=== PATIENT | female | born 1990 | race Caucasian/White ===

== ENCOUNTER 2021-02-15 09:59 | Emergency (ER) | payer OTHER, SELFPAY ==
--- NOTE | ~2021-02-15 | XR_ITS ---
EXAMINATION: XR CHEST CLINICAL INFORMATION: Shortness of breath COMPARISON: None TECHNIQUE: Frontal view of the chest was obtained. FINDINGS: No significant abnormality is noted involving the heart, lungs, mediastinum, bony thorax or soft tissues. XR/XR chest 1V IMPRESSION: Unremarkable examination.
[2021-02-15 10:47] LABS: Basophils Percent Auto 0.6 % (0-2); Lymphocytes Absolute Auto 2.2 X10*3/uL (1.2-4.9); MANUAL DIFF FLAG SCAN; SCAN SMEAR FLAG 1
[2021-02-15 10:49] LABS: Eosinophils Absolute Auto 0.1 X10*3/uL (0.0-0.4); Hematocrit 35.6 % (37-47); Hemoglobin 10.2 g/dl (12.0-16.0); Imm Gran Abs Auto 0.01 X10*3/uL (0.00-0.03); Imm Gran Pct Auto 0.2 % (0.0-0.4); Lymphocytes Percent Auto 46.3 % (20-40); Mean Corpuscular HGB Conc 28.7 g/dl (31.0-35.0); Mean Corpuscular Hemoglobin 19.4 pg (27.0-33.0); Mean Corpuscular Volume 67.8 fL (80-98); Monocytes Absolute Auto 0.4 X10*3/uL (0.1-1.2); Monocytes Percent Auto 7.6 % (2-11); Neutrophils Absolute Auto 2.1 X10*3/uL (2.0-8.3); Neutrophils Percent Auto 44.3 % (45-73); Platelet Count 192 X10*3/uL (160-400); Red Blood Count 5.25 X10*6/uL (4.20-5.50); Red Cell Distribution Width 17.8 % (11.0-16.0); White Blood Count 4.8 X10*3/uL (4.8-10.8)
[2021-02-15 10:52] LABS: PLT ABN DIST 1
--- NOTE | 2021-02-15 10:59 | ECG_ITS ---
Test Reason : CP Blood Pressure : / mmHG Vent. Rate : 072 BPM Atrial Rate : 072 BPM P-R Int : 110 ms QRS Dur : 076 ms QT Int : 368 ms P-R-T Axes : 042 060 024 degrees QTc Int : 402 ms Sinus rhythm with short NM Otherwise normal ECG No previous ECGs available Referred By: Generic ED Physician Electronically Signed By:NI ALLAN
[2021-02-15 11:18] LABS: Anion Gap 9 (12-20); Blood Urea Nitrogen 12 mg/dL (9-16); Calcium 8.7 mg/dL (8.4-10.2); Carbon Dioxide 26 mmol/L (22-29); Chloride 109 mmol/L (96-108); Estimated Glomerular Filt Rate > 60; Glucose Random 73 mg/dL (60-115); Potassium 4.3 mmol/L (3.3-5.1); Sodium 140 mmol/L (135-145)
[2021-02-15 12:34] VITALS: BP 116/72; PULSE 76; RESP 18; TEMP 36.8; O2SAT 100; BMI 20.8
[2021-02-15 13:26] LABS: Troponin-I High Sensitivity < 3.5 ng/L (<3.5-17.0)
--- NOTE | 2021-02-15 14:15 | ED.CHESTPAIN ---
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 States no previous EKG. States the pain in her chest is more with certain movements and palpation of the left-sided chest like she ?pulled a muscle? she otherwise denies any recent illness no cough no fever. Additionally she does report history of anemia 4+ months ago and is supposed to be on iron pill which she complies with intermittently. MD complaint: chest discomfort Prior episodes: No Pain location: left chest Severity: mild Quality: aching Relieving factors: rest Exacerbating factors: palpation and movement Treatment prior to arrival: none Related Data Allergies Allergy/AdvReac Type Severity Reaction Status Date / Time No Known Allergies Allergy Mild UNKNOWN Unverified 07/26/20 15:53 Review of Systems Review of Systems: Constitutional: No Weight loss, No Fever, No Chills, No Night Sweats, No Fatigue, No Malaise ENT/Mouth: No Hearing loss, No Ear Pain, No Nasal Congestion, No Sinus Pain, No Hoarseness, No sore throat, No Rhinorrhea, No Swallowing Difficulty Eyes: No Eye Pain, No Swelling, No Redness, No Foreign Body, No Discharge, No Vision Changes Cardiovascular: + Chest Pain, No SOB, No Dyspnea on Exertion, No Orthopnea, No Edema, No Palpitations Respiratory: No Cough, No Sputum, No Wheezing, No Smoke Exposure, No Dyspnea Gastrointestinal: No Nausea, No Vomiting, No Diarrhea, No Constipation, No abdominal Pain, No Hematochezia, No Melena Genitourinary: no irregular bleeding, No Dysuria, No Urinary Frequency, No Hematuria, No Urinary Incontinence, No Urgency, No Flank Pain, No Urinary Flow Changes, No Hesitancy Musculoskeletal: No joint pain, No Myalgias, No Joint Swelling Skin: No Skin Lesions, No rash Neuro: No Weakness, No Numbness, No Paresthesias, No Loss of Consciousness, No Dizziness, No Headache Psych: No Social Issues Heme/Lymph: No Bruising, No Bleeding,No Lymphadenopathy Endocrine: No Polyuria, No Polydipsia, No Temperature Intolerance Yes all other systems are reviewed and are negative [facility] Social History Social History Alcohol intake: never Smoking Status: Never smoker Use of substances other than those prescribed or required for medical reasons: No Advance Directives: Yes Advance Directives Information Provided: No Advance Directives on File: No Physical Exam Vital Signs: Vital Signs: Last Vital Signs Temp 98.6 F 02/15/21 14:57 Pulse 87 02/15/21 16:24 Resp 20 02/15/21 16:24 BP 123/72 02/15/21 16:24 Pulse Ox 98 02/15/21 16:24 Body Mass Index 20.8 Reviewed Const: General: cooperative and healthy appearing; No acute distress or intoxicated appearing Nutritional Appearance: average body habitus Orientation/consciousness: patient oriented x3 HENMT: Head: Yes normal to inspection Ears: hearing grossly normal bilaterally Eyes: General: appearance normal, both eyes and all related structures Visual Garcia: normal visual garcia by confrontation Neck: Neck: Yes normal visual inspection, No positive Brudzinski's sign, No positive Kernig's sign and No tender Thyroid: Thyroid normal Chest: Chest palpation & inspection: normal inspection of the chest and tenderness pectoral muscle on the left Resp: Effort & Inspection: normal respiratory effort Cardio: Jugular venous distension: no JVD Rhythm: regular rhythm Heart sounds: S1 normal heart sound present and S2 normal heart sound present GI: Inspection: Yes normal to inspection Percussion: Yes normal to percussion Auscultation: normal bowel sounds : General: Yes no CVA tenderness Back/Spine/Pelvis: Back: no CVA tenderness Skin: General skin exam: no rashes or lesions noted Neuro: General: patient oriented x3 Extrem: General: Yes normal to inspection Course Course Course Narrative: Anemia consistent with chronic states this is much better for her she was down to 5 she is taking her iron supplement. Atypical chest pain more consistent with musculoskeletal in etiology involving the pectoral muscle region. T-wave inversion in lead V1 and V2 consistent with persistent juvenile T-wave pattern. Does have some family history of heart disease at this time otherwise no acute findings. D-dimer/troponin negative. Will have her follow up with outpatient Cardiology for further evaluation and treatment. MDM - Chest Pain Lab Data Result diagrams: 02/15/21 10:30 02/15/21 10:30 Labs: Lab Results 02/15/21 02/15/21 02/15/21 Range/Units 10:30 10:30 10:30 WBC 4.8 (4.8-10.8) X10*3/uL RBC 5.25 (4.20-5.50) X10*6/uL Hgb 10.2 L (12.0-16.0) g/dl Hct 35.6 L (37-47) % MCV 67.8 L (80-98) fL MCH 19.4 L (27.0-33.0) pg MCHC 28.7 L (31.0-35.0) g/dl RDW 17.8 H (11.0-16.0) % Plt Count 192 (160-400) X10*3/uL MPV 10.0 (9.4-12.3) fL Immature Gran % (Auto) 0.2 (0.0-0.4) % Neut % (Auto) 44.3 L (45-73) % Lymph % (Auto) 46.3 H (20-40) % [place] % (Auto) 7.6 (2-11) % Eos % (Auto) 1.0 (0-4) % Baso % (Auto) 0.6 (0-2) % Lymph # (Auto) 2.2 (1.2-4.9) X10*3/uL [place] # (Auto) 0.4 (0.1-1.2) X10*3/uL Eos # (Auto) 0.1 (0.0-0.4) X10*3/uL Baso # (Auto) 0.0 (0.0-0.2) X10*3/uL Abs Immat Gran (auto) 0.01 (0.00-0.03) X10*3/uL Absolute Neuts (auto) 2.1 (2.0-8.3) X10*3/uL Absolute Nucleated RBC 0.000 (0.0-0.012) X10*3/uL Nucleated RBC % (auto) 0.0 (0.0-0.2) /100WBC Smear Tech's Comments Not Reportable PT (10.8-13.0) SEC INR (0.9-1.1) APTT (24.1-38.0) SEC D-Dimer NG/ML Sodium 140 (135-145) mmol/L Potassium 4.3 (3.3-5.1) mmol/L Chloride 109 H (96-108) mmol/L Carbon Dioxide 26 (22-29) mmol/L Anion Gap 9 L (12-20) BUN 12 (9-16) mg/dL Creatinine 0.82 (0.5-1.4) mg/dL Estim Creat Clear Calc TNP Estimated GFR > 60 Random Glucose 73 (60-115) mg/dL Calcium 8.7 (8.4-10.2) mg/dL Magnesium 2.0 (1.6-2.6) mg/dL Total Bilirubin 0.2 (0.0-1.0) mg/dL Direct Bilirubin < 0.2 (0.0-0.5) mg/dL AST 23 (5-31) U/L ALT 26 (0-31) U/L Alkaline Phosphatase 92 (39-117) U/L Troponin I High Sens < 3.5 (<3.5-17.0) ng/L Total Protein 6.9 (6.5-8.0) g/dL Albumin 4.2 (3.5-5.0) g/dL TSH 0.99 (0.32-4.0) uIU/mL Urine Color Urine Appearance Urine pH (5.0-8.0) Ur Specific Somis (1.005-1.025) Urine Protein (NEG-TRACE) MG/DL Urine Glucose (UA) (NEG) MG/DL Urine Ketones (NEG) MG/DL Urine Blood (NEG) Urine Nitrite (NEG) Ur Leukocyte Esterase (NEG) Urine RBC (0) /HPF Urine WBC (0-4) /HPF Ur Squamous Epith Cells /LPF Urine Bacteria /LPF Urine Test (NEGATIVE) 02/15/21 02/15/21 02/15/21 Range/Units 15:12 15:22 15:22 WBC (4.8-10.8) X10*3/uL RBC (4.20-5.50) X10*6/uL Hgb (12.0-16.0) g/dl Hct (37-47) % MCV (80-98) fL MCH (27.0-33.0) pg MCHC (31.0-35.0) g/dl RDW (11.0-16.0) % Plt Count (160-400) X10*3/uL MPV (9.4-12.3) fL Immature Gran % (Auto) (0.0-0.4) % Neut % (Auto) (45-73) % Lymph % (Auto) (20-40) % [place] % (Auto) (2-11) % Eos % (Auto) (0-4) % Baso % (Auto) (0-2) % Lymph # (Auto) (1.2-4.9) X10*3/uL [place] # (Auto) (0.1-1.2) X10*3/uL Eos # (Auto) (0.0-0.4) X10*3/uL Baso # (Auto) (0.0-0.2) X10*3/uL Abs Immat Gran (auto) (0.00-0.03) X10*3/uL Absolute Neuts (auto) (2.0-8.3) X10*3/uL Absolute Nucleated RBC (0.0-0.012) X10*3/uL Nucleated RBC % (auto) (0.0-0.2) /100WBC Smear Tech's Comments PT 13.8 H (10.8-13.0) SEC INR 1.2 H (0.9-1.1) APTT 30.7 (24.1-38.0) SEC D-Dimer < 200 NG/ML Sodium (135-145) mmol/L Potassium (3.3-5.1) mmol/L Chloride (96-108) mmol/L Carbon Dioxide (22-29) mmol/L Anion Gap (12-20) BUN (9-16) mg/dL Creatinine (0.5-1.4) mg/dL Estim Creat Clear Calc Estimated GFR Random Glucose (60-115) mg/dL Calcium (8.4-10.2) mg/dL Magnesium (1.6-2.6) mg/dL Total Bilirubin (0.0-1.0) mg/dL Direct Bilirubin (0.0-0.5) mg/dL AST (5-31) U/L ALT (0-31) U/L Alkaline Phosphatase (39-117) U/L Troponin I High Sens (<3.5-17.0) ng/L Total Protein (6.5-8.0) g/dL Albumin (3.5-5.0) g/dL TSH (0.32-4.0) uIU/mL Urine Color YELLOW Urine Appearance CLEAR Urine pH 7.5 (5.0-8.0) Ur Specific [place] 1.015 (1.005-1.025) Urine Protein NEG (NEG-TRACE) MG/DL Urine Glucose (UA) NEG (NEG) MG/DL Urine Ketones NEG (NEG) MG/DL Urine Blood NEG (NEG) Urine Nitrite NEG (NEG) Ur Leukocyte Esterase NEG (NEG) Urine RBC 0-2 (0) /HPF Urine WBC 0-2 (0-4) /HPF Ur Squamous Epith Cells TRACE /LPF Urine Bacteria 1+ /LPF Urine Test NEGATIVE (NEGATIVE) Discharge Plan Discharge Clinical Impression: Atypical chest pain, Electrocardiogram showing T wave abnormalities Iron deficiency anemia Qualifiers: Iron deficiency anemia type: unspecified iron deficiency Qualified Code(s): D50.9 - Iron deficiency anemia, unspecified Patient Disposition: Home, Self-Care Instructions: Chest Pain (ED), Iron Rich Diet (ED) Additional Instructions: Iron rich diet 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
[2021-02-15 14:46] LABS: Alanine Aminotransferase 26 U/L (0-31); Albumin Level 4.2 g/dL (3.5-5.0); Alkaline Phosphatase 92 U/L (39-117); Aspartate Amino Transferase 23 U/L (5-31); Bilirubin Direct < 0.2 mg/dL (0.0-0.5); Bilirubin Total 0.2 mg/dL (0.0-1.0); Total Protein 6.9 g/dL (6.5-8.0)
[2021-02-15 14:57] VITALS: BP 123/72; PULSE 80; RESP 17; TEMP 37; O2SAT 97
[2021-02-15 15:04] LABS: Thyroid Stimulating Hormone 0.99 uIU/mL (0.32-4.0)
[2021-02-15 15:23] LABS: INTERNATIONAL NORM RATIO 1.2 (0.9-1.1); Prothrombin Time 13.8 SEC (10.8-13.0)
[2021-02-15 15:26] LABS: Partial Thromboplastin Time 30.7 SEC (24.1-38.0)
[2021-02-15 15:34] LABS: D Dimer < 200 NG/ML
[2021-02-15 15:44] LABS: Glucose Urine UA NEG (NEG); Leukocyte Esterase Urine NEG (NEG); Nitrite Urine NEG (NEG); PH 7.5 (5.0-8.0); Specific Gravity - Urine 1.015 (1.005-1.025); Urine Blood NEG (NEG); Urine Ketones NEG (NEG); Urine Protein NEG (NEG-TRACE)
[2021-02-15 15:51] LABS: Appearance Urine CLEAR; Color Urine YELLOW
[2021-02-15 15:58] LABS: Bacteria Urine 1+ /LPF; RBC Urine 0-2 /HPF (0); Squamous Epithelial Cell Urine TRACE /LPF; WBC Urine 0-2 /HPF (0-4)
[2021-02-15 15:59] LABS: UPreg QC Valid YES; Urine Pregnancy NEGATIVE (NEGATIVE)
[2021-02-15 16:24] VITALS: BP 123/72; PULSE 87; RESP 20; O2SAT 98
== END 2021-02-15 16:52 | disposition home or self-care (01) ==
PROVIDERS: Nurse Practitioner Primary Care; Emergency Provider Internal Medicine; PCP Internal Medicine
DX: R07.89 Other chest pain (principal); D50.9 Iron deficiency anemia, unspecified; R94.31 Abnormal electrocardiogram [ECG] [EKG]
CPT/HCPCS: 36415; 71045; 80048; 80076; 81001; 81025; 83735; 84443; 84484; 85025; 85379; 85610; 85730; 93005; 99283; 99285

== ENCOUNTER 2021-09-17 15:46 | Outpatient (REF) | payer OTHER, SELFPAY ==
[2021-09-17 16:02] LABS: IDNOW Serial# 08D9AD1C; Strep A Nucleic Acid Negative (Negative)
[2021-09-17 16:43] LABS: Influenza A PCR NEGATIVE (Negative); Influenza B PCR NEGATIVE (Negative); Resp Syncy Virus RNA Qual PCR NEGATIVE (Negative); SARS COV2 PCR INHOUSE NEGATIVE (Negative)
== END 2021-09-17 15:47 | disposition home or self-care (01) ==
LOC: HO.LNP 15:46
PROVIDERS: Visit Provider Internal Medicine
DX: Z20.822 Contact with and (suspected) exposure to COVID-19 (principal); J02.9 Acute pharyngitis, unspecified; R53.83 Other fatigue
CPT/HCPCS: 0241U; 87651

== ENCOUNTER 2021-11-04 14:35 | Outpatient (REF) | payer OTHER, SELFPAY ==
[2021-11-04 16:08] LABS: Influenza A PCR NEGATIVE (Negative); Influenza B PCR NEGATIVE (Negative); Resp Syncy Virus RNA Qual PCR NEGATIVE (Negative); SARS COV2 PCR INHOUSE POSITIVE (Negative)
== END 2021-11-04 14:36 | disposition home or self-care (01) ==
LOC: HO.LNP 14:35
PROVIDERS: Visit Provider Internal Medicine
DX: Z20.822 Contact with and (suspected) exposure to COVID-19 (principal)
CPT/HCPCS: 0241U

== ENCOUNTER 2024-10-21 17:14 | Inpatient (IN) | payer OTHER, SELFPAY ==
[2024-10-21] VITALS (9 sets, daily range): BP systolic 121–151; BP diastolic 67–97; PULSE 90–119; RESP 18–24; TEMP 36.6–37.3; O2SAT 89–98; BMI 18.9
--- NOTE | ~2024-10-21 | US_ITS ---
EXAMINATION: US ABDOMEN LIMITED CLINICAL INFORMATION: Large mass on CT angiogram chest. COMPARISON: None available. TECHNIQUE: Real-time imaging of the right upper quadrant abdominal viscera. FINDINGS: PANCREAS: Visualized portions are unremarkable. LIVER: Focal area of increased echogenicity corresponding to focal fatty infiltration, corresponding to the area of decreased attenuation on CT. The liver contour is normal. Parenchymal generalized echogenicity is normal. There is no intrahepatic biliary duct dilatation seen. GALLBLADDER: Gallbladder wall measures 0.3 cm. Partially contracted. Question subtle fluid within gallbladder wall, but no definite gallbladder wall thickening COMMON BILE DUCT: Normal in caliber measuring 0.1 cm in diameter. RIGHT KIDNEY: The kidney measures 8.7 cm in length. Stone in the midpole measuring 0.2 cm. No hydronephrosis.. FREE FLUID: None. US/US abdomen limited IMPRESSION: 1. Focal fatty infiltration of liver corresponding to the area of decreased attenuation on CT. 2. Question subtle fluid within the gallbladder wall, but no definite gallbladder wall thickening. No gallstones. Suspect normal variation. 3. Nonobstructing right renal stone. Electronically signed by: Baron Martinez MD 10/21/2024 11:03 PM [facility]
--- NOTE | ~2024-10-21 | CT_ITS ---
EXAMINATION: CT ANGIOGRAM OF THE CHEST WITH AND WITHOUT CONTRAST (CT PULMONARY ANGIOGRAM FOR PE) CLINICAL INFORMATION: Shortness of breath, tachycardia, ?PE COMPARISON: No pertinent prior studies are available for comparison. TECHNIQUE: Prior to contrast administration, noncontrast localization images were obtained. Subsequently, multidetector volumetric imaging was performed from the thoracic inlet to the pubic symphysis through the chest, abdomen, and pelvis following the administration of 65 mL Omnipaque 350 intravenous contrast. No contrast reaction reported Sagittal, coronal, and MIP oblique sagittal (through the chest only) reformatted images were obtained on the CT workstation, uploaded to PACS, and reviewed. This CT examination was performed using dose optimization techniques as appropriate, variously including the following: *Automated exposure control *Adjustment of mA and/or kV according to patient size (this includes techniques or standardized protocols for targeted exams where dose is matched to indication/reason for exam; i.e. extremities or head) *Use of iterative reconstruction technique Total exam dose-length product: 148 mGy-cm FINDINGS: QUALITY OF STUDY/CONTRAST BOLUS: Satisfactory. PULMONARY ARTERIES: No central or segmental pulmonary emboli. CORONARY ARTERY CALCIUM: None seen THORACIC AORTA: No aneurysm or dissection. LUNG: There is moderate emphysema with hyperinflated lungs. Biapical pleural-parenchymal scarring is present. There is bronchial thickening without bronchiectasis. No focal consolidations. PLEURA: No pleural effusion or pneumothorax. MEDIASTINUM: There is an aberrant right subclavian artery. Normal heart size. No pericardial effusion. No hilar or mediastinal lymphadenopathy. No evidence of septal bowing or right heart strain. CHEST WALL/AXILLA: No axillary or internal mammary lymphadenopathy. OSSEOUS STRUCTURES: No acute or suspicious osseous abnormality. VISUALIZED ABDOMEN: No significant findings in the upper abdomen. Geographic area of hypoattenuation adjacent to the falciform ligament in the right lobe of the liver probably representing focal fat. Ultrasound is recommended to exclude a mass. CT/CT angio chest PE protocol IMPRESSION: 1. No evidence of pulmonary emboli. 2. Moderate emphysema. 3. Geographic area of hypoattenuation adjacent to the falciform ligament in the right lobe of the liver probably representing focal fat. Ultrasound is recommended to exclude a mass. VTE: negative. Fleischner guidelines were followed. Electronically signed by: Justin Stone MD 10/21/2024 09:30 PM EST
--- NOTE | ~2024-10-21 | XR_ITS ---
EXAMINATION: XR CHEST CLINICAL INFORMATION: shortness of breath COMPARISON: None available. TECHNIQUE: 2 views of the chest were obtained. FINDINGS: No significant abnormality is noted involving the heart, lungs, mediastinum, bony thorax or soft tissues. XR/XR chest 2V IMPRESSION: Unremarkable examination. Electronically signed by: Homero Trinidad MD 10/21/2024 06:30 PM [facility] [place]
--- NOTE | 2024-10-21 17:28 | ED.ASTHMA ---
HPI - Asthma General Chief Complaint: Asthma Stated Complaint: diff breathing, asthma. o2 98% on duo neb Time Seen by Provider: 10/21/24 17:20 Source: patient and EMS Mode of arrival: EMS Limitations: no limitations History of Present Illness ED Provider: Dilia Chavez NP HPI Narrative: Patient is a 34-year-old female who presents to the emergency department for evaluation. She reports that she began experiencing shortness of breath last night that she feels is consistent with an asthma attack. She has been experiencing a recently intermittent productive cough. She states that she was sitting in a local [employer] all day today because she could not tolerate being outside. Ultimately EMS was called. Prior to arrival to the hospital she was given a DuoNeb updraft, magnesium 2 g IV and Solu-Medrol IV. She reports some improvement in her symptoms after receiving this. On arrival O2 saturation was 89% on room air, placed back on 2 L via nasal cannula and O2 saturation increased to 95%, she is tachycardic and tachypneic. She denies known fever, chills, sick contacts, neck pain, palpitations, chest pain, nausea, vomiting, abdominal pain, numbness or tingling of the extremities, recent lower extremity pain or swelling. She is very tearful at the time of my initial evaluation. She admits that she is currently homeless. She was recently at [facility], and sent to [facility] from which she left about 3 weeks ago, her plan was to, home with her parents but she states ?that plan fell through?. She does admit that she has been smoking crack cocaine but states she has not used since yesterday. Admits to a history of IV heroin usage but reports that she has not used in 5 months. States that she was taking Suboxone, but recently her tent group home was removed by personnel including her prescription for Suboxone. She states that she has been trying to bite off the street but it has proven to expensive for her to do so. Uncertain when she last took her Suboxone. Related Data Allergies Allergy/AdvReac Type Severity Reaction Status Date / Time No Known Allergies Allergy Mild UNKNOWN Unverified 10/21/24 17:25 Review of Systems Review of Systems: Yes all other systems are reviewed and are negative PMFSH Past Medical History Attestation statement: The following information was validated with the patient. Source: old records reviewed Social History Social History (System 09/08/23 @ 13:36 by Teresa Klein) Alcohol intake: never Smoked in Last 30 Days: No Use of substances other than those prescribed or required for medical reasons: Yes Substance Use Type: Crack/Cocaine Advance Directives: No Advance Directives Information Provided: No Physical Exam Vital Signs: Vital Signs: Last Vital Signs Temp 97.8 F 10/21/24 23:23 Pulse 95 10/21/24 23:23 Resp 20 10/21/24 23:23 BP 121/72 10/21/24 23:23 Pulse Ox 93 10/21/24 23:23 O2 Del Method Room Air 10/21/24 23:23 O2 Flow Rate 3 10/21/24 20:43 BMI result Body Mass Index 18.9 Appearance: Alert.?Oriented to person, place and time. Tearful. Anxious. Eyes: Pupils equal, round and reactive to light.? ENT: Pharynx normal.?? Neck: Normal inspection.? Neck supple.?? CVS: Heart sounds normal. Tachycardic.? Pulses normal.?? Respiratory: Tachypneic, no tripoding. Room-air hypoxia. Lung sounds rhonchi bilaterally Abdomen: Soft and non-tender. Normoactive bowel sounds. Skin: Skin warm and dry.? Normal skin color.? Extremities: No lower extremity edema.? No calf ttp? Neuro: Moves all extremities spontaneously. Sensation intact bilaterally. No focal neuro deficits. Ambulates with normal steady gait. Course Reevaluation(s) Reevaluation #1: Patient signed out to Abdon AMARO pending CT angio of the chest re-evaluation. Time: 21:04 Reevaluation #2: Christine Quiroz PA-C have accepted care of the patient and signed out pending imaging and final disposition I have independently reviewed the following tests: CT angio chest: CT/CT angio chest PE protocol IMPRESSION: 1. No evidence of pulmonary emboli. 2. Moderate emphysema. 3. Geographic area of hypoattenuation adjacent to the falciform ligament in the right lobe of the liver probably representing focal fat. Ultrasound is recommended to exclude a mass. VTE: negative. Fleischner guidelines were followed. We will add on LFTs and obtain a liver ultrasound given the finding on the CT angiogram Ultrasound of the liver: US/US abdomen limited IMPRESSION: 1. Focal fatty infiltration of liver corresponding to the area of decreased attenuation on CT. 2. Question subtle fluid within the gallbladder wall, but no definite gallbladder wall thickening. No gallstones. Suspect normal variation. 3. Nonobstructing right renal stone. Electronically signed by: Baron Martinez MD 10/21/2024 11:03 [place] [facility] [place] normal Patient received ceftriaxone already, we will add doxy, she can not have azithromycin or fluoroquinolone given she has a QT prolongation on her EKG Medications Administered Discontinued Medications Generic Name Dose Route Start Last Admin Trade Name Freq PRN Reason Stop Dose Admin Ceftriaxone Sodium 1 gm 10/21/24 17:39 10/21/24 18:19 Ceftriaxone Sodium 1 Gm Vial IVPUSH 10/21/24 17:40 1 gm ONCE ONE Administration Albuterol Sulfate 7.5 mg/ 0 mg 10/21/24 20:47 10/21/24 20:50 Albuterol/Ipratropium 3 ml INHALE 10/21/24 20:48 1 each ONCE ONE Administration Sodium Chloride 1,000 mls @ 999 mls/hr 10/21/24 20:45 10/21/24 22:11 Ns IV 10/21/24 21:45 Infused .Q1H1M PUMA Infusion Iohexol 65 ml 10/21/24 20:13 10/21/24 20:13 Iohexol 350 Mg/Ml 100 Ml Infus..Btl IV 10/21/24 20:14 65 ml ONCE ONE Administration Medical Decision Making Medical Decision Making MDM Narrative: Patient is a 34-year-old female with reported past medical history of asthma, polysubstance use disorder presenting to emergency department for evaluation of shortness of breath since yesterday as per HPI. Arrives tearful, anxious, tachypneic and tachycardic with room air hypoxia. Pre-hospital she received DuoNeb updraft, Solu-Medrol IV and magnesium IV. Concern for asthma exacerbation versus possible pneumonia., Will obtain CBC to evaluate for leukocytosis/ anemia, CMP and lipase to evaluate for abnormal electrolytes /abnormal renal function/ abnormal hepatic/biliary function, EKG and troponin to evaluate for ischemia/ACS. Chest x-ray to evaluate for consolidation/ infiltrate/ mass/ pulmonary congestion and Urinalysis. Remains on 2 L via nasal cannula due to hypoxic respiratory failure on room air Differential Diagnosis Differential Diagnoses: The differential diagnosis associated with the presentation includes Overall well-appearing, nontoxic, afebrile, no respiratory distress. No rash or lesions, urticaria, or evidence of angioedema to suggest allergic reaction/anaphylaxis. No swallowing difficulties to suggest aspiration. No associated chest pain, lower extremity redness pain or swelling, history of VTE/malignancy to suggest ACS. CHF, pericardial effusion, or pulmonary embolism. No palpitations or history of known arrhythmias. No recent trauma or injury, no tracheal deviation, unlikely tension pneumothorax. No history of diabetes, unlikely DKA. No acute bleeding or known anemia, no associated dizziness fatigue or chest pain to suggest acute anemia. Admission/Observation Consideration of admission/observation: Escalation of care including admission/observation considered (See narrative above in course narrative for further detail) Lab Data MDM Lab Attestation statement: I reviewed the patient's lab results. 10/21/24 18:18 10/21/24 18:17 Labs: Lab Results 10/21/24 10/21/24 10/21/24 Range/Units 18:17 18:18 19:32 WBC 15.9 H (4.8-10.8) X10*3/uL RBC 5.44 (4.20-5.50) X10*6/uL Hgb 13.6 (12.0-16.0) g/dl Hct 42.2 (37.0-47.0) % MCV 77.6 L (80.0-98.0) fL MCH 25.0 L (27.0-33.0) pg MCHC 32.2 (31.0-35.0) g/dl RDW 13.1 (11.0-16.0) % Plt Count TNP MPV TNP Immature Gran % (Auto) 0.3 (0.0-0.4) % Neut % (Auto) 86.9 H (45-73) % Lymph % (Auto) 6.5 L (20-40) % [place] % (Auto) 4.1 (2-11) % Eos % (Auto) 1.9 (0-4) % Baso % (Auto) 0.3 (0-2) % Lymph # (Auto) 1.0 L (1.2-4.9) X10*3/uL [place] # (Auto) 0.7 (0.1-1.2) X10*3/uL Eos # (Auto) 0.3 (0.0-0.4) X10*3/uL Baso # (Auto) 0.1 (0.0-0.2) X10*3/uL Abs Immat Gran (auto) 0.05 H (0.00-0.03) X10*3/uL Absolute Neuts (auto) 13.8 H (2.0-8.3) x10*3/uL Absolute Nucleated RBC 0.000 (0.0-0.012) X10*3/uL Nucleated RBC % (auto) 0.0 (0.0-0.2) /100WBC Smear Tech's Comments VERIFIED ESR 3 (0-20) MM/HR PT 12.7 H (10.9-12.4) SEC INR 1.1 (0.9-1.1) Sodium 142 (135-145) mmol/L Potassium 3.5 (3.3-5.1) mmol/L Chloride 103 (96-108) mmol/L Carbon Dioxide 26 (22-29) mmol/L Anion Gap 17 (12-20) BUN 6 L (9-16) mg/dL Creatinine 0.66 (0.5-1.4) mg/dL Estim Creat Clear Calc 85.2 Estimated GFR > 60 Random Glucose 125 H (60-115) mg/dL Lactic Acid 1.8 (0.5-2.0) mmol/L Calcium 9.0 (8.4-10.2) mg/dL Magnesium 3.0 H (1.6-2.6) mg/dL Total Bilirubin 0.3 (0.0-1.0) mg/dL Direct Bilirubin (0.0-0.5) mg/dL AST 29 (5-31) U/L ALT 24 (0-31) U/L Alkaline Phosphatase 89 (39-117) U/L Troponin I High Sens < 2.7 (<3.5-17.0) ng/L C-Reactive Protein 0.58 H (< or = 0.50) mg/dL B-Natriuretic Peptide 113 H (<100) pg/mL Total Protein 7.4 (6.5-8.0) g/dL Albumin 4.4 (3.5-5.0) g/dL Lipase 10 (8-78) U/L Beta HCG, Quant < 2 mIU/mL Urine Color Yellow Urine Appearance Clear Urine pH 7.0 (5.0-9.0) Ur Specific [place] <= 1.005 (1.005-1.025) Urine Protein Negative (Neg-Trace) mg/dL Urine Glucose (UA) 500 H (Negative) mg/dL Urine Ketones Negative (Negative) mg/dL Urine Blood Trace H (Negative) Urine Nitrite Negative (Negative) Ur Leukocyte Esterase Trace H (Negative) Urine RBC 0-2 (0-2) /HPF Urine WBC 0-5 (0-5) /HPF Ur Squamous Epith Cells 0-2 (0-2) /HPF Urine Bacteria None Seen (None Seen) Hyaline Casts 0-2 (0-2) /LPF Urine Opiates Screen Not Detected (Not Detect) Ur Buprenorphine Scrn Positive H (Not Detect) ng/mL Ur Oxycodone Screen Not Detected (Not Detect) ng/mL Urine Methadone Screen Not Detected (Not Detect) ng/mL Urine Fentanyl Screen Not Detected (Not Detect) Ur Barbiturates Screen Not Detected (Not Detect) Ur Phencyclidine Scrn Not Detected (Not Detect) Ur Amphetamines Screen Not Detected (Not Detect) U Benzodiazepines Scrn Not Detected (Not Detect) Urine Cocaine Screen POSITIVE H (Not Detect) U Marijuana (THC) Screen Not Detected (Not Detect) Influenza Type A (PCR) NEGATIVE (Negative) Influenza Type B (PCR) NEGATIVE (Negative) RSV RNA Qual (PCR) NEGATIVE (Negative) SARS-CoV-2 RNA (RT-PCR) NEGATIVE (Negative) 10/21/24 Range/Units 20:55 WBC (4.8-10.8) X10*3/uL RBC (4.20-5.50) X10*6/uL Hgb (12.0-16.0) g/dl Hct (37.0-47.0) % MCV (80.0-98.0) fL MCH (27.0-33.0) pg MCHC (31.0-35.0) g/dl RDW (11.0-16.0) % Plt Count MPV Immature Gran % (Auto) (0.0-0.4) % Neut % (Auto) (45-73) % Lymph % (Auto) (20-40) % [place] % (Auto) (2-11) % Eos % (Auto) (0-4) % Baso % (Auto) (0-2) % Lymph # (Auto) (1.2-4.9) X10*3/uL [place] # (Auto) (0.1-1.2) X10*3/uL Eos # (Auto) (0.0-0.4) X10*3/uL Baso # (Auto) (0.0-0.2) X10*3/uL Abs Immat Gran (auto) (0.00-0.03) X10*3/uL Absolute Neuts (auto) (2.0-8.3) x10*3/uL Absolute Nucleated RBC (0.0-0.012) X10*3/uL Nucleated RBC % (auto) (0.0-0.2) /100WBC Smear Tech's Comments ESR (0-20) MM/HR PT (10.9-12.4) SEC INR (0.9-1.1) Sodium (135-145) mmol/L Potassium (3.3-5.1) mmol/L Chloride (96-108) mmol/L Carbon Dioxide (22-29) mmol/L Anion Gap (12-20) BUN (9-16) mg/dL Creatinine (0.5-1.4) mg/dL Estim Creat Clear Calc Estimated GFR Random Glucose (60-115) mg/dL Lactic Acid (0.5-2.0) mmol/L Calcium (8.4-10.2) mg/dL Magnesium (1.6-2.6) mg/dL Total Bilirubin 0.2 (0.0-1.0) mg/dL Direct Bilirubin < 0.2 (0.0-0.5) mg/dL AST 26 (5-31) U/L ALT 24 (0-31) U/L Alkaline Phosphatase 84 (39-117) U/L Troponin I High Sens < 2.7 (<3.5-17.0) ng/L C-Reactive Protein (< or = 0.50) mg/dL B-Natriuretic Peptide (<100) pg/mL Total Protein 6.8 (6.5-8.0) g/dL Albumin 4.1 (3.5-5.0) g/dL Lipase (8-78) U/L Beta HCG, Quant mIU/mL Urine Color Urine Appearance Urine pH (5.0-9.0) Ur Specific [place] (1.005-1.025) Urine Protein (Neg-Trace) mg/dL Urine Glucose (UA) (Negative) mg/dL Urine Ketones (Negative) mg/dL Urine Blood (Negative) Urine Nitrite (Negative) Ur Leukocyte Esterase (Negative) Urine RBC (0-2) /HPF Urine WBC (0-5) /HPF Ur Squamous Epith Cells (0-2) /HPF Urine Bacteria (None Seen) Hyaline Casts (0-2) /LPF Urine Opiates Screen (Not Detect) Ur Buprenorphine Scrn (Not Detect) ng/mL Ur Oxycodone Screen (Not Detect) ng/mL Urine Methadone Screen (Not Detect) ng/mL Urine Fentanyl Screen (Not Detect) Ur Barbiturates Screen (Not Detect) Ur Phencyclidine Scrn (Not Detect) Ur Amphetamines Screen (Not Detect) U Benzodiazepines Scrn (Not Detect) Urine Cocaine Screen (Not Detect) U Marijuana (THC) Screen (Not Detect) Influenza Type A (PCR) (Negative) Influenza Type B (PCR) (Negative) RSV RNA Qual (PCR) (Negative) SARS-CoV-2 RNA (RT-PCR) (Negative) Independent Interpretation I performed an independent interpretation of an: EKG and Plain X-Ray (No Consolidation or infiltrate) Interpretation: EKG revealing a sinus tachycardia with a ventricular rate of 104, QTC 494, there is some artifact in the tracing however there is profound T-wave inversion in V1-V3 concern for ST depression. I reviewed prior EKG from 2020 and these are new changes. Reviewed with my attending Dr. Pearson. At this time will plan for delta troponin in 2 hours as well as repeat EKG, CT angio of the chest to evaluate for pulmonary embolism. Radiology Impression Discussion of test interpretation with radiology: I have reviewed the radiologist's reading. Radiologist Impression: XR/XR chest 2V IMPRESSION: Unremarkable examination. Independent Historian Clinical information obtained from an independent historian. History obtained from or confirmed by: EMS Prescription Management I considered prescription management with: Antibiotic Discharge Plan Discharge Clinical Impression: Acute hypoxemic respiratory failure Patient Disposition: Admitted As Inpatient Print Language: [place]
--- NOTE | 2024-10-21 17:39 | ECG_ITS ---
Test Reason : athsma Blood Pressure : / mmHG Vent. Rate : 104 BPM Atrial Rate : 104 BPM P-R Int : 118 ms QRS Dur : 082 ms QT Int : 376 ms P-R-T Axes : -29 -11 -08 degrees QTc Int : [address] & T wave abnormality, consider anterior ischemia Abnormal ECG When compared with ECG of 15-FEB-2021 10:28, Questionable change in QRS axis Inverted T waves have replaced nonspecific T wave abnormality in Inferior leads T wave inversion more evident in Anterior leads QT has lengthened Referred By: Dilia Chavez Electronically Signed By:DAY MARLEY MD
[2024-10-21] MEDS: cefTRIAXone sodium 1 GM VIAL IVPUSH (18:19)
[2024-10-21 18:47] LABS: Lactic Acid 1.8 mmol/L (0.5-2.0)
[2024-10-21 18:48] LABS: Alanine Aminotransferase 24 U/L (0-31); Albumin Level 4.4 g/dL (3.5-5.0); Alkaline Phosphatase 89 U/L (39-117); Anion Gap 17 (12-20); Aspartate Amino Transferase 29 U/L (5-31); Bilirubin Total 0.3 mg/dL (0.0-1.0); Blood Urea Nitrogen 6 mg/dL (9-16); C Reactive Protein 0.58 mg/dL (< or = 0.50); Carbon Dioxide 26 mmol/L (22-29); Chloride 103 mmol/L (96-108); Creatinine Clr Calc Pharmacy 85.2; Estimated Glomerular Filt Rate > 60; Glucose Random 125 mg/dL (60-115); Lipase 10 U/L (8-78); Potassium 3.5 mmol/L (3.3-5.1); Sodium 142 mmol/L (135-145); Total Protein 7.4 g/dL (6.5-8.0)
[2024-10-21 18:54] LABS: B Type Natriuretic Peptide 113 pg/mL (<100)
[2024-10-21 18:59] LABS: Troponin-I High Sensitivity < 2.7 ng/L (<3.5-17.0)
[2024-10-21 19:00] LABS: Mean Corpuscular Volume 77.6 fL (80.0-98.0); PLT CLUMP 1; SCAN SMEAR FLAG 1
[2024-10-21 19:02] LABS: Basophils Absolute Auto 0.1 X10*3/uL (0.0-0.2); Basophils Percent Auto 0.3 % (0-2); Eosinophils Absolute Auto 0.3 X10*3/uL (0.0-0.4); Eosinophils Percent Auto 1.9 % (0-4); Hematocrit 42.2 % (37.0-47.0); Hemoglobin 13.6 g/dl (12.0-16.0); Imm Gran Abs Auto 0.05 X10*3/uL (0.00-0.03); Imm Gran Pct Auto 0.3 % (0.0-0.4); Lymphocytes Percent Auto 6.5 % (20-40); MANUAL DIFF FLAG SCAN; Mean Corpuscular HGB Conc 32.2 g/dl (31.0-35.0); Monocytes Absolute Auto 0.7 X10*3/uL (0.1-1.2); Monocytes Percent Auto 4.1 % (2-11); Neutrophils Absolute Auto 13.8 x10*3/uL (2.0-8.3); Neutrophils Percent Auto 86.9 % (45-73); Red Blood Count 5.44 X10*6/uL (4.20-5.50); Red Cell Distribution Width 13.1 % (11.0-16.0)
[2024-10-21 19:08] LABS: INTERNATIONAL NORM RATIO 1.1 (0.9-1.1); Prothrombin Time 12.7 SEC (10.9-12.4)
[2024-10-21 19:12] LABS: Influenza A PCR NEGATIVE (Negative); Influenza B PCR NEGATIVE (Negative); Resp Syncy Virus RNA Qual PCR NEGATIVE (Negative); SARS COV2 PCR INHOUSE NEGATIVE (Negative)
[2024-10-21 19:26] LABS: Erythrocyte Sedimentation Rate 3 MM/HR (0-20)
[2024-10-21 19:30] LABS: White Blood Count 15.9 X10*3/uL (4.8-10.8)
[2024-10-21 19:35] LABS: SLIDE REVIEW VERIFIED
[2024-10-21 19:42] LABS: Appearance Urine Clear; Color Urine Yellow; Glucose Urine UA 500 mg/dL (Negative); Leukocyte Esterase Urine Trace (Negative); Nitrite Urine Negative (Negative); Specific Gravity - Urine <= 1.005 (1.005-1.025); UMIC TRIGGER UACC YES; Urine Blood Trace (Negative); Urine Ketones Negative (Negative); Urine Protein Negative (Neg-Trace)
[2024-10-21 19:46] LABS: HCG Quantitative < 2 mIU/mL
[2024-10-21 19:46] LABS: Bacteria Urine None Seen (None Seen); Hyaline Casts Urine 0-2 /LPF (0-2); RBC Urine 0-2 /HPF (0-2); Squamous Epithelial Cell Urine 0-2 /HPF (0-2); WBC Urine 0-5 /HPF (0-5)
[2024-10-21 19:51] LABS: Amphetamine Screen Urine Not Detected (Not Detect); Barbiturates, Urine Not Detected (Not Detect); Benzodiazepines Screen Urine Not Detected (Not Detect); Buprenorphine Scr Positive (Not Detect); Cannabinoid Screen Urine Not Detected (Not Detect); Cocaine Screen Urine POSITIVE (Not Detect); Fentanyl, urine Not Detected (Not Detect); Methadone Screen, Urine Not Detected (Not Detect); Opiate Screen Urine Not Detected (Not Detect); Oxycodone Screen Urine Not Detected (Not Detect); Phencyclidine Screen Urine Not Detected (Not Detect)
[2024-10-21] MEDS: iohexoL 350 MG/ML 100 ML INFUS..BTL 65 ML IV (20:13)
--- NOTE | 2024-10-21 20:20 | ECG_ITS ---
Test Reason : REPEAT EKG Blood Pressure : / mmHG Vent. Rate : 088 BPM Atrial Rate : 088 BPM P-R Int : 110 ms QRS Dur : 082 ms QT Int : 400 ms P-R-T Axes : 051 059 042 degrees QTc Int : 484 ms Sinus rhythm with short OK T wave abnormality, consider anterior ischemia Prolonged QT Abnormal ECG When compared with ECG of 21-OCT-2024 18:59, Questionable change in QRS axis Referred By: Dilia Chavez Electronically Signed By:DAY MARLEY MD
[2024-10-21] MEDS: 0.9 % Sodium Chloride 1,000 ML 999 ML IV (20:47)
[2024-10-21] MEDS: Albuterol Sulfate 7.5 MG, Albuterol/Iprat 2.5/0.5MG 3 ML 3 ML INHALE (20:50)
[2024-10-21 21:33] LABS: Troponin-I High Sensitivity < 2.7 ng/L (<3.5-17.0)
[2024-10-21 22:15] LABS: Alanine Aminotransferase 24 U/L (0-31); Albumin Level 4.1 g/dL (3.5-5.0); Alkaline Phosphatase 84 U/L (39-117); Aspartate Amino Transferase 26 U/L (5-31); Bilirubin Direct < 0.2 mg/dL (0.0-0.5); Bilirubin Total 0.2 mg/dL (0.0-1.0); Total Protein 6.8 g/dL (6.5-8.0)
[2024-10-22] VITALS (12 sets, daily range): BP systolic 104–124; BP diastolic 56–79; PULSE 82–106; RESP 14–20; TEMP 36.3–37.2; O2SAT 94–997
[2024-10-22] MEDS: Albuterol/Iprat 2.5/0.5MG 3 ML AMPUL.NEB INHALE ×5 (00:43→20:47)
[2024-10-22] MEDS: LORazepam 2 MG/ML VIAL 1 MG IVPUSH ×2 (00:47→10:45)
[2024-10-22] MEDS: Doxycycline Hyclate 100 MG in 0.9 % Sodium Chloride 250 ML 166.67 MG IV (00:47)
[2024-10-22 01:07] LABS: Venous Blood Gas Refer to POC result
--- NOTE | 2024-10-22 01:10 | P.HPHOSP_ITS ---
History of Present Illness Date of Service: 10/22/24 Attending physician on admission: Pablito Montelongo Chief Complaint: Shortness of breaths Jagruti Alexis is a 34 years old woman with past medical history significant for asthma and polysubstance abuse was brought to the emergency department via EMS due to worsening shortness on breath over the last 2 days associated with wheezing and productive cough. Did not report fever or chills. Did not report any headache, palpitations or weakness. Patient did not report any acute gastrointestinal genitourinaror y symptoms. She snorts cocaine and uses Suboxone. Denied tobacco smoking. She stated that she does not use rescue inhalers and mentioned that she ran out of her home medications including Klonopin, hydroxyzine and trazodone. In the ED, she was initially found to have tachypnea. Her oxygen saturation only dropped to 89% on room air. On my evaluation nasal cannula was removed and the patient kept adequate O2 sats. Blood workup showed leukocytosis of 15.9 (EMS gave her solumedrol IV). Hemoglobin is normal. There are no electrolyte imbalances. Renal function and LFTs are normal. Troponin is negative x2. BNP is 113. Venous blood gas showed no respiratory acidosis. test is negative. Toxicology is positive for buprenorphine and cocaine. COVID-19, influenza and RSV is negative. CXR is negative. Chest CTA showed no PE, however showed moderate emphysema and right lobe of the liver abnormality. Abdominal ultrasound showed focal fatty infiltration of the liver. ECG showed asymmetrical T-wave inversions in the anterior leads, QTC is 484 ms. ED tx: Ceftriaxone 1 g IV, doxycycline 100 mg IV, albuterol nebs, NS 1 L bolus, Ativan 1 g IV. Review of Systems 2 Review of Systems: All 12 systems were reviewed and normal except as noted in HPI. [facility] Social History (System 09/08/23 @ 13:36 by Teresa Klein) Alcohol intake: never Smoked in Last 30 Days: No Use of substances other than those prescribed or required for medical reasons: Yes Substance Use Type: Crack/Cocaine Advance Directives: No Advance Directives Information Provided: No Meds Allergies Allergy/AdvReac Type Severity Reaction Status Date / Time No Known Allergies Allergy Mild UNKNOWN Unverified 10/21/24 17:25 Active Medications: Current Medications Acetaminophen (Acetaminophen 325 Mg Tablet) 975 mg PO Q6H PRN PRN Reason: Pain, Mild (Pain Scale 1-3), fever or headache Albuterol Sulfate (Albuterol Sulfate (0.083%) 2.5 Mg/3 Ml Vial.Neb) 2.5 mg INHALE Q2H PRN PRN Reason: Shortness of Breath/Wheezing Albuterol/Ipratropium (Albuterol/Iprat 2.5/0.5mg 3 Ml Ampul.Neb) 3 ml INHALE RQ4H WHILE AWAKE [facility] Buprenorphine/Naloxone (Buprenorphine/Naloxone 8/2 Mg Film) 1 film SUBLINGUAL ONCE STA Stop: 10/22/24 01:05 Hydroxyzine HCl (Hydroxyzine Hcl 25 Mg Tablet) 25 mg PO ONCE STA Stop: 10/22/24 01:05 Doxycycline Hyclate 100 mg/ (Sodium Chloride) 250 mls @ 166.67 mls/hr IV ONCE ONE Stop: 10/22/24 02:04 Last Admin: 10/22/24 00:47 Dose: 166.67 mls/hr Prednisone (Prednisone 20 Mg Tablet) 40 mg PO DAILY [facility] Stop: 10/26/24 09:01 Sodium Chloride (0.9 % Sodium Chloride Flush 3 Ml Syringe) 3 ml IVFLUSH QSHIFT [facility] Trazodone HCl (Trazodone Hcl 50 Mg Tablet) 50 mg PO ONCE STA Stop: 10/22/24 01:05 Physical Exam 2 Vital Signs and Narrative: Vital Signs: Last Vital Signs Temp 97.8 F 10/21/24 23:23 Pulse 96 10/22/24 00:38 Resp 20 10/22/24 00:38 BP 121/72 10/21/24 23:23 Pulse Ox 93 10/21/24 23:23 O2 Del Method Room Air 10/21/24 23:23 O2 Flow Rate 3 10/21/24 20:43 BMI result Body Mass Index 18.9 Constitutional - Awake and Alert. Restlessness HEENT - PER, EOMI Heart - S1S2, RRR, No murmus. Lungs - Normal lung expansion, Normal respiratory effort, No respiratory distress. No tachypnea. Very minimal end expiratory wheezes. Abdomen - NT / ND; +BS; No rebound or guarding Extremities - no calf tenderness bilaterally, no swelling Musculoskeletal - Normal inspection, normal ROM Skin - Warm/Dry Neurological - Alert & oriented x3. No focal weakness grossly noted. Psychological - Appropriate affect Results Labs 10/21/24 18:18 10/21/24 18:17 Labs: Laboratory Results - last 24 hr 10/21/24 10/21/24 10/21/24 18:17 18:18 19:32 MCV 77.6 L MCH 25.0 L MCHC 32.2 RDW 13.1 Plt Count TNP MPV TNP Immature Gran % (Auto) 0.3 Neut % (Auto) 86.9 H Lymph % (Auto) 6.5 L [place] % (Auto) 4.1 Eos % (Auto) 1.9 Baso % (Auto) 0.3 Lymph # (Auto) 1.0 L [place] # (Auto) 0.7 Eos # (Auto) 0.3 Baso # (Auto) 0.1 Abs Immat Gran (auto) 0.05 H Absolute Neuts (auto) 13.8 H Absolute Nucleated RBC 0.000 Nucleated RBC % (auto) 0.0 Smear Tech's Comments VERIFIED ESR 3 PT 12.7 H INR 1.1 Anion Gap 17 Estim Creat Clear Calc 85.2 Estimated GFR > 60 Random Glucose 125 H Lactic Acid 1.8 Calcium 9.0 Magnesium 3.0 H Total Bilirubin 0.3 Direct Bilirubin AST 29 ALT 24 Alkaline Phosphatase 89 Troponin I High Sens < 2.7 C-Reactive Protein 0.58 H B-Natriuretic Peptide 113 H Total Protein 7.4 Albumin 4.4 Lipase 10 Beta HCG, Quant < 2 Urine Color Yellow Urine Appearance Clear Urine pH 7.0 Ur Specific [place] <= 1.005 Urine Protein Negative Urine Glucose (UA) 500 H Urine Ketones Negative Urine Blood Trace H Urine Nitrite Negative Ur Leukocyte Esterase Trace H Urine RBC 0-2 Urine WBC 0-5 Ur Squamous Epith Cells 0-2 Urine Bacteria None Seen Hyaline Casts 0-2 Urine Opiates Screen Not Detected Ur Buprenorphine Scrn Positive H Ur Oxycodone Screen Not Detected Urine Methadone Screen Not Detected Urine Fentanyl Screen Not Detected Ur Barbiturates Screen Not Detected Ur Phencyclidine Scrn Not Detected Ur Amphetamines Screen Not Detected U Benzodiazepines Scrn Not Detected Urine Cocaine Screen POSITIVE H U Marijuana (THC) Screen Not Detected Influenza Type A (PCR) NEGATIVE Influenza Type B (PCR) NEGATIVE RSV RNA Qual (PCR) NEGATIVE SARS-CoV-2 RNA (RT-PCR) NEGATIVE 10/21/24 20:55 MCV MCH MCHC RDW Plt Count MPV Immature Gran % (Auto) Neut % (Auto) Lymph % (Auto) [place] % (Auto) Eos % (Auto) Baso % (Auto) Lymph # (Auto) [place] # (Auto) Eos # (Auto) Baso # (Auto) Abs Immat Gran (auto) Absolute Neuts (auto) Absolute Nucleated RBC Nucleated RBC % (auto) Smear Tech's Comments ESR PT INR Anion Gap Estim Creat Clear Calc Estimated GFR Random Glucose Lactic Acid Calcium Magnesium Total Bilirubin 0.2 Direct Bilirubin < 0.2 AST 26 ALT 24 Alkaline Phosphatase 84 Troponin I High Sens < 2.7 C-Reactive Protein B-Natriuretic Peptide Total Protein 6.8 Albumin 4.1 Lipase Beta HCG, Quant Urine Color Urine Appearance Urine pH Ur Specific [place] Urine Protein Urine Glucose (UA) Urine Ketones Urine Blood Urine Nitrite Ur Leukocyte Esterase Urine RBC Urine WBC Ur Squamous Epith Cells Urine Bacteria Hyaline Casts Urine Opiates Screen Ur Buprenorphine Scrn Ur Oxycodone Screen Urine Methadone Screen Urine Fentanyl Screen Ur Barbiturates Screen Ur Phencyclidine Scrn Ur Amphetamines Screen U Benzodiazepines Scrn Urine Cocaine Screen U Marijuana (THC) Screen Influenza Type A (PCR) Influenza Type B (PCR) RSV RNA Qual (PCR) SARS-CoV-2 RNA (RT-PCR) Imaging Radiologist's Impressions: Impressions Chest X-Ray 10/21/24 17:39 IMPRESSION: Unremarkable examination. Electronically signed by: Homero Trinidad MD 10/21/2024 06:30 PM EST RP Chest CTA 10/21/24 19:13 IMPRESSION: 1. No evidence of pulmonary emboli. 2. Moderate emphysema. 3. Geographic area of hypoattenuation adjacent to the falciform ligament in the right lobe of the liver probably representing focal fat. Ultrasound is recommended to exclude a mass. VTE: negative. Fleischner guidelines were followed. Electronically signed by: Justin Stone MD 10/21/2024 09:30 PM EST RP Abdomen Ultrasound 10/21/24 21:59 IMPRESSION: 1. Focal fatty infiltration of liver corresponding to the area of decreased attenuation on CT. 2. Question subtle fluid within the gallbladder wall, but no definite gallbladder wall thickening. No gallstones. Suspect normal variation. 3. Nonobstructing right renal stone. Electronically signed by: Baron Martinez MD 10/21/2024 11:03 PM [facility] Assessment and Plan (1) Acute asthma exacerbation: Qualifiers: Asthma severity: unspecified severity Asthma persistence: unspecified Qualified Code(s): J45.901 - Unspecified asthma with (acute) exacerbation Status: Acute (2) Polysubstance abuse: Status: Acute Plan Jagruti Alexis is a 34 y/o woman admitted with: * Acute asthma exacerbation, no hypoxia. Persists with symptoms despite therapy. Admit to hospitalist service. Pulse oximetry. Supplemental O2 as needed to keep O2 sats > 90%. Continue bronchodilator therapy and IV steroids. * Leukocytosis, likely secondary to Solu-Medrol. Doubt active infection. Continue to monitor. Blood cultures obtained -will follow results. * Polysubstance abuse. Continue Suboxone. Additional medicine consult. * Anxiety. Continue trazodone and hydroxyzine. Patient will need hospitalization for at least 2 midnights for acute asthma exacerbation treatment with bronchodilator therapy and IV steroids. Quality Stroke Does the patient have a stroke diagnosis?: No VTE Prior VTE?: No VTE Risk Level:: Medical - moderate - high VTE Device Contraindication: Treatment Not Indicated VTE Drug Contraindication: Treatment Not Indicated
[2024-10-22 01:12] LABS: VBG Base Excess -0.5 mmol/L; VBG HCO3 23 mmol/L (22-26); VBG pCO2 38 mmHg; VBG pO2 188 mmHg
[2024-10-22] MEDS: Buprenorphine/Naloxone 8/2 mg FILM 1 FILM SUBLINGUAL ×2 (01:48→13:03)
--- NOTE | 2024-10-22 01:52 | PC.NURSE ---
PT difficult to arouse. Fall asleeing quickly dropping meds. Held trazdone and hydroxyzine
[2024-10-22 05:43] LABS: Basophils Percent Auto 0.2 % (0-2); Hematocrit 41.8 % (37.0-47.0); Hemoglobin 13.3 g/dl (12.0-16.0); Imm Gran Abs Auto 0.03 X10*3/uL (0.00-0.03); Imm Gran Pct Auto 0.3 % (0.0-0.4); Lymphocytes Percent Auto 10.8 % (20-40); MANUAL DIFF FLAG NO; Mean Corpuscular HGB Conc 31.8 g/dl (31.0-35.0); Mean Corpuscular Volume 78.7 fL (80.0-98.0); Mean Platelet Volume 10.8 fL (9.4-12.3); Monocytes Absolute Auto 0.7 X10*3/uL (0.1-1.2); Monocytes Percent Auto 7.2 % (2-11); Neutrophils Absolute Auto 7.4 x10*3/uL (2.0-8.3); Neutrophils Percent Auto 81.5 % (45-73); Platelet Count 264 X10*3/uL (160-400); Red Blood Count 5.31 X10*6/uL (4.20-5.50); Red Cell Distribution Width 13.1 % (11.0-16.0); White Blood Count 9.1 X10*3/uL (4.8-10.8)
[2024-10-22 06:05] LABS: Anion Gap 13 (12-20); Blood Urea Nitrogen 6 mg/dL (9-16); Calcium 9.2 mg/dL (8.4-10.2); Carbon Dioxide 24 mmol/L (22-29); Chloride 108 mmol/L (96-108); Creatinine Clr Calc Pharmacy 80.2; Estimated Glomerular Filt Rate > 60; Glucose Random 108 mg/dL (60-115); Magnesium 2.5 mg/dL (1.6-2.6); Potassium 4.3 mmol/L (3.3-5.1); Sodium 141 mmol/L (135-145)
[2024-10-22] MEDS: 0.9 % Sodium Chloride Flush 3 ML SYRINGE IVFLUSH ×3 (08:13→20:24)
[2024-10-22] MEDS: predniSONE 20 MG TABLET 40 MG PO (08:42)
--- NOTE | 2024-10-22 08:55 | PHA.MEDREC ---
Addendum entered by Marleen Cintron [facility] 10/22/24 10:46: reviewed Original Note: Pharmacy Consult ? Medication Reconciliation Pharmacy has completed the medication reconciliation. Spoke to pt to confirm meds.
[2024-10-22] MEDS: hydrOXYzine HCL 25 MG TABLET PO ×2 (10:45→20:23)
[2024-10-22] MEDS: Omeprazole 20 MG CAPSULE.DR PO ×2 (10:45→16:34)
[2024-10-22] MEDS: Aspirin Enteric Coated 81 MG TABLET.DR PO (10:45)
[2024-10-22] MEDS: cloNIDine HCL 0.1 MG TABLET PO ×2 (10:46→20:23)
--- NOTE | 2024-10-22 11:57 | MHC.RECOVRN ---
Addendum entered by Yue Sepulveda RN 10/22/24 12:09: T/W provided pt with harm reduction tools and education. Addendum entered by Yue Sepulveda RN 10/22/24 12:02: Pt's hope is to return to inpt treatment for [facility] once D/C from hospital and work towards getting to be with her children again. Original Note: T/W met with pt. as requested for h/o polysubstance use and on suboxone. [employer] accessed and suboxone dosing obtained. Pt is having periods of increased sedation t/o day per staff and also slightly manic at times. She openly admits that she is detoxing from crack cocaine which could explain these sx. T/W spoke with pt. and she reports that she feels adequately managed re: OUD, at this time, on 8-2mg QD of suboxone (previous script was for 16mg BID). Discussion with provider and the plan is to continue 8mg QD effective now and to re assess tomorrow for W/D and need to titrate up to 16mg as tolerated. Report was given to floor nurse along with ACS team including Cici Bergeron NP. T/W will F/U tomorrow if pt. still admitted and available PRN.
--- NOTE | 2024-10-22 12:30 | HO.PM.IMPN ---
Subjective Subjective Date of Service: 10/22/24 Interval History: asthma execerebation Review of Systems sob seems similar -sob with minimum excersion no fever has cough anxious Review of Systems: Yes unobtainable due to endotracheal tube Physical Exam Vital Signs: Vital Signs: Last Vital Signs Temp 99.0 F 10/22/24 08:00 Pulse 86 10/22/24 11:07 Resp 18 10/22/24 11:07 BP 124/68 10/22/24 10:46 Pulse Ox 97 10/22/24 08:00 O2 Del Method Nasal Cannula 10/22/24 08:00 O2 Flow Rate 2 10/22/24 08:00 BMI result Body Mass Index 18.9 Objective Data Active Medications Acetaminophen (Acetaminophen 325 Mg Tablet) 975 mg PO Q6H PRN PRN Reason: Pain, Mild (Pain Scale 1-3), fever or headache Albuterol Sulfate (Albuterol Sulfate (0.083%) 2.5 Mg/3 Ml Vial.Neb) 2.5 mg INHALE Q2H PRN PRN Reason: Shortness of Breath/Wheezing Albuterol/Ipratropium (Albuterol/Iprat 2.5/0.5mg 3 Ml Ampul.Neb) 3 ml INHALE RQ4H WHILE AWAKE [facility] Last Admin: 10/22/24 11:07 Dose: 3 ml Documented By: MAR Aspirin (Aspirin Enteric Coated 81 Mg Tablet.) 81 mg PO DAILY [facility] Last Admin: 10/22/24 10:45 Dose: 81 mg Documented By: KEVIN Buprenorphine/Naloxone (Buprenorphine/Naloxone 8/2 Mg Film) 1 film SUBLINGUAL DAILY [facility] Clonidine HCl (Clonidine Hcl 0.1 Mg Tablet) 0.1 mg PO TID [facility]; Protocol Last Admin: 10/22/24 10:46 Dose: 0.1 mg Documented By: KEVIN Hydroxyzine HCl (Hydroxyzine Hcl 25 Mg Tablet) 25 mg PO TID [facility] Last Admin: 10/22/24 10:45 Dose: 25 mg Documented By: KEVIN Lorazepam (Lorazepam 2 Mg/Ml Vial) 0.5 mg IVPUSH BID PRN PRN Reason: anxiety Melatonin (Melatonin 3 Mg Tablet) 3 mg PO BEDTIME [facility] Omeprazole (Omeprazole 20 Mg Capsule.) 20 mg PO BID@0630,1630 [facility] Last Admin: 10/22/24 10:45 Dose: 20 mg Documented By: KEVIN Prednisone (Prednisone 20 Mg Tablet) 40 mg PO DAILY [facility] Stop: 10/26/24 09:01 Last Admin: 10/22/24 08:42 Dose: 40 mg Documented By: KEVIN Quetiapine Fumarate (Quetiapine Fumarate 25 Mg Tablet) 25 mg PO BEDTIME [facility] Ropinirole HCl (Ropinirole Hcl 0.25 Mg Tablet) 0.25 mg PO BEDTIME [facility] Sodium Chloride (0.9 % Sodium Chloride Flush 3 Ml Syringe) 3 ml IVFLUSH QSHIFT [facility] Last Admin: 10/22/24 08:13 Dose: 3 ml Documented By: ANNE MARIE Trazodone HCl (Trazodone Hcl 50 Mg Tablet) 50 mg PO BEDTIME [facility] Labs 10/22/24 05:31 10/22/24 05:31 Labs: Laboratory Results - last 24 hr 10/21/24 10/21/24 10/21/24 18:17 18:18 19:32 MCV 77.6 L MCH 25.0 L MCHC 32.2 RDW 13.1 Plt Count TNP MPV TNP Immature Gran % (Auto) 0.3 Neut % (Auto) 86.9 H Lymph % (Auto) 6.5 L [place] % (Auto) 4.1 Eos % (Auto) 1.9 Baso % (Auto) 0.3 Lymph # (Auto) 1.0 L [place] # (Auto) 0.7 Eos # (Auto) 0.3 Baso # (Auto) 0.1 Abs Immat Gran (auto) 0.05 H Absolute Neuts (auto) 13.8 H Absolute Nucleated RBC 0.000 Nucleated RBC % (auto) 0.0 Smear Tech's Comments VERIFIED ESR 3 PT 12.7 H INR 1.1 VBG pH VBG pCO2 VBG pO2 VBG HCO3 VBG O2 Saturation VBG Base Excess Anion Gap 17 Estim Creat Clear Calc 85.2 Estimated GFR > 60 Random Glucose 125 H Lactic Acid 1.8 Calcium 9.0 Magnesium 3.0 H Total Bilirubin 0.3 Direct Bilirubin AST 29 ALT 24 Alkaline Phosphatase 89 Troponin I High Sens < 2.7 C-Reactive Protein 0.58 H B-Natriuretic Peptide 113 H Total Protein 7.4 Albumin 4.4 Lipase 10 Beta HCG, Quant < 2 Urine Color Yellow Urine Appearance Clear Urine pH 7.0 Ur Specific [place] <= 1.005 Urine Protein Negative Urine Glucose (UA) 500 H Urine Ketones Negative Urine Blood Trace H Urine Nitrite Negative Ur Leukocyte Esterase Trace H Urine RBC 0-2 Urine WBC 0-5 Ur Squamous Epith Cells 0-2 Urine Bacteria None Seen Hyaline Casts 0-2 Urine Opiates Screen Not Detected Ur Buprenorphine Scrn Positive H Ur Oxycodone Screen Not Detected Urine Methadone Screen Not Detected Urine Fentanyl Screen Not Detected Ur Barbiturates Screen Not Detected Ur Phencyclidine Scrn Not Detected Ur Amphetamines Screen Not Detected U Benzodiazepines Scrn Not Detected Urine Cocaine Screen POSITIVE H U Marijuana (THC) Screen Not Detected Influenza Type A (PCR) NEGATIVE Influenza Type B (PCR) NEGATIVE RSV RNA Qual (PCR) NEGATIVE SARS-CoV-2 RNA (RT-PCR) NEGATIVE 10/21/24 10/22/24 10/22/24 20:55 01:08 05:31 MCV 78.7 L MCH 25.0 L MCHC 31.8 RDW 13.1 Plt Count 264 MPV 10.8 Immature Gran % (Auto) 0.3 Neut % (Auto) 81.5 H Lymph % (Auto) 10.8 L [place] % (Auto) 7.2 Eos % (Auto) 0.0 Baso % (Auto) 0.2 Lymph # (Auto) 1.0 L [place] # (Auto) 0.7 Eos # (Auto) 0.0 Baso # (Auto) 0.0 Abs Immat Gran (auto) 0.03 Absolute Neuts (auto) 7.4 Absolute Nucleated RBC 0.000 Nucleated RBC % (auto) 0.0 Smear Tech's Comments ESR PT INR VBG pH 7.40 VBG pCO2 38 VBG pO2 188 VBG HCO3 23 VBG O2 Saturation 99.0 VBG Base Excess -0.5 Anion Gap 13 Estim Creat Clear Calc 80.2 Estimated GFR > 60 Random Glucose 108 Lactic Acid Calcium 9.2 Magnesium 2.5 Total Bilirubin 0.2 Direct Bilirubin < 0.2 AST 26 ALT 24 Alkaline Phosphatase 84 Troponin I High Sens < 2.7 C-Reactive Protein B-Natriuretic Peptide Total Protein 6.8 Albumin 4.1 Lipase Beta HCG, Quant Urine Color Urine Appearance Urine pH Ur Specific [place] Urine Protein Urine Glucose (UA) Urine Ketones Urine Blood Urine Nitrite Ur Leukocyte Esterase Urine RBC Urine WBC Ur Squamous Epith Cells Urine Bacteria Hyaline Casts Urine Opiates Screen Ur Buprenorphine Scrn Ur Oxycodone Screen Urine Methadone Screen Urine Fentanyl Screen Ur Barbiturates Screen Ur Phencyclidine Scrn Ur Amphetamines Screen U Benzodiazepines Scrn Urine Cocaine Screen U Marijuana (THC) Screen Influenza Type A (PCR) Influenza Type B (PCR) RSV RNA Qual (PCR) SARS-CoV-2 RNA (RT-PCR) Quality Stroke Does the patient have a stroke diagnosis?: No VTE Prior VTE?: No VTE Risk Level:: Medical - moderate - high VTE Device Contraindication: Treatment Not Indicated VTE Drug Contraindication: Treatment Not Indicated
--- NOTE | 2024-10-22 12:43 | PM.EVENT ---
Event Note Date of Service: 10/22/24 Event Note: patient has asthma execerebation sob seems similar with minimal excersion physical exam and assessment and plan coodianted in h&P note. continue asthma management. drug use : started subaxone addiction consult. Time Spent With Patient Time: Total time managing care of this patient today ____ minutes.
--- NOTE | 2024-10-22 14:03 | MHC.CM.PN ---
PT REPORTS SHE [place]AYING [place] [facility] [facility] SHE SAYS SHE WAS RECENTLY AT [facility] AND WOULD LIKE TO RETURN SHE HAS NO PCP AND NO HCP, SHE DECLINES ASSISTANCE WITH EITHER SHE SAYS SHE IS SUPPOSED TO HAVE A PROAIR INHALER BUT HAS NOT BEEN ABLE TO GET IT DCP TBD PENDING RECOVERY TEAM CONSULT
[2024-10-22] MEDS: traZODone HCL 50 MG TABLET PO (20:23)
[2024-10-22] MEDS: Melatonin 3 MG TABLET PO (20:23)
[2024-10-22] MEDS: QUEtiapine Fumarate 25 MG TABLET PO (20:23)
[2024-10-23] VITALS (10 sets, daily range): BP systolic 96–127; BP diastolic 50–74; PULSE 56–94; RESP 15–18; TEMP 36.1–37; O2SAT 94–99
[2024-10-23] MEDS: Omeprazole 20 MG CAPSULE.DR PO ×2 (05:51→17:41)
[2024-10-23] MEDS: Aspirin Enteric Coated 81 MG TABLET.DR PO (07:54)
[2024-10-23] MEDS: cloNIDine HCL 0.1 MG TABLET PO ×3 (07:54→21:09)
[2024-10-23] MEDS: predniSONE 20 MG TABLET 40 MG PO (07:54)
[2024-10-23] MEDS: hydrOXYzine HCL 25 MG TABLET PO ×3 (07:54→21:05)
[2024-10-23] MEDS: Buprenorphine/Naloxone 8/2 mg FILM 1 FILM SUBLINGUAL (07:55)
[2024-10-23] MEDS: 0.9 % Sodium Chloride Flush 3 ML SYRINGE IVFLUSH ×3 (07:57→21:10)
[2024-10-23] MEDS: Albuterol/Iprat 2.5/0.5MG 3 ML AMPUL.NEB INHALE ×4 (08:14→19:47)
--- NOTE | 2024-10-23 10:07 | MHC.RECOVRN ---
Met with pt in 344 to follow up and provide support.? Pt resting but easily awokn, alert, easily engages in conversation. Pt appears well managed re OUD on current 8-2 mg of suboxone. COWS this AM was a 4 and no W/D reported or observed during visit. Pt would like to go to [facility] for inpt. treatment following D/C from [place] T/W called and spoke with Esther at [facility]. Referral packet sent and receipt confirmed at 10:00AM. Report given to floor nurse Sylvia along with IGOR Garcia. ? Pt denies other concerns at this time.? T/w available as needed.
[2024-10-23 12:18] LABS: D Dimer High Sensitivity < 150 NG/ML
--- NOTE | 2024-10-23 12:36 | HO.PM.IMPN ---
Subjective Subjective Date of Service: 10/23/24 Interval History: asthma excerebation Review of Systems sob seems improved. no chest pain Physical Exam Vital Signs: Vital Signs: Last Vital Signs Temp 98.6 F 10/23/24 07:37 Pulse 78 10/23/24 12:28 Resp 17 10/23/24 12:28 BP 96/50 L 10/23/24 07:37 Pulse Ox 94 10/23/24 07:37 O2 Del Method Room Air 10/23/24 07:37 O2 Flow Rate 2 10/22/24 20:00 BMI result Body Mass Index 18.9 Appearance: Alert.? Oriented X3. cvs: rrr, [id number] , no murmur res: air entry improving , few scattered rhonchii abd: no rebound or guarding ,nt, bs present. ext pulses present , no cyanosis . neuro: axo3 , nonfocal. Objective Data Active Medications Acetaminophen (Acetaminophen 325 Mg Tablet) 975 mg PO Q6H PRN PRN Reason: Pain, Mild (Pain Scale 1-3), fever or headache Albuterol Sulfate (Albuterol Sulfate (0.083%) 2.5 Mg/3 Ml Vial.Neb) 2.5 mg INHALE Q2H PRN PRN Reason: Shortness of Breath/Wheezing Albuterol/Ipratropium (Albuterol/Iprat 2.5/0.5mg 3 Ml Ampul.Neb) 3 ml INHALE RQ4H WHILE AWAKE [facility] Last Admin: 10/23/24 12:28 Dose: 3 ml Documented By: AMARILIS Aspirin (Aspirin Enteric Coated 81 Mg Tablet.) 81 mg PO DAILY [facility] Last Admin: 10/23/24 07:54 Dose: 81 mg Documented By: CARRIE Buprenorphine/Naloxone (Buprenorphine/Naloxone 8/2 Mg Film) 1 film SUBLINGUAL DAILY [facility] Last Admin: 10/23/24 07:55 Dose: 1 film Documented By: CARRIE Clonidine HCl (Clonidine Hcl 0.1 Mg Tablet) 0.1 mg PO TID [facility]; Protocol Last Admin: 10/23/24 07:54 Dose: 0.1 mg Documented By: CARRIE Hydroxyzine HCl (Hydroxyzine Hcl 25 Mg Tablet) 25 mg PO TID [facility] Last Admin: 10/23/24 07:54 Dose: 25 mg Documented By: CARRIE Lorazepam (Lorazepam 2 Mg/Ml Vial) 0.5 mg IVPUSH BID PRN PRN Reason: anxiety Melatonin (Melatonin 3 Mg Tablet) 3 mg PO BEDTIME [facility] Last Admin: 10/22/24 20:23 Dose: 3 mg Documented By: VERA Naloxone HCl (Naloxone Hcl 0.4 Mg/Ml Vial) 0.04 mg IVPUSH Q5M PRN PRN Reason: Respiratory Rate < 10 Omeprazole (Omeprazole 20 Mg Capsule.Dr) 20 mg PO BID@0630,1630 [facility] Last Admin: 10/23/24 05:51 Dose: 20 mg Documented By: VERA Prednisone (Prednisone 20 Mg Tablet) 40 mg PO DAILY [facility] Stop: 10/26/24 09:01 Last Admin: 10/23/24 07:54 Dose: 40 mg Documented By: CARRIE Quetiapine Fumarate (Quetiapine Fumarate 25 Mg Tablet) 25 mg PO BEDTIME [facility] Last Admin: 10/22/24 20:23 Dose: 25 mg Documented By: VERA Ropinirole HCl (Ropinirole Hcl 0.25 Mg Tablet) 0.25 mg PO BEDTIME [facility] Last Admin: 10/22/24 21:30 Dose: Not Given Documented By: VERA Non-Admin Reason: Patient Refused Sodium Chloride (0.9 % Sodium Chloride Flush 3 Ml Syringe) 3 ml IVFLUSH QSHIFT [facility] Last Admin: 10/23/24 07:57 Dose: 3 ml Documented By: CARRIE Trazodone HCl (Trazodone Hcl 50 Mg Tablet) 50 mg PO BEDTIME [facility] Last Admin: 10/22/24 20:23 Dose: 50 mg Documented By: VERA Labs 10/22/24 05:31 10/22/24 05:31 Labs: Laboratory Results - last 24 hr 10/23/24 12:00 D-Dimer High Sensitivty < 150 Microbiology Microbiology Results: Microbiology 10/21/24 18:17 Blood Culture - Preliminary Blood - Venous No growth after 24 hours. 10/21/24 18:05 Blood Culture - Preliminary Blood - Venous No growth after 24 hours. Assessment and Plan (1) Polysubstance abuse: Status: Acute (2) Acute asthma exacerbation: Status: Acute Assessment and Plan: 34 y/o woman admitted with: Acute asthma exacerbation(mild intermitent asthma ), no hypoxia. seem improving Pulse oximetry. Supplemental O2 as needed to keep O2 sats > 90%. Continue bronchodilator therapy and IV steroids. Leukocytosis, likely reactive to steriods ,Doubt active infection. leucocytosis resolved. Continue to monitor. Blood cultures negative @24hrs. Abnormal ekg: has t wave invesion in anterior leads tropsx2 negative no chest pain added ddimer and echo. Polysubstance abuse. Continue Suboxone. Additional medicine consult noted. Anxiety. Continue trazodone and hydroxyzine. ongoing need for hospitlisation- acute asthma exacerbation treatment and abnormal ekg -need further cardiac workup. Quality Stroke Does the patient have a stroke diagnosis?: No VTE Prior VTE?: No VTE Risk Level:: Medical - moderate - high VTE Device Contraindication: Treatment Not Indicated VTE Drug Contraindication: Treatment Not Indicated
--- NOTE | 2024-10-23 12:49 | MHC.RECOVRN ---
Received call back from [facility] for pt intake. Pt was on phone with intake when we were informed she is not D/C from hospital today. Will need to call [facility] in AM for intake. CM and ACS team updated.
[2024-10-23] MEDS: LORazepam 2 MG/ML VIAL 0.5 MG IVPUSH (17:37)
[2024-10-23] MEDS: Acetaminophen 325 MG TABLET 975 MG PO (20:02)
[2024-10-23] MEDS: Melatonin 3 MG TABLET PO (21:06)
[2024-10-23] MEDS: traZODone HCL 50 MG TABLET PO (21:06)
[2024-10-23] MEDS: QUEtiapine Fumarate 25 MG TABLET PO (21:06)
[2024-10-23] MEDS: rOPINIRole HCL 0.25 MG TABLET PO (21:06)
[2024-10-24 04:00] VITALS: BP 92/43; PULSE 73; RESP 15; TEMP 36.2; O2SAT 96
[2024-10-24] MEDS: Omeprazole 20 MG CAPSULE.DR PO ×2 (05:45→16:28)
[2024-10-24 05:48] VITALS: BP 92/51
--- NOTE | 2024-10-24 07:00 | CA_ITS ---
Transthoracic Echocardiogram Patient (Last, First, Middle): Jagruti Alexis, Gender: Female Date of : 1990 Age: 34 Procedure Date: 10/24/2024 Procedure Type: Transthoracic Echocardiogram Location: S3E Height: 154.94 cm Weight: 45.36 kg BSA: 1.41 m2 Heart Rate: 72 bpm BP: 92 / 51 mmHg Stamp Collector: SB Referring MD: Pablito Montelongo MD Symptoms: Asymmetrical T-wave inversion in the anterior lead Study Quality: Adequate ECG Rhythm: Sinus Conclusions: - The left ventricular systolic function is normal. The calculated ejection fraction is 55% by biplane method. - No obvious valvular pathology seen on this study. Findings Left Ventricle Normal left ventricular cavity size. There is normal left ventricular wall thickness. The left ventricular systolic function is normal. The calculated ejection fraction is 55% by biplane method. There is no evidence of regional wall motion abnormalities. Diastolic function is normal for age. Right Ventricle Normal right ventricular cavity size and systolic function. Atria Both atria are normal in size. Aortic Valve There is a normal trileaflet aortic valve. There is no aortic valve stenosis. There is no aortic valve regurgitation. Mitral Valve The mitral valve appears normal. There is trace mitral valve regurgitation. There is no mitral valve stenosis. Pulmonic Valve The pulmonic valve is likely normal. Tricuspid Valve Normal tricuspid valve structure. There is trace tricuspid valve regurgitation. There is no evidence of pulmonary hypertension. Great Vessels The asc aorta is normal in size. Venous The inferior vena cava is normal in size and collapses greater than 50% with inspiration. Pericardium/Pleural There is no evidence of pericardial effusion. Prior Study Comparison No prior study available for comparison. Recommendations, Care & Conclusions No obvious valvular pathology seen on this study. Measurements 2D Linear Measurements IVSd: 0.64 0.6-0.9/0.6-1.0 cm LVIDd: 4.51 3.9-5.3/4.2-5.9 cm LVIDd Index: 3.20 2.4-3.2/2.2-3.1 cm/m2 LVIDs: 3.35 2.0-3.6 cm LVPWd: 0.47 0.7-1.1 cm LA Diam: 3.40 2.7-3.8/3.0-4.0 cm LAIDs Index: 2.41 1.5-2.3 cm/m2 LV Mass: 89.30 67-162/88-224 g LV Mass Index: 63.33 43-95/49-115 g/m2 LVOT Diam: 1.90 3.0+(-)1.3 cm 2D Systolic Function EF 4C: 52.70 >55% EF 2C: 60.10 >55% EF BiP: 55.40 >55% Mitral Valve MV Pk E: 1.05 MV PK A: 0.29 MV Decel Time: 226.00 E/A: 3.70 E'Lateral: 16.00 E'Medial: 11.00 E/E' Med: 9.50 E/E' Lat: 6.60 PHT: 66.00 MVA PHT: 3.33 Decel [place]: 4.65 Aortic Valve AoV Pk Leroy: 1.32 AoV Pk Grad: 7.00 LISA: 2.57 LVOT LVOT Pk Leroy: 1.10 LVOT Mn Leroy: 0.72 LVOT VTI: 0.21 LVOT Pk Grad: 5.00 LVOT Mn Grad: 3.00 LVOT Diam: 1.90 LVOT Area: 2.84 Diastolic Function MV Pk E: 1.05 MV Pk A: 0.29 E/A: 3.70 E'Medial: 11.00 E/E' Med: 9.50 E' Laterial: 16.00 E/E' Lat: 6.60 Right Ventricle TAPSE (mm): 24.60 TVS' Leroy: 12.80 Tricuspid Valve RA Press: 3.00 Great Vessels Aorta Sinus of Valsalva: 2.50 2.0-3.5 cm Ao Asc: 2.40 2.1-3.4 cm Pulmonary Veins Pulm Vein S/D 0.70 Pulmonary Valve PV Pk Leroy: 0.87 Peak PV Grad: 3.00 Updated in Other Vendor System with Status of Final Wade Peters MD electronically signed on 10/24/2024 9:57:57 AM with status of Final
[2024-10-24 07:39] VITALS: BP 102/51; PULSE 73; RESP 18; TEMP 36.8; O2SAT 98
[2024-10-24] MEDS: 0.9 % Sodium Chloride Flush 3 ML SYRINGE IVFLUSH (08:55)
[2024-10-24] MEDS: Aspirin Enteric Coated 81 MG TABLET.DR PO (08:55)
[2024-10-24] MEDS: Buprenorphine/Naloxone 8/2 mg FILM 1 FILM SUBLINGUAL (08:55)
[2024-10-24] MEDS: cloNIDine HCL 0.1 MG TABLET PO ×2 (08:55→13:54)
[2024-10-24] MEDS: hydrOXYzine HCL 25 MG TABLET PO ×2 (08:55→13:55)
[2024-10-24] MEDS: predniSONE 20 MG TABLET 40 MG PO (08:55)
--- NOTE | 2024-10-24 10:42 | P.DS_ITS ---
DS: Providers Provider Date of Service: 10/24/24 Date of admission: 10/22/24 01:06 Date of discharge: 10/24/24 Primary care physician: None Physician Consults: 10/22/24 01:33 Addiction Medicine Routine Consulting Provider: Addiction Covering Reason for consultation: Polysubstance abuse Has provider been notified: No Attending physician on discharge: Dorie Goode Discharging clinician: Dorie Goode DS: Diagnosis Discharge Diagnosis (1) Polysubstance abuse: Status: Acute (2) Acute asthma exacerbation: Status: Acute DS: Summary Hospital Course Hospital Course: HPI:34 years old woman with past medical history significant for asthma and polysubstance abuse was brought to the emergency department via EMS due to worsening shortness on breath over the last 2 days associated with wheezing and productive cough. Did not report fever or chills. Did not report any headache, palpitations or weakness. Patient did not report any acute gastrointestinal genitourinaror y symptoms. She snorts cocaine and uses Suboxone. Denied tobacco smoking. She stated that she does not use rescue inhalers and mentioned that she ran out of her home medications including Klonopin, hydroxyzine and trazodone. In the ED, she was initially found to have tachypnea. Her oxygen saturation o nly dropped to 89% on room air. On my evaluation nasal cannula was removed and the patient kept adequate O2 sats. Blood workup showed leukocytosis of 15.9 (EMS gave her solumedrol IV). Hemoglobin is normal. There are no electrolyte imbalances. Renal function and LFTs are normal. Troponin is negative x2. BNP is 113. Venous blood gas showed no respiratory acidosis. test is negative. Toxicology is positive for buprenorphine and cocaine. COVID-19, influenza and RSV is negative. CXR is negative. Chest CTA showed no PE, however showed moderate emphysema and right lobe of the liver abnormality. Abdominal ultrasound showed focal fatty infiltration of the liver. ECG showed asymmetrical T-wave inversions in the anterior leads, QTC is 484 ms. ED tx: Ceftriaxone 1 g IV, doxycycline 100 mg IV, albuterol nebs, NS 1 L bolus, Ativan 1 g IV. Hospital course: Acute asthma exacerbation(mild intermitent asthma ), no hypoxia: Started on nebs, steroids, has leukocytosis ,cta negative for pulm embolism , patient started on nebs ,steriods -sobseems improved signifcantly , blood cultures neg@48hrs . patient will be going with prednisone 40 mg dailyx1 days. incidental finding-hypoattenuation adjacent to the falciform ligament in the right lobe of the liver probably representing focal fat. abd us :Focal fatty infiltration of liver corresponding to the area of decreased attenuation on CT.Lft's normal. further management outpatient. ekg abnormal-patient asymptomatic , ekg changes seems similar to her 2020 ekg, but slightly more prominent. echo seems fine . follow up outpatient and seen by cardiology recomended outpatient coronary Cta .consider outpatient cardiology eval. patient was strongly advised to abtain from drug use. plan: continue prednisone 40 mg dailyx1 days. incidental finding-hypoattenuation adjacent to the falciform ligament in the right lobe of the liver probably representing focal fat. abd us :Focal fatty infiltration of liver corresponding to the area of decreased attenuation on CT.Lft's normal. further management outpatient. ekg abnormal-patient asymptomatic , ekg changes seems similar to her 2020 ekg, but slightly more prominent. echo seems fine . follow up outpatient and seen by cardiology recomended outpatient coronary Cta .consider outpatient cardiology eval. Above management discussed with the patient detail length she understand in agreement, time spent 40 minute. Time Attestation Total time managing care of this patient today: 40 mintues. Discharge Coordination Time (in mins): 40 min Quality: Safe Use of Opioids Does Pt have an Active Cancer Diagnosis on the Problem List?: No Quality: Stroke Does the patient have a stroke diagnosis?: No Physical Exam Vital Signs: Vital Signs: Last Vital Signs Temp 98.2 F 10/24/24 07:39 Pulse 73 10/24/24 07:39 Resp 18 10/24/24 07:39 BP 102/51 L 10/24/24 07:39 Pulse Ox 98 10/24/24 07:39 O2 Del Method Room Air 10/24/24 07:39 O2 Flow Rate 2 10/22/24 20:00 BMI result Body Mass Index 18.9 Appearance: Alert.? Oriented X3. cvs: rrr, [id number] , no murmur res: air entry fair , no rales or wheezing abd: no rebound or guarding ,nt, bs present. ext pulses present , no cyanosis . neuro: axo3 , nonfocal. DS: Data Data Completed and Pending Labs on day of discharge: Laboratory Results - last 24 hr 10/23/24 12:00 D-Dimer High Sensitivty < 150 Preliminary micro results at discharge 10/21/24 18:17 Blood Culture - Preliminary Blood - Venous No growth after 48 hours. 10/21/24 18:05 Blood Culture - Preliminary Blood - Venous No growth after 48 hours. Imaging Chest x-ray: Radiologist's impression: ITS Impressions Chest X-Ray 10/21/24 17:39 IMPRESSION: Unremarkable examination. Electronically signed by: Homero Trinidad MD 10/21/2024 06:30 PM EST RP Chest CTA 10/21/24 19:13 IMPRESSION: 1. No evidence of pulmonary emboli. 2. Moderate emphysema. 3. Geographic area of hypoattenuation adjacent to the falciform ligament in the right lobe of the liver probably representing focal fat. Ultrasound is recommended to exclude a mass. VTE: negative. Fleischner guidelines were followed. Electronically signed by: Justin Stone MD 10/21/2024 09:30 PM EST RP Abdomen Ultrasound 10/21/24 21:59 IMPRESSION: 1. Focal fatty infiltration of liver corresponding to the area of decreased attenuation on CT. 2. Question subtle fluid within the gallbladder wall, but no definite gallbladder wall thickening. No gallstones. Suspect normal variation. 3. Nonobstructing right renal stone. Electronically signed by: Baron Martinez MD 10/21/2024 11:03 PM EST RP Discharge Plan Discharge Anticipated Discharge Date/Time: 10/23/24 11:34 Patient Disposition: Home, Self-Care Discharge Diagnosis: acute asthma excerebation (mild intermittent) Referrals: [facility] [Other] - 1 Week Physician,None [Primary Care Provider] - 1 Week Discharge Medications: New prednisone 20 mg Tablet 40 mg PO DAILY Qty: 2 0RF omeprazole 20 mg Capsule,Delayed Release(Dr/Ec) 20 mg PO DAILY Qty: 30 0RF Continued quetiapine 25 mg tablet 25 mg PO BEDTIME clonidine HCl 0.1 mg tablet 0.1 mg PO TID trazodone 50 mg tablet 50 mg PO BEDTIME melatonin 3 mg tablet 3 mg PO BEDTIME ropinirole 0.25 mg tablet 0.25 mg PO BEDTIME hydroxyzine pamoate 25 mg capsule 25 mg PO TID buprenorphine-naloxone [Suboxone] 8-2 mg film 1 film sublingual BID Discharge Orders: Discharge Order (Routine); Ordered 10/24/24 Ordered By: Dorie Goode Diet: Advance to usual diet Activity on Discharge: As tolerated Stand Alone Forms: Patient Portal Discharge page Print Language: Portuguese Care Plan Goals: Acute asthma exacerbation(mild intermitent asthma ), no hypoxia: Started on nebs, steroids, has leukocytosis ,cta negative for pulm embolism , patient started on nebs ,steriods -sobseems improved signifcantly , blood c ultures neg@48hrs . patient will be going with prednisone 40 mg dailyx1 days. incidental finding-hypoattenuation adjacent to the falciform ligament in the right lobe of the liver probably representing focal fat. abd us :Focal fatty infiltration of liver corresponding to the area of decreased attenuation on CT.Lft's normal. further management outpatient. ekg abnormal-patient asymptomatic , ekg changes seems similar to her 2020 ekg, but slightly more prominent. echo seems fine . follow up outpatient and seen by cardiology recomended outpatient coronary Cta . patient was strongly advised to abtain from drug use. Health Concerns: as above. Plan of Treatment: as above. Assessment: as above. Patient Instructions: Asthma (DC), Cocaine Abuse (DC)
--- NOTE | 2024-10-24 10:50 | MHC.RECOVSUP ---
Cigar Wrapper Tender Automatic Note Patient seen in [id number] Consult requested for?ATS referral? Current substance use reported by patient: Crack Cocaine & Opiates Currently on IRAIS or MOUD Yes: Suboxone Plan:? Patient referred to [facility] through Cory Jarvis. Sent via email and fax at 10:45 They will be calling Bethanie for a nurse to nurse at [phone]
--- NOTE | 2024-10-24 10:56 | MHC.CM.PN ---
pt [facility] making arrangments
[2024-10-24 11:26] VITALS: PULSE 73; RESP 18; O2SAT 98
[2024-10-24] MEDS: Albuterol/Iprat 2.5/0.5MG 3 ML AMPUL.NEB INHALE ×2 (11:26→15:14)
--- NOTE | 2024-10-24 11:28 | MHC.RECOVSUP ---
Waiter/Waitress Informal Note Draft of clearance ppwk I received from Cici Bergeron faxed to at [facility].
--- NOTE | 2024-10-24 11:50 | PM.CNCAR ---
History of Present Illness History of Present Illness Date of Service: 10/24/24 Chief complaint: Acute Asthma Exacerbation Narrative: This is a cardiology consultation regarding an abnormal EKG. Patient is admitted for asthma exacerbation. In this context, she had an EKG that showed anterior T inversions and hence we are consulted. Patient denies any prior cardiac history. She unfortunately smokes crack cocaine. Symptoms are cough and shortness of breath with wheezing. No anginal-type symptoms. Patient herself has no cardiac history but she states that there is a family history of cardiomyopathy. Apparently maternal uncles had heart transplant and there is cardiomyopathy history in that side of family. Currently, apart from some wheezing type symptoms, she states she feels fine. Review of Systems Review of Systems: Yes all other systems are reviewed and are negative Constitutional: Constitutional: Reports as per HPI and Reports no additional constitutional complaints Eyes: Eyes: Reports as per HPI and Denies no additional eye complaints ENT: Denies system reviewed and no additional complaints, except as documented and Reports as per HPI Cardiovascular: Cardiovascular: Reports as per HPI, Reports no additional cardiovascular complaints, Denies acrocyanosis, Denies cool extremities, Denies chest pain, Denies leg edema, Denies lightheadedness, Denies palpitations and Reports dyspnea Respiratory: Respiratory: Reports as per HPI, Denies no additional respiratory complaints, Reports cough, Reports dyspnea and Reports wheezing Gastrointestinal: Gastrointestinal: Reports as per HPI and Denies no additional gastrointestinal complaints Genitourinary: Genitourinary: Reports as per HPI Musculoskeletal: Musculoskeletal: Reports no additional musculoskeletal complaints and Reports as per HPI Integumentary/Breasts: Skin/Breast: Reports system reviewed and no additional complaints, except as docu Neurologic: Reports system reviewed and no additional complaints, except as documented and Reports as per HPI Psychiatric: Psychiatric: Reports no additional psychiatric complaints and Reports as per HPI Endocrine: Endocrine: Reports no additional endocrine complaints, Reports as per HPI and Denies palpitations Hematologic/Lymphatic: Hematologic/Lymphatic: Reports no additional hematologic/lymphatic complaints and Reports as per HPI Allergic/Immunologic: Allergic/Immunologic: Reports no additional allergic/immunologic complaints, Reports as per HPI and Reports wheezing PMFSH Family History Family History Maternal Uncle Cardiomyopathy Heart transplant recipient Social History Social History Household Members: None Housing: Homeless Do you presently have visiting nurse or other home services: No Alcohol intake: never Patient Tobacco Use Status: Never used Tobacco Substance Use Type: Crack/Cocaine and Heroin service: No Meds Allergies Allergy/AdvReac Type Severity Reaction Status Date / Time No Known Allergies Allergy Mild UNKNOWN Unverified 10/21/24 17:25 Active Medications: Current Medications Acetaminophen (Acetaminophen 325 Mg Tablet) 975 mg PO Q6H PRN PRN Reason: Pain, Mild (Pain Scale 1-3), fever or headache Last Admin: 10/23/24 20:02 Dose: 975 mg Albuterol Sulfate (Albuterol Sulfate (0.083%) 2.5 Mg/3 Ml Vial.Neb) 2.5 mg INHALE Q2H PRN PRN Reason: Shortness of Breath/Wheezing Albuterol/Ipratropium (Albuterol/Iprat 2.5/0.5mg 3 Ml Ampul.Neb) 3 ml INHALE RQ4H WHILE AWAKE [facility] Last Admin: 10/24/24 11:26 Dose: 3 ml Aspirin (Aspirin Enteric Coated 81 Mg Tablet.) 81 mg PO DAILY [facility] Last Admin: 10/24/24 08:55 Dose: 81 mg Buprenorphine/Naloxone (Buprenorphine/Naloxone 8/2 Mg Film) 1 film SUBLINGUAL DAILY [facility] Last Admin: 10/24/24 08:55 Dose: 1 film Clonidine HCl (Clonidine Hcl 0.1 Mg Tablet) 0.1 mg PO TID [facility]; Protocol Last Admin: 10/24/24 08:55 Dose: 0.1 mg Hydroxyzine HCl (Hydroxyzine Hcl 25 Mg Tablet) 25 mg PO TID [facility] Last Admin: 10/24/24 08:55 Dose: 25 mg Lorazepam (Lorazepam 2 Mg/Ml Vial) 0.5 mg IVPUSH BID PRN PRN Reason: anxiety Last Admin: 10/23/24 17:37 Dose: 0.5 mg Melatonin (Melatonin 3 Mg Tablet) 3 mg PO BEDTIME [facility] Last Admin: 10/23/24 21:06 Dose: 3 mg Naloxone HCl (Naloxone Hcl 0.4 Mg/Ml Vial) 0.04 mg IVPUSH Q5M PRN PRN Reason: Respiratory Rate < 10 Omeprazole (Omeprazole 20 Mg Capsule.) 20 mg PO BID@0630,1630 [facility] Last Admin: 10/24/24 05:45 Dose: 20 mg Prednisone (Prednisone 20 Mg Tablet) 40 mg PO DAILY [facility] Stop: 10/26/24 09:01 Last Admin: 10/24/24 08:55 Dose: 40 mg Quetiapine Fumarate (Quetiapine Fumarate 25 Mg Tablet) 25 mg PO BEDTIME [facility] Last Admin: 10/23/24 21:06 Dose: 25 mg Ropinirole HCl (Ropinirole Hcl 0.25 Mg Tablet) 0.25 mg PO BEDTIME [facility] Last Admin: 10/23/24 21:06 Dose: 0.25 mg Sodium Chloride (0.9 % Sodium Chloride Flush 3 Ml Syringe) 3 ml IVFLUSH QSHIFT [facility] Last Admin: 10/24/24 08:55 Dose: 3 ml Trazodone HCl (Trazodone Hcl 50 Mg Tablet) 50 mg PO BEDTIME [facility] Last Admin: 10/23/24 21:06 Dose: 50 mg Home Medications ?Medication ?Instructions ?Recorded ?Confirmed ?Last Taken ?Type buprenorphine 8 mg-naloxone 2 mg 1 film sublingual BID 10/22/24 10/22/24 10/21/24 History sublingual film (Suboxone) clonidine HCl 0.1 mg tablet 0.1 mg PO TID 10/22/24 10/22/24 2 Weeks Ago History ~10/08/24 hydroxyzine pamoate 25 mg capsule 25 mg PO TID 10/22/24 10/22/24 2 Weeks Ago History ~10/08/24 melatonin 3 mg tablet 3 mg PO BEDTIME 10/22/24 10/22/24 2 Weeks Ago History ~10/08/24 quetiapine 25 mg tablet 25 mg PO BEDTIME 10/22/24 10/22/24 2 Weeks Ago History ~10/08/24 ropinirole 0.25 mg tablet 0.25 mg PO BEDTIME 10/22/24 10/22/24 2 Weeks Ago History ~10/08/24 trazodone 50 mg tablet 50 mg PO BEDTIME 10/22/24 10/22/24 2 Weeks Ago History ~10/08/24 Physical Exam Vital Signs: Vital Signs: Last Vital Signs Temp 98.2 F 10/24/24 07:39 Pulse 73 10/24/24 11:26 Resp 18 10/24/24 11:26 BP 102/51 L 10/24/24 07:39 Pulse Ox 98 10/24/24 07:39 O2 Del Method Room Air 10/24/24 07:39 O2 Flow Rate 2 10/22/24 20:00 BMI result Body Mass Index 18.9 Const: General: comfortable and no acute distress Orientation/consciousness: patient oriented x3 HEENT: Other: Unremarkable Head: Yes normal to inspection Neck: Neck: Yes normal visual inspection Chest: Chest palpation & inspection: normal inspection of the chest Resp: Auscultation: wheezes and diminished lung sounds Cardio: Palpation: normal PMI Heart sounds: S1 normal heart sound present, S2 normal heart sound present, no gallops, no murmurs and no rubs GI: Palpation (GI): Soft to palpation Back/Spine/Pelvis: Other: unremarkable Skin: General skin exam: no rashes or lesions noted Neuro: General: patient oriented x3 Extrem: General: Yes normal to inspection Psych: Mental Status: mental status grossly normal Objective Labs and Meds 10/22/24 05:31 10/22/24 05:31 Lab results: Laboratory Results - last 24 hr 10/23/24 12:00 D-Dimer High Sensitivty < 150 ECG Interpretation: EKG reveals underlying sinus rhythm; 88/Min; anterior T inversions. Appears different compared to the last EKG from 2020. Assessment and Plan (1) Abnormal EKG: Status: Acute (2) Acute asthma exacerbation: Qualifiers: Asthma severity: unspecified severity Asthma persistence: unspecified Qualified Code(s): J45.901 - Unspecified asthma with (acute) exacerbation Status: Acute (3) Polysubstance abuse: Status: Acute (4) Cocaine abuse: Status: Acute Plan Anterior T inversions on the EKG but no cardiac symptoms and negative high sensitivity troponin. Cardiac BNP is slightly abnormal at 113. Not clear if this represents right ventricular strain pattern related to pulmonary issues from smoking cocaine. Less likely LAD territory ischemia. In the echocardiogram, LVEF is 55%. In some views, low normal. Otherwise no significant findings. With regard to further workup, recommend a coronary CTA as an outpatient. As it seems that she is going to inpatient rehabilitation somewhere near [place], we will need to see how it can be accomplished. If able, to be ordered through rehabilitation physician. Otherwise, must refrain from cocaine and we discussed about that. Discussed with Dr. Goode about plan. Procedures Date of Service Date of Service: 10/24/24
--- NOTE | 2024-10-24 14:09 | PC.NURSE ---
Discharge Assessment complete and reviewed with patient by SARAI Hernandez. Plan to D/C To Drug Rehab tomorrow if bed avialble.
--- NOTE | 2024-10-24 14:59 | MHC.RECOVSUP ---
Project/Production Manager Imaging Note Patient referred to [facility] via email and 2 fax #s. Had to request to talk to cell feed department supervisor to finish intake call, but did my best to advocate for pt. Patient referred to [facility] via 5 email addresses, 1 which was central intake whom received it while I was on the phone with them. Still waiting to hear back from Cory at [facility], he has fast track to beds- will let me know if any become available from 3pm discharge schedule.
[2024-10-24 15:15] VITALS: PULSE 77; RESP 16; O2SAT 98
--- NOTE | 2024-10-24 15:17 | MHC.CM.PN ---
pt dc cancelled to [facility] pt needs a cardiac cat scan
[2024-10-24 15:20] VITALS: BP 115/59; PULSE 94; RESP 18; TEMP 36.6; O2SAT 96
== END 2024-10-24 16:50 | disposition home or self-care (01) | DRG 141 ==
LOC: HO.ED 10-22 00:29 → HO.EDOVER 10-22 01:15 → HO.S3 10-22 07:29
PROVIDERS: Nurse Practitioner Family; Physician Assistant Medical; Admitting Provider Internal Medicine; Emergency Provider Emergency Medicine; Visit Provider Internal Medicine
DX: J45.21 Mild intermittent asthma with (acute) exacerbation (principal); F11.20 Opioid dependence, uncomplicated; F14.10 Cocaine abuse, uncomplicated; R94.31 Abnormal electrocardiogram [ECG] [EKG]; F41.9 Anxiety disorder, unspecified; F19.10 Other psychoactive substance abuse, uncomplicated; Z59.02 Unsheltered homelessness; Z20.822 Contact with and (suspected) exposure to COVID-19; Z79.899 Other long term (current) drug therapy
CPT/HCPCS: 0241U; 36415; 71046; 71275; 76705; 80048; 80053; 80076; 80307; 81001; 82803; 83605; 83690; 83735; 83880; 84484; 84702; 85025; 85379; 85610; 85652; 86140; 87040; 93005; 93306; 94640; 99285; J0696; J2060; Q9967; S9485

== ENCOUNTER → 2024-10-21 17:39 | Outpatient (BNV) | payer OTHER, SELFPAY | PROVIDERS: Admitting Provider Internal Medicine; Emergency Provider Emergency Medicine; Visit Provider Internal Medicine Cardiovascular Disease | DX: R94.31 Abnormal electrocardiogram [ECG] [EKG] (principal) | CPT/HCPCS: 93010 ==

== ENCOUNTER 2024-10-22 01:06 | Outpatient (BNV) | payer OTHER, SELFPAY | END 2024-10-24 07:00 | PROVIDERS: Admitting Provider Internal Medicine; Emergency Provider Emergency Medicine; Visit Provider Internal Medicine | DX: R94.31 Abnormal electrocardiogram [ECG] [EKG] (principal) | CPT/HCPCS: 93306 ==

== ENCOUNTER → 2024-10-22 01:06 | Outpatient (BNV) | payer OTHER, SELFPAY | PROVIDERS: Admitting Provider Internal Medicine; Emergency Provider Emergency Medicine; Visit Provider Internal Medicine | DX: J45.21 Mild intermittent asthma with (acute) exacerbation (principal); F19.10 Other psychoactive substance abuse, uncomplicated | CPT/HCPCS: 99222; 99231; 99239; 99499 ==

== ENCOUNTER → 2024-10-22 01:06 | Outpatient (BNV) | payer OTHER, SELFPAY | PROVIDERS: Admitting Provider Internal Medicine; Emergency Provider Emergency Medicine; Visit Provider Internal Medicine | DX: R94.31 Abnormal electrocardiogram [ECG] [EKG] (principal); J45.901 Unspecified asthma with (acute) exacerbation; F19.10 Other psychoactive substance abuse, uncomplicated; F14.10 Cocaine abuse, uncomplicated | CPT/HCPCS: 99223 ==

== ENCOUNTER 2024-12-03 10:37 | Emergency (ER) | payer OTHER, SELFPAY ==
[2024-12-03 11:39] VITALS: BP 115/73; PULSE 82; RESP 18; TEMP 37.1; O2SAT 100; BMI 20.1
--- NOTE | 2024-12-03 13:45 | ED.GENADULT ---
HPI - General Adult General Chief complaint: General Medical Stated complaint: needs suboxone Time Seen by Provider: 12/03/24 13:06 Source: patient Mode of arrival: ambulatory Limitations: no limitations History of Present Illness ED Provider: Dilia Chavez NP HPI narrative: Patient is a 34-year-old female who presents emergency department for assistance with Suboxone dosing. She is reports that she has been residing at [facility] for approximately 14 days. She takes Suboxone 8 mg films 3 times daily for a total of 24 mg in a day. She receives her prescription from [employer] [employer] which is sent to [facility] and subsequently delivered to [facility] where she takes it under staff observation. And speaking with staff at the facility as well as the patient herself, there seems to have been an issue with the most recent prescription from [employer] to the pharmacy. She was last dose yesterday evening. On med reconciliation profile it appears to be filled at [facility], but not delivered in the pharmacy is closed on the weekend. Therefore she has missed a dose this morning and is feeling quite anxious stating that she feels as though she will leave and use recreational opiates if she can not get her Suboxone. She contact the [employer] they tried to alternatively send the prescription to [facility] pharmacy but evidently they would not fill it due to the prescription already being filled at [facility]. Per her [facility] record, there is not been a most recent fill reflecting today's date or even yesterday's date. Related Data Home Medications ?Medication ?Instructions ?Recorded ?Confirmed buprenorphine 8 mg-naloxone 2 mg 1 film sublingual BID 10/22/24 10/22/24 sublingual film (Suboxone) clonidine HCl 0.1 mg tablet 0.1 mg PO TID 10/22/24 10/22/24 hydroxyzine pamoate 25 mg capsule 25 mg PO TID 10/22/24 10/22/24 melatonin 3 mg tablet 3 mg PO BEDTIME 10/22/24 10/22/24 quetiapine 25 mg tablet 25 mg PO BEDTIME 10/22/24 10/22/24 ropinirole 0.25 mg tablet 0.25 mg PO BEDTIME 10/22/24 10/22/24 trazodone 50 mg tablet 50 mg PO BEDTIME 10/22/24 10/22/24 Previous Rx's ?Medication ?Instructions ?Recorded omeprazole 20 mg capsule,delayed 20 mg PO DAILY #30 caps 10/23/24 release prednisone 20 mg tablet 40 mg (2 x 20 mg) PO DAILY #2 tabs 10/23/24 buprenorphine 8 mg-naloxone 2 mg 1 film buccal TID #5 ea 12/03/24 sublingual film (Suboxone) Allergies Allergy/AdvReac Type Severity Reaction Status Date / Time No Known Allergies Allergy Mild UNKNOWN Verified 12/03/24 11:41 Review of Systems Review of Systems: Yes all other systems are reviewed and are negative [facility] Past Medical History Attestation statement: The following information was validated with the patient. Source: old records reviewed Family History Family History Maternal Uncle Cardiomyopathy Heart transplant recipient Social History Social History Household Members: None Housing: Homeless Do you presently have visiting nurse or other home services: No Alcohol intake: never Patient Tobacco Use Status: Never used Tobacco Substance Use Type: Crack/Cocaine and Heroin Advance Directives: No Advance Directives Information Provided: No Do you have a plan to hurt others: No Plan service: No Physical Exam ED Vital Signs: Vital Signs - 24 hr 12/03/24 11:39 Temperature 98.7 F Pulse Rate 82 Respiratory Rate 18 Blood Pressure 115/73 Pulse Oximetry 100 Oxygen Delivery Method Room Air BMI result Body Mass Index 20.1 Appearance: Alert.?Oriented to person, place and time. No acute distress.?Normal affect. Eyes: Pupils equal, round and reactive to light.? CVS: Heart sounds normal. Normal heart rate and rhythm.? Pulses normal.?? Respiratory: No respiratory distress.? Lung sounds clear to auscultation bilaterally?? Skin: Skin warm and dry.? Normal skin color.? Extremities: No lower extremity edema.? Neuro: Moves all extremities spontaneously. Ambulates with normal steady gait. Medical Decision Making Medical Decision Making MDM Narrative: Patient is a 34-year-old female with past medical history of opioid use disorder presenting to emergency department with concern for withdrawal, in the setting of not having received her Suboxone as per HPI. See HPI regarding [facility] review. I have given her a dose of Suboxone here in the emergency department. I contacted [facility] pharmacy directly, they have made me aware that the issue at hand is an insurance coverage issue because it has already been filled they can not feel an additional prescription to have the insurance cover it. I did send over a prescription to the pharmacy to cover a total of 5 films to get her through till Thursday when it should be delivered from [facility]. I spoke with the pharmacist Franci at [facility] on [facility], this would be an [id number] cost of the patient of 22 dollars. Patient was made aware of this and she states that she will contact her mother to receive the money for her prescription. She will be provided with a last dose letter and discharged back to her sober living facility Differential Diagnosis Differential Diagnoses: The differential diagnosis associated with the presentation includes (See narrative above) External Record Review External record reviewed: Outpatient record and Other (See HPI regarding [facility]) Prescription Management I considered prescription management with: Other (See narrative above) Discharge Plan Discharge Clinical Impression: Opioid use disorder Patient Disposition: Home, Self-Care Instructions: Opioid Withdrawal (ED) Additional Instructions: I have spoken with [facility] on [facility] directly. I spoke with the pharmacist. I have sent a prescription for a total of 5 films to cover 2 additional films today, 3 tomorrow. This will be an [id number] cost you of 22 dollars due to the insurance not covering the script at this time as it has already been ?filled? at [facility] pharmacy unfortunately just has not yet been delivered. Prescriptions: New buprenorphine-naloxone [Suboxone] 8-2 mg film 1 film buccal TID Qty: 5 0RF No Action quetiapine 25 mg tablet 25 mg PO BEDTIME clonidine HCl 0.1 mg tablet 0.1 mg PO TID trazodone 50 mg tablet 50 mg PO BEDTIME melatonin 3 mg tablet 3 mg PO BEDTIME ropinirole 0.25 mg tablet 0.25 mg PO BEDTIME hydroxyzine pamoate 25 mg capsule 25 mg PO TID buprenorphine-naloxone [Suboxone] 8-2 mg film 1 film sublingual BID prednisone 20 mg Tablet 40 mg PO DAILY Qty: 2 0RF omeprazole 20 mg Capsule,Delayed Release(Dr/Ec) 20 mg PO DAILY Qty: 30 0RF Referrals: Physician,Unknown J [Primary Care Provider] - Print Language: Chinese
--- NOTE | 2024-12-03 14:32 | PC.NURSE ---
Spoke to the canvas goods supervisor Sanjana Grady at [facility] confirmed suboxone dose of 8mg 3x daily from [facility]. [facility] called spoke to Suzi awaiting call.
[2024-12-03] MEDS: Buprenorphine/Naloxone 8/2 mg FILM 1 FILM SUBLINGUAL (14:36)
[2024-12-03 14:40] VITALS: BP 115/73; PULSE 82; RESP 18; TEMP 37.1; O2SAT 100
== END 2024-12-03 14:41 | disposition home or self-care (01) ==
PROVIDERS: Emergency Provider Emergency Medicine
DX: F11.20 Opioid dependence, uncomplicated (principal)
CPT/HCPCS: 99282; 99283

== ENCOUNTER 2025-06-03 01:56 | Emergency (ER) | payer OTHER, SELFPAY ==
[2025-06-03] VITALS (7 sets, daily range): BP systolic 100–164; BP diastolic 58–98; PULSE 83–127; RESP 16–20; TEMP 36.7–37.2; O2SAT 93–98; BMI 18.5
--- NOTE | ~2025-06-03 | XR_ITS ---
CLINICAL HISTORY: pain in r wrist s p fall Right wrist, 4 views COMPARISON: None provided FINDINGS: No acute fracture. No dislocation. Unremarkable soft tissues. IMPRESSION: No acute findings. This document has been electronically signed by: Onofre Viera MD on 06/03/2025 04:17:36
--- NOTE | 2025-06-03 02:12 | ED.PSYCH ---
HPI - Psych General Chief Complaint: ETOH/Substance Use Stated Complaint: Substatance Abuse Time Seen by Provider: 06/03/25 02:04 History of Present Illness ED Provider: James Velasquez MD HPI Narrative: Patient was found in public intoxicated she admits to using cocaine fentanyl and has writhing and erratic behavior she is attributing to using crack cocaine prior to arrival. She says to me that a few days ago she struck her head she has not had any headache she has a small bruise near the corner of the right eye but has no visual symptoms laceration has begun to heal. No neck pain. Denies any focal deficits. Denies SI and HI. Reports that she has been unable to sleep she is desperate to sleep and thirsty. Related Data Home Medications ?Medication ?Instructions ?Recorded ?Confirmed buprenorphine 8 mg-naloxone 2 mg 1 film sublingual BID 10/22/24 10/22/24 sublingual film (Suboxone) clonidine HCl 0.1 mg tablet 0.1 mg PO TID 10/22/24 10/22/24 hydroxyzine pamoate 25 mg capsule 25 mg PO TID 10/22/24 10/22/24 melatonin 3 mg tablet 3 mg PO BEDTIME 10/22/24 10/22/24 quetiapine 25 mg tablet 25 mg PO BEDTIME 10/22/24 10/22/24 ropinirole 0.25 mg tablet 0.25 mg PO BEDTIME 10/22/24 10/22/24 trazodone 50 mg tablet 50 mg PO BEDTIME 10/22/24 10/22/24 Previous Rx's ?Medication ?Instructions ?Recorded omeprazole 20 mg capsule,delayed 20 mg PO DAILY #30 caps 10/23/24 release prednisone 20 mg tablet 40 mg (2 x 20 mg) PO DAILY #2 tabs 10/23/24 buprenorphine 8 mg-naloxone 2 mg 1 film buccal TID #5 ea 12/03/24 sublingual film (Suboxone) Allergies Allergy/AdvReac Type Severity Reaction Status Date / Time No Known Allergies Allergy Mild UNKNOWN Verified 06/03/25 02:02 [facility] Family History Family History Maternal Uncle Cardiomyopathy Heart transplant recipient Social History Social History Household Members: None Housing: Homeless Do you presently have visiting nurse or other home services: No Alcohol intake: former Patient Tobacco Use Status: Never used Tobacco Smoked in Last 30 Days: No Use of substances other than those prescribed or required for medical reasons: Yes Substance Use Type: Crack/Cocaine and Heroin Last Used Substance: Hours (ago) Advance Directives: No Advance Directives Information Provided: Yes service: No Physical Exam Exam: Exam: EXAM: Gen: Hyperactive, erratic behavior and movements, bruxism. Pressured speech appears unkempt with poor hygiene Head: Small bruise near the corner of the right eye no other cranial trauma. Overlying this there is a about a half a cm laceration that appears well healing. Eyes: Anicteric, Normal conjunctiva. 6 mm symmetric and reactive pupils no conjunctival injection ENT: Dry oral mucosa, no pallor. ? Neck: Supple. Skin: ?No observable rash or bruising on exposed or examined skin Respiratory: Breathing comfortably, No distress.Clear to auscultation bilaterally, symmetric chest expansion, No wheeze, rales, ronchi. Cardiovascular: Regular rate and rhythm. No murmurs or rub. Well perfused periphery, warm extremities. No edema. ? Abdominal: No focal tenderness. Soft, no objective distension. No palpable masses or obvious organomegaly. ?No guarding, no rebound tenderness or other peritoneal findings. : No flank tenderness. Neuro: Alert. Gross movement of all extremities intact. ?Cranial nerves 2-12 grossly intact. No ataxia nystagmus or gross motor or sensory deficits Psych: Anxious, pressured speech, sympathomimetic no SI or HI MSK: No grossly visible deformity. Reporting right wrist pain but there was no deformity or focal bony tenderness of the wrist joint. Vital signs: See flowsheet Vital Signs: Vital Signs: Last Vital Signs Temp 98.2 F 06/03/25 17:48 Pulse 92 06/03/25 17:48 Resp 17 06/03/25 17:48 BP 136/87 06/03/25 17:48 Pulse Ox 97 06/03/25 17:48 O2 Del Method Room Air 06/03/25 17:48 BMI result Body Mass Index 18.5 Course Course Course Narrative: patient still sleepy but easily woken. she states she feels fine will continue to monitor. no vomiting, no change in mental status JASON 841am 06/03/25 Reevaluation(s) Reevaluation #1: seen by our addiction medicine team - no detox, no SI/HI. wants to follow up outpatinet in the clinic she is still sleepy but alert and oriented x 3 - uses crack/heroin Reevaluation #2: 06/03/25 335pm awake and alert does not want a retirement or detox 10mg methadone ordered will go to clinic tomorrow at this time eating and awake I do not suspech ICH Medications Administered Discontinued Medications Generic Name Dose Route Start Last Admin Trade Name Jacob PRN Reason Stop Dose Admin Lorazepam 2 mg 06/03/25 02:46 06/03/25 02:50 Lorazepam 1 Mg Tablet PO 06/03/25 02:47 2 mg ONCE ONE Administration Methadone HCl 10 mg 06/03/25 15:34 06/03/25 15:49 Methadone Hcl 20 Mg/2 Ml Oral.Conc PO 06/03/25 15:35 10 mg ONCE ONE Administration Naloxone HCl 8 mg 06/03/25 12:52 06/03/25 15:49 Naloxone Hcl Nasal Take Home 4 Mg [place] NOSTRILALT 06/03/25 12:53 8 mg ONCE ONE Administration Medical Decision Making Medical Decision Making MDM Narrative: Medical Decision Makin-year-old female with cocaine fentanyl use with acute cocaine/crack intoxication. She did report some head trauma but has no headache. An attempt was made to get a CT of her head ordered by nursing which I approved however when I evaluated the patient I felt it was low likelihood of the patient has acute intracranial injuries she has no headache no focal deficits there is a small bruise only to the right side of the face and she is not anticoagulated. This is a low yield test and not worth the risk of heavily sedating this patient to get an adequate study with no motion artifact which was difficult to attempt. Wrist x-ray without fracture she has no other signs of injury on her. She is probably chronically malnourished unkempt and homeless. May need addiction services in the morning when she wakes. P.o. Ativan for anxiety and rest rastafarian. A.m. reassessment Preliminary Favored Differential Diagnosis: Crack cocaine use disorder, fentanyl use disorder, polysubstance use disorder, poor hygiene, psychosocial issues, among additional considered etiologies Testing Interpreted Independently: Personally reviewed x-ray of the right wrist without bony abnormalities Radiology or Lab testing Results Reviewed: Not Applicable Consults: Not Applicable Independent Historians/External Chart Reviews: Not Applicable Social Determinants of Health Impacting MDM/Planning: Homeless, cocaine use disorder, fentanyl use disorder, poor likelihood of following plans for follow up Lab Data 06/03/25 02:21 06/03/25 02:21 Labs: Lab Results 06/03/25 Range/Units 02:21 WBC 10.1 (4.8-10.8) X10*3/uL RBC 5.04 (4.20-5.50) X10*6/uL Hgb 12.4 (12.0-16.0) g/dl Hct 37.2 (37.0-47.0) % MCV 73.8 L (80.0-98.0) fL MCH 24.6 L (27.0-33.0) pg MCHC 33.3 (31.0-35.0) g/dl RDW 13.4 (11.0-16.0) % Plt Count 220 (160-400) X10*3/uL MPV 10.5 (9.4-12.3) fL Immature Gran % (Auto) 0.2 (0.0-0.4) % Neut % (Auto) 67.0 (45-73) % Lymph % (Auto) 17.6 L (20-40) % Garden % (Auto) 13.5 H (2-11) % Eos % (Auto) 1.3 (0-4) % Baso % (Auto) 0.4 (0-2) % Lymph # (Auto) 1.8 (1.2-4.9) X10*3/uL Garden # (Auto) 1.4 H (0.1-1.2) X10*3/uL Eos # (Auto) 0.1 (0.0-0.4) X10*3/uL Baso # (Auto) 0.0 (0.0-0.2) X10*3/uL Abs Immat Gran (auto) 0.02 (0.00-0.03) X10*3/uL Absolute Neuts (auto) 6.8 (2.0-8.3) x10*3/uL Absolute Nucleated RBC 0.000 (0.0-0.012) X10*3/uL Nucleated RBC % (auto) 0.0 (0.0-0.2) /100WBC Sodium 141 (135-145) mmol/L Potassium 3.3 D (3.3-5.1) mmol/L Chloride 104 (96-108) mmol/L Carbon Dioxide 26 (22-29) mmol/L Anion Gap 14 (12-20) BUN 15 (9-16) mg/dL Creatinine 0.83 (0.5-1.4) mg/dL Estim Creat Clear Calc 66.3 Estimated GFR > 60 Random Glucose 101 (60-115) mg/dL Calcium 8.5 D (8.4-10.2) mg/dL Total Bilirubin 0.3 (0.0-1.0) mg/dL AST 48 H (5-31) U/L ALT 26 (0-31) U/L Alkaline Phosphatase 97 (39-117) U/L Total Protein 6.6 (6.5-8.0) g/dL Albumin 4.1 (3.5-5.0) g/dL Ethyl Alcohol < 10 mg/dL Discharge Plan Discharge Clinical Impression: Cocaine abuse, Polysubstance abuse Patient Disposition: Home, Self-Care Instructions: Cocaine Use Disorder (ED), Polysubstance Use Disorder (ED) Additional Instructions: Opiate use disorder You were seen in our Emergency Department today for treatment of opiate use disorder. You may have been dosed with medication for opiate use disorder (MOUD) in the form of suboxone or methadone. You may experience feeling some withdrawal symptoms and this is normal. The? dose in the Emergency Department is a starting dose and meant to be titrated up once you follow up with a clinic. Please do not feel discouraged, it is a process. The nurse has reviewed with you where to follow up and what information to bring with you, to continue treatment. You also may have been given naloxone (narcan) to take home with you. This medication is used to potentially treat opiate overdose. If you decide you want to stop or cut down on how much you?re using, you can call or walk into our outpatient Addiction Treatment office: [facility] (M-F 9am-5p) [address] [place] [address], [address] [phone] You may have been provided with safer injection?items, please take time to take care of YOU and your health. Use new supplies whenever possible to lessen the chances of infections and other illnesses.? ?If you need more supplies, please go [facility],? [address] [place], [place] you can call or text to coordinate delivery of safer supplies. You were also provided a list of several treatment providers in the area.? If you experience any worsening symptoms you cannot control please return to the ED or call 911. Please follow up at your next appointment. Things to look out for are fevers, chest pain, shortness of breath, severe pain, dizziness, fainting or any other concerns. DISCHARGE DIAGNOSES: Cocaine intoxication HISTORY OF PRESENTATION: ?Erratic behavior and cocaine intoxication EMERGENCY DEPARTMENT COURSE,TESTS, TREATMENTS: While in the ED today you had basic lab work that was reassuring and were monitored. You had an x-ray of your right wrist which showed no fracture or other actionable abnormality DISCHARGE MEDICATIONS: ?[We have made no changes to your regular medication regimen] FOLLOW-UP: ?Call your primary or general physician soon as possible to discuss your symptoms, your ED visit and to discuss follow up plans INSTRUCTIONS ?& RETURN PRECAUTIONS: If any symptoms change first call your primary physician, if it is after-hours your primary doctors office should have a provider corrections lieutenant you can speak with. If the symptoms are severe or very concerning to you then call 911 or return to the ED. James Velasquez MD Emergency Physician [facility] Prescriptions: No Action quetiapine 25 mg tablet 25 mg PO BEDTIME clonidine HCl 0.1 mg tablet 0.1 mg PO TID trazodone 50 mg tablet 50 mg PO BEDTIME melatonin 3 mg tablet 3 mg PO BEDTIME ropinirole 0.25 mg tablet 0.25 mg PO BEDTIME hydroxyzine pamoate 25 mg capsule 25 mg PO TID buprenorphine-naloxone [Suboxone] 8-2 mg film 1 film sublingual BID prednisone 20 mg Tablet 40 mg PO DAILY Qty: 2 0RF omeprazole 20 mg Capsule,Delayed Release(Dr/Ec) 20 mg PO DAILY Qty: 30 0RF buprenorphine-naloxone [Suboxone] 8-2 mg film 1 film buccal TID Qty: 5 0RF Interventions: ED Discharge Assessment Last Done: 06/03/25 17:48 Discharge Date/Time: 06/03/25 18:12 Print Language: Jamaican
--- NOTE | 2025-06-03 02:15 | PC.NURSE ---
Patient's belongings in [place] port shelf 4, 3 bags.
[2025-06-03 02:26] LABS: Hematocrit 37.2 % (37.0-47.0); Hemoglobin 12.4 g/dl (12.0-16.0); Imm Gran Abs Auto 0.02 X10*3/uL (0.00-0.03); Imm Gran Pct Auto 0.2 % (0.0-0.4); Lymphocytes Absolute Auto 1.8 X10*3/uL (1.2-4.9); MANUAL DIFF FLAG NO; Mean Corpuscular HGB Conc 33.3 g/dl (31.0-35.0); Mean Corpuscular Hemoglobin 24.6 pg (27.0-33.0); Mean Corpuscular Volume 73.8 fL (80.0-98.0); NRBC Abs Auto 0.000 X10*3/uL (0.0-0.012); NRBC Pct Auto 0.0 /100WBC (0.0-0.2); Platelet Count 220 X10*3/uL (160-400); Red Blood Count 5.04 X10*6/uL (4.20-5.50); White Blood Count 10.1 X10*3/uL (4.8-10.8)
--- NOTE | 2025-06-03 02:27 | PC.NURSE ---
Labs drawn and sent to lab by MANSI Alvarado.
[2025-06-03 02:58] LABS: Alanine Aminotransferase 26 U/L (0-31); Albumin Level 4.1 g/dL (3.5-5.0); Alkaline Phosphatase 97 U/L (39-117); Anion Gap 14 (12-20); Aspartate Amino Transferase 48 U/L (5-31); Blood Urea Nitrogen 15 mg/dL (9-16); Calcium 8.5 mg/dL (8.4-10.2); Carbon Dioxide 26 mmol/L (22-29); Chloride 104 mmol/L (96-108); Creatinine Clr Calc Pharmacy 66.3; Estimated Glomerular Filt Rate > 60; Potassium 3.3 mmol/L (3.3-5.1); Sodium 141 mmol/L (135-145); Total Protein 6.6 g/dL (6.5-8.0)
--- NOTE | 2025-06-03 04:03 | PC.NURSE ---
multiple attempts made to bring pt to CT scan pt not cooperative with scan. made aware pt repositioned back in room
--- OUTSIDE RECORDS SUMMARY | 2025-06-03 07:32 | XMS_ITS | Clinical Summary ---
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 Role Phone Unavailable Primary Care Provider Unavailabl e Social History Tobacco Use Types Packs/Day Years Used Date Smoking Tobacco: Never Assessed Comments Unknown Sex and Gender Information Value Date Recorded Sex Assigned at Not on file Legal Sex Female 4:57 AM EST Gender Identity Not on file Sexual Orientation Not on file Plan of Treatment Health Maintenance Due Date Last Done Comments DTaP,Tdap,and Td Vaccines (1 - Tdap) 2008 Hepatitis B Vaccines (1 of 3 - 19+ 3-dose series) 2008 Cervical Cancer Screening: P ap Smear 2010 COVID-19 Vaccine ( - 2023-2 5 season) 2024 Depression Screening 11/09/2024 Influenza Vaccine (#1) 2025 HIB Vaccines Aged Out No longer eligi ble based on patient's age to complete this topic HPV Vaccines Aged Out No longer eligi ble based on patient's age to complete this topic Hepatitis A Vaccines Aged Out No long er eligible based on patient's age to complete this topic IPV Vaccines Aged Out No longer eligi ble based on patient's age to complete this topic MMR Vaccines Aged Out No longer eligi ble based on patient's age to complete this topic Meningococcal ACWY Vaccine Aged Out N o longer eligible based on patient's age to complete this topic Meningococcal B Vaccine Aged Out No l onger eligible based on patient's age to complete this topic Pneumococcal Vaccine: Pediat rics (0 to 5 Years) and At-Risk Patients (6 to 49 Years) Aged Out No longer eligible b ased on patient's age to complete this topic RSV Immunization Patients Un tracy 20 months Aged Out No longer eligible b ased on patient's age to complete this topic Varicella Vaccines Aged Out No longer eligible based on patient's age to complete this topic
--- NOTE | 2025-06-03 08:41 | PC.NURSE ---
Pt continues to rest comfortably with eyes closed. She is easily aroused to verbal stimuli and responds to yes and no questions however is very drowsy. Pt provided with juice and crackers at bedside. VSS at this time. Dispo pending.
--- NOTE | 2025-06-03 10:02 | PC.NURSE ---
VSS continue to be stable. Pt gentle woken and Pt c/o being cold--no other complaints offered. Pt states she would like to eat/drink at this time and was reminded she has food on her bedside table. Pt provided with warm blanket. Dispo pending
--- NOTE | 2025-06-03 14:50 | PC.NURSE ---
Pt continues to sleep this afternoon. She can easily be woken up but is groggy and agitated upon waking. metal sander met with Pt earlier today, awaiting notes. VS continue to be stable and Pt denies any pain at this time. She expresses concern for a place to sleep tonight as she reports she lives on the streets. Pt reports being thirsty but has yet to try to eat/drink with the food and juice supplied. Awaiting disposition at this time.
--- NOTE | 2025-06-03 15:05 | MHC.RECOVRN ---
Met w/ pt in ED9 following addiction consult to discuss substance use, recovery supports, and discharge planning. Upon approach pt is resting, does not appear to be in any acute distress, and does not show any signs of pain or discomfort. Pt briefly awakens when her name is called and then falls back asleep, however is AOx4, and asking about her phone/wanting to notify boyfriend that she is in the hospital. Pt able to answer some questions regarding [facility]. Pt stated she mainly uses cocaine (crack) via smoking but also uses 2-3 bags of fentanyl intranasaly. Pt denies IVDU. Pt does not wish to go to [facility]. She wants to be started on methadone here and for [facility] clinic referral to be made on her behalf for methadone dosing in the community. D/t pt being very sleepy now, will reassess at a later time. Pt is currently not in any withdrawal. Discussed with Dr. Spicer.
[2025-06-03] MEDS: methADONE HCl 20 MG/2 ML ORAL.CONC 10 MG PO (15:49)
[2025-06-03] MEDS: Naloxone HCl Nasal TAKE HOME 4 MG SPRAY 8 MG NOSTRILALT (15:49)
== END 2025-06-03 18:12 | disposition home or self-care (01) ==
PROVIDERS: Emergency Provider Emergency Medicine
DX: F14.10 Cocaine abuse, uncomplicated (principal); F19.10 Other psychoactive substance abuse, uncomplicated; S00.83XA Contusion of other part of head, initial encounter; W19.XXXA Unspecified fall, initial encounter; M25.531 Pain in right wrist; F41.9 Anxiety disorder, unspecified; F11.20 Opioid dependence, uncomplicated; Z59.00 Homelessness unspecified; Y93.89 Activity, other specified; Y92.480 Sidewalk as the place of occurrence of the external cause; Y99.9 Unspecified external cause status
CPT/HCPCS: 36415; 73110; 80053; 80307; 85025; 99284

== ENCOUNTER → 2025-06-03 02:23 | Outpatient (BNV) | payer OTHER, SELFPAY | PROVIDERS: Emergency Provider Emergency Medicine; Visit Provider Radiology Diagnostic Radiology | DX: M25.531 Pain in right wrist (principal) | CPT/HCPCS: 73110 ==

== ENCOUNTER 2025-08-04 09:56 | Emergency (ER) | payer OTHER, SELFPAY ==
--- NOTE | ~2025-08-04 | XR_ITS ---
EXAMINATION: XR CHEST CLINICAL INFORMATION: asthma, smoker COMPARISON: 10/21/2024. TECHNIQUE: 2 views of the chest were obtained. FINDINGS: The cardiac, hilar, and mediastinal contours are normal. The lungs are hyperaerated, however clear bilaterally. There is no pneumothorax or pleural effusion. There is no focal osseous or soft tissue abnormality. XR/XR chest 2V IMPRESSION: Hyperaerated lungs. No active pulmonary disease. Electronically signed by: Craig Schroeder MD 08/04/2025 12:20 PM EDT
[2025-08-04 10:05] VITALS: BP 119/76; PULSE 96; O2SAT 88; BMI 17.4
[2025-08-04 10:16] VITALS: BP 120/76; PULSE 85; RESP 12; TEMP 37.1; O2SAT 96
--- NOTE | 2025-08-04 11:09 | PC.NURSE ---
Pt sleeping, snoring. 93% on room air.
[2025-08-04 11:22] VITALS: BP 112/79; PULSE 76; RESP 17; TEMP 36.9; O2SAT 95
[2025-08-04 11:32] LABS: Hematocrit 39.0 % (37.0-47.0); Hemoglobin 12.5 g/dl (12.0-16.0); Imm Gran Abs Auto 0.03 X10*3/uL (0.00-0.03); Imm Gran Pct Auto 0.5 % (0.0-0.4); Lymphocytes Absolute Auto 1.1 X10*3/uL (1.2-4.9); MANUAL DIFF FLAG NO; Mean Corpuscular HGB Conc 32.1 g/dl (31.0-35.0); Mean Corpuscular Hemoglobin 24.7 pg (27.0-33.0); Mean Corpuscular Volume 77.1 fL (80.0-98.0); NRBC Abs Auto 0.000 X10*3/uL (0.0-0.012); NRBC Pct Auto 0.0 /100WBC (0.0-0.2); Platelet Count 268 X10*3/uL (160-400); Red Blood Count 5.06 X10*6/uL (4.20-5.50); White Blood Count 5.9 X10*3/uL (4.8-10.8)
[2025-08-04 11:49] LABS: Alanine Aminotransferase 18 U/L (0-31); Albumin Level 3.7 g/dL (3.5-5.0); Alkaline Phosphatase 88 U/L (39-117); Anion Gap 9 (12-20); Aspartate Amino Transferase 20 U/L (5-31); Blood Urea Nitrogen 5 mg/dL (9-16); Calcium 8.5 mg/dL (8.4-10.2); Carbon Dioxide 30 mmol/L (22-29); Chloride 107 mmol/L (96-108); Creatinine Clr Calc Pharmacy 84.7; Estimated Glomerular Filt Rate > 60; Potassium 3.8 mmol/L (3.3-5.1); Sodium 142 mmol/L (135-145); Total Protein 6.3 g/dL (6.5-8.0)
--- OUTSIDE RECORDS SUMMARY | 2025-08-04 11:51 | XMS_ITS | Clinical Summary ---
Author Organization 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
--- NOTE | 2025-08-04 12:00 | ED.SOB ---
HPI - SOB/Dyspnea General Chief Complaint: Dyspnea Stated Complaint: SOB PER EMS Time Seen by Provider: 08/04/25 11:47 Related Data Home Medications ?Medication ?Instructions ?Recorded ?Confirmed buprenorphine 8 mg-naloxone 2 mg 1 film sublingual BID 10/22/24 10/22/24 sublingual film (Suboxone) clonidine HCl 0.1 mg tablet 0.1 mg PO TID 10/22/24 10/22/24 hydroxyzine pamoate 25 mg capsule 25 mg PO TID 10/22/24 10/22/24 melatonin 3 mg tablet 3 mg PO BEDTIME 10/22/24 10/22/24 quetiapine 25 mg tablet 25 mg PO BEDTIME 10/22/24 10/22/24 ropinirole 0.25 mg tablet 0.25 mg PO BEDTIME 10/22/24 10/22/24 trazodone 50 mg tablet 50 mg PO BEDTIME 10/22/24 10/22/24 Previous Rx's ?Medication ?Instructions ?Recorded omeprazole 20 mg capsule,delayed 20 mg PO DAILY #30 caps 10/23/24 release prednisone 20 mg tablet 40 mg (2 x 20 mg) PO DAILY #2 tabs 10/23/24 buprenorphine 8 mg-naloxone 2 mg 1 film buccal TID #5 ea 12/03/24 sublingual film (Suboxone) albuterol sulfate 90 mcg/actuation 2 puff inhalation Q4-5H PRN 08/04/25 aerosol inhaler (Ventolin HFA) shortness of breath or wheezing #6.7 grams prednisone 20 mg tablet 40 mg (2 x 20 mg) PO DAILY 5 days 08/04/25 #10 tabs Allergies Allergy/AdvReac Type Severity Reaction Status Date / Time No Known Allergies Allergy Mild UNKNOWN Verified 08/04/25 10:12 [facility] Family History Family History Maternal Uncle Cardiomyopathy Heart transplant recipient Social History Social History Household Members: None Housing: Homeless Do you presently have visiting nurse or other home services: No Alcohol intake: former Patient Tobacco Use Status: Never used Tobacco Smoked in Last 30 Days: No Use of substances other than those prescribed or required for medical reasons: Yes Substance Use Type: Crack/Cocaine and Opiates Substance Use Type Other:: fentanyl Substance Use Frequency: Chronic Longstanding Advance Directives: No Advance Directives Information Provided: Yes service: No Physical Exam Vital Signs: Vital Signs: Last Vital Signs Temp 98.5 F 08/04/25 11:22 Pulse 76 08/04/25 11:22 Resp 17 08/04/25 11:22 BP 112/79 08/04/25 11:22 Pulse Ox 95 08/04/25 11:22 O2 Del Method Room Air 08/04/25 11:22 O2 Flow Rate 3 08/04/25 10:16 Oxygen Flow Rate 3 08/04/25 10:05 BMI result Body Mass Index 17.4 Medical Decision Making Lab Data 08/04/25 11:27 08/04/25 11:27 Labs: Lab Results 08/04/25 Range/Units 11:27 WBC 5.9 (4.8-10.8) X10*3/uL RBC 5.06 (4.20-5.50) X10*6/uL Hgb 12.5 (12.0-16.0) g/dl Hct 39.0 (37.0-47.0) % MCV 77.1 L (80.0-98.0) fL MCH 24.7 L (27.0-33.0) pg MCHC 32.1 (31.0-35.0) g/dl RDW 13.9 (11.0-16.0) % Plt Count 268 (160-400) X10*3/uL MPV 9.9 (9.4-12.3) fL Immature Gran % (Auto) 0.5 H (0.0-0.4) % Neut % (Auto) 68.6 (45-73) % Lymph % (Auto) 18.9 L (20-40) % [place] % (Auto) 4.2 (2-11) % Eos % (Auto) 7.3 H (0-4) % Baso % (Auto) 0.5 (0-2) % Lymph # (Auto) 1.1 L (1.2-4.9) X10*3/uL [place] # (Auto) 0.3 (0.1-1.2) X10*3/uL Eos # (Auto) 0.4 (0.0-0.4) X10*3/uL Baso # (Auto) 0.0 (0.0-0.2) X10*3/uL Abs Immat Gran (auto) 0.03 (0.00-0.03) X10*3/uL Absolute Neuts (auto) 4.1 (2.0-8.3) x10*3/uL Absolute Nucleated RBC 0.000 (0.0-0.012) X10*3/uL Nucleated RBC % (auto) 0.0 (0.0-0.2) /100WBC Sodium 142 (135-145) mmol/L Potassium 3.8 (3.3-5.1) mmol/L Chloride 107 (96-108) mmol/L Carbon Dioxide 30 H (22-29) mmol/L Anion Gap 9 L (12-20) BUN 5 L (9-16) mg/dL Creatinine 0.61 (0.5-1.4) mg/dL Estim Creat Clear Calc 84.7 Estimated GFR > 60 Random Glucose 98 (60-115) mg/dL Calcium 8.5 (8.4-10.2) mg/dL Total Bilirubin 0.1 (0.0-1.0) mg/dL AST 20 (5-31) U/L ALT 18 (0-31) U/L Alkaline Phosphatase 88 (39-117) U/L Total Protein 6.3 L (6.5-8.0) g/dL Albumin 3.7 (3.5-5.0) g/dL Discharge Plan Discharge Clinical Impression: Asthma with exacerbation, Polysubstance abuse Additional Instructions: Two puffs of albuterol inhaler every 4 hours for the rest of the day, continue with steroids starting tomorrow, please come back when you are ready to detox from smoking crack cocaine and fentanyl, this of course we will exacerbate your symptoms, your blood work, viral swab chest x-ray has been reassuring no evidence of ongoing infection. Prescriptions: New prednisone 20 mg tablet 40 mg PO DAILY 5 Days Qty: 10 0RF albuterol sulfate [Ventolin HFA] 90 mcg/actuation HFA aerosol inhaler 2 puff inhalation Q4-5H PRN (Reason: shortness of breath or wheezing) Qty: 6.7 0RF No Action quetiapine 25 mg tablet 25 mg PO BEDTIME clonidine HCl 0.1 mg tablet 0.1 mg PO TID trazodone 50 mg tablet 50 mg PO BEDTIME melatonin 3 mg tablet 3 mg PO BEDTIME ropinirole 0.25 mg tablet 0.25 mg PO BEDTIME hydroxyzine pamoate 25 mg capsule 25 mg PO TID buprenorphine-naloxone [Suboxone] 8-2 mg film 1 film sublingual BID prednisone 20 mg Tablet 40 mg PO DAILY Qty: 2 0RF omeprazole 20 mg Capsule,Delayed Release(Dr/Ec) 20 mg PO DAILY Qty: 30 0RF buprenorphine-naloxone [Suboxone] 8-2 mg film 1 film buccal TID Qty: 5 0RF Print Language: Kazakh
[2025-08-04 12:31] LABS: IDNOW Serial# 58CA691E; Influenza B2 Negative (Negative)
[2025-08-04 12:32] LABS: COVID-19 Test Negative (Negative); IDNOW Serial# 55D5AD1C
[2025-08-04 13:27] VITALS: BP 129/85; PULSE 75; RESP 16; TEMP 36.8; O2SAT 94
[2025-08-04 13:32] VITALS: BP 129/85; PULSE 75; RESP 16; TEMP 36.8; O2SAT 94
== END 2025-08-04 13:32 | disposition home or self-care (01) ==
PROVIDERS: Emergency Provider Emergency Medicine
DX: J45.901 Unspecified asthma with (acute) exacerbation (principal); F19.10 Other psychoactive substance abuse, uncomplicated; Z86.79 Personal history of other diseases of the circulatory system
CPT/HCPCS: 36415; 71046; 80053; 85025; 87502; 87635; 99283; 99284

== ENCOUNTER → 2025-08-04 12:01 | Outpatient (BNV) | payer OTHER, SELFPAY | PROVIDERS: Emergency Provider Emergency Medicine; Visit Provider Radiology Diagnostic Radiology | DX: J45.909 Unspecified asthma, uncomplicated (principal); F17.210 Nicotine dependence, cigarettes, uncomplicated | CPT/HCPCS: 71046 ==

== ENCOUNTER 2025-08-15 05:59 | Inpatient (IN) | payer OTHER, SELFPAY ==
[2025-08-15] VITALS (14 sets, daily range): BP systolic 105–150; BP diastolic 38–92; PULSE 63–107; RESP 16–20; TEMP 36.1–37.4; O2SAT 93–99; BMI 17.4
--- NOTE | ~2025-08-15 | XR_ITS ---
CLINICAL HISTORY: little finger, pain and swelling Frontal view of the left hand and 2 additional views of the left 5th digit. Comparison: None Findings: Bones intact. No dislocations. No significant loss of joint space or osteophytes. No erosions. No radiopaque foreign body. Prominent soft tissue edema about the 5th digit. IMPRESSION: Prominent soft tissue edema without evidence of fracture or malalignment. No radiopaque foreign body. This document has been electronically signed by: Jose Short MD on 08/15/2025 07:30:54
--- OUTSIDE RECORDS SUMMARY | 2025-08-15 06:18 | XMS_ITS | Clinical Summary ---
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
--- NOTE | 2025-08-15 06:29 | PC.NURSE ---
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
[2025-08-15] MEDS: Albuterol Sulfate 2.5 MG, Albuterol/Iprat 2.5/0.5MG 3 ML 3 ML INHALE ×2 (06:47→10:43)
[2025-08-15] MEDS: methADONE HCl 20 MG/2 ML ORAL.CONC 30 MG PO (06:51)
--- NOTE | 2025-08-15 06:52 | ED.SKABFB ---
HPI - Skin/Abscess/Foreign Bdy General Chief complaint: Skin/Abscess/Foreign Body Stated complaint: bug bite? Time Seen by Provider: 08/15/25 06:08 Source: patient and old records reviewed Mode of arrival: ambulatory Limitations: no limitations History of Present Illness ED Provider: JASON BARRETT narrative: 34 yo female with PMH of asthma and polysubstance abuse states she only sniffs and would like to get on MAT such as methadone. She states her L small finger started with ?insect bite then she squeezed it 3 days ago and now has redness, swelling, fevers, chills and cannot move the finger. She also notes she is wheezing and needs an inhaler. She would like to stop using drugs at this time. She denies any IVDA. She is R handed. complaint: lesion Onset (ago): day(s) (few) Tetanus up to date: yes Location: L hand Severity: moderate Quality: aching Pain Consistency: constant Relieving factors: immobilization Exacerbating factors: movement Context: other Associated symptoms: fever, chills and shortness of breath Treatments prior to arrival: none Related Data Home Medications ?Medication ?Instructions ?Recorded ?Confirmed buprenorphine 8 mg-naloxone 2 mg 1 film sublingual BID 10/22/24 10/22/24 sublingual film (Suboxone) clonidine HCl 0.1 mg tablet 0.1 mg PO TID 10/22/24 10/22/24 hydroxyzine pamoate 25 mg capsule 25 mg PO TID 10/22/24 10/22/24 melatonin 3 mg tablet 3 mg PO BEDTIME 10/22/24 10/22/24 quetiapine 25 mg tablet 25 mg PO BEDTIME 10/22/24 10/22/24 ropinirole 0.25 mg tablet 0.25 mg PO BEDTIME 10/22/24 10/22/24 trazodone 50 mg tablet 50 mg PO BEDTIME 10/22/24 10/22/24 Previous Rx's ?Medication ?Instructions ?Recorded omeprazole 20 mg capsule,delayed 20 mg PO DAILY #30 caps 10/23/24 release prednisone 20 mg tablet 40 mg (2 x 20 mg) PO DAILY #2 tabs 10/23/24 buprenorphine 8 mg-naloxone 2 mg 1 film buccal TID #5 ea 12/03/24 sublingual film (Suboxone) albuterol sulfate 90 mcg/actuation 2 puff inhalation Q4-5H PRN 08/04/25 aerosol inhaler (Ventolin HFA) shortness of breath or wheezing #6.7 grams prednisone 20 mg tablet 40 mg (2 x 20 mg) PO DAILY 5 days 08/04/25 #10 tabs Allergies Allergy/AdvReac Type Severity Reaction Status Date / Time No Known Allergies Allergy Mild UNKNOWN Verified 08/15/25 06:04 Review of Systems Review of Systems: Constitutional : pos Fever, pos Chills ENT/Mouth : No sore throat, No Rhinorrhea Eyes: No Eye Pain, No Swelling, No Redness Cardiovascular : No Chest Pain, pos SOB Respiratory : pos Cough, No Sputum Gastrointestinal : No Nausea, No Vomiting, No Diarrhea, No abdominal Pain Genitourinary : No Dysuria, No Hematuria Musculoskeletal : No joint pain, No Myalgias, No Joint Swelling Skin : pos Skin Lesions, positive skin rash Neuro : No Weakness, No Numbness, No Headache All other systems reviewed and are negative [facility] Past Medical History Attestation statement: The following information was validated with the patient. Source: old records reviewed Medical History Cocaine abuse Acute asthma exacerbation Polysubstance abuse Family History Family History Maternal Uncle Cardiomyopathy Heart transplant recipient Social History Social History Household Members: None Housing: Homeless Do you presently have visiting nurse or other home services: No Alcohol intake: current Patient Tobacco Use Status: Never used Tobacco Smoked in Last 30 Days: Yes Use of substances other than those prescribed or required for medical reasons: Yes Substance Use Type: Heroin Advance Directives: No Advance Directives Information Provided: Yes Patient : No service: No Physical Exam Vital Signs: Vital Signs: Last Vital Signs Temp 98.4 F 08/15/25 06:03 Pulse 80 08/15/25 06:48 Resp 16 08/15/25 06:48 BP 150/92 H 08/15/25 06:03 Pulse Ox 93 08/15/25 06:03 O2 Del Method Room Air 08/15/25 06:03 BMI result Body Mass Index 17.4 Appearance: Alert. Oriented X3. No acute distress. Eyes: Pupils equal, round and reactive to light. ENT: Pharynx normal. Neck: Normal inspection. Neck supple. CVS: Normal heart rate and rhythm. Pulses normal. Respiratory: No respiratory distress. Breath sounds mild exp diffuse wheeze Abdomen: Soft and nontender. Skin: Skin warm and dry. Normal skin color. Normal skin turgor. Extremities: No lower extremity edema. areas of picked lesions on ext but no signs of 2ndary cellulitis. L pinkie finger is circ red hot and swollen BCR in digit finger held in flexed position, unable to flex or fullly extend finger Neuro: Oriented X 3. No motor deficit. No sensory deficit. Medications Administered Discontinued Medications Generic Name Dose Route Start Last Admin Trade Name Freq PRN Reason Stop Dose Admin Albuterol Sulfate 2.5 mg/ 0 mg 08/15/25 06:41 08/15/25 06:47 Albuterol/Ipratropium 3 ml INHALE 08/15/25 06:42 5 dose ONCE ONE Administration Piperacillin Sod/Tazobactam 50 mls @ 100 mls/hr 08/15/25 06:32 08/15/25 07:25 Sod 3.375 gm/ Sodium Chloride IV 08/15/25 07:01 Infused ONCE ONE Infusion Vancomycin HCl 1,000 mg/ 270 mls @ 270 mls/hr 08/15/25 06:32 08/15/25 07:26 Sodium Chloride IV 08/15/25 07:31 270 mls/hr ONCE ONE Administration Methadone HCl 30 mg 08/15/25 06:32 08/15/25 06:51 Methadone Hcl 20 Mg/2 Ml Oral.Conc PO 08/15/25 06:33 30 mg ONCE ONE Administration Medical Decision Making Medical Decision Making MDM Narrative: 34 yo female with PMH of asthma and polysubstance abuse here with c/o L finger swelling/redness but denies IVDA - exam concerning for cellulitis and flexor tenosynovitis at this time will obtain xray, labs, start on IV abx and consult orthopedics. I have also ordered initial methadone dose and given her known asthma and wheezing will give bronch therapy. Likely admit for IV abx Differential Diagnosis Differential Diagnoses: The differential diagnosis associated with the presentation includes cellulitis, abscess, tenosynovitis Admission/Observation Consideration of admission/observation: Escalation of care including admission/observation considered admit for IV abx Consult Healthcare Provider Management of the patient was discussed with: Hospitalist (will admit) and [facility] ortho aware, keep NPO and admit for IV abx Lab Data MDM Lab Attestation statement: I reviewed the patient's lab results. 08/15/25 06:48 08/15/25 06:48 Labs: Lab Results 08/15/25 Range/Units 06:48 WBC 12.4 H (4.8-10.8) X10*3/uL RBC 4.77 (4.20-5.50) X10*6/uL Hgb 11.7 L (12.0-16.0) g/dl Hct 36.0 L (37.0-47.0) % MCV 75.5 L (80.0-98.0) fL MCH 24.5 L (27.0-33.0) pg MCHC 32.5 (31.0-35.0) g/dl RDW 14.0 (11.0-16.0) % Plt Count 328 (160-400) X10*3/uL MPV 10.0 (9.4-12.3) fL Immature Gran % (Auto) 0.3 (0.0-0.4) % Neut % (Auto) 77.8 H (45-73) % Lymph % (Auto) 12.1 L (20-40) % [place] % (Auto) 8.9 (2-11) % Eos % (Auto) 0.6 (0-4) % Baso % (Auto) 0.3 (0-2) % Lymph # (Auto) 1.5 (1.2-4.9) X10*3/uL [place] # (Auto) 1.1 (0.1-1.2) X10*3/uL Eos # (Auto) 0.1 (0.0-0.4) X10*3/uL Baso # (Auto) 0.0 (0.0-0.2) X10*3/uL Abs Immat Gran (auto) 0.04 H (0.00-0.03) X10*3/uL Absolute Neuts (auto) 9.6 H (2.0-8.3) x10*3/uL Absolute Nucleated RBC 0.000 (0.0-0.012) X10*3/uL Nucleated RBC % (auto) 0.0 (0.0-0.2) /100WBC Sodium 141 (135-145) mmol/L Potassium 3.6 (3.3-5.1) mmol/L Chloride 106 (96-108) mmol/L Carbon Dioxide 24 (22-29) mmol/L Anion Gap 15 (12-20) BUN 9 (9-16) mg/dL Creatinine 0.60 (0.5-1.4) mg/dL Estim Creat Clear Calc 86.2 Estimated GFR > 60 Random Glucose 122 H (60-115) mg/dL Lactic Acid 1.2 (0.5-2.0) mmol/L Calcium 8.6 (8.4-10.2) mg/dL Magnesium 1.9 (1.6-2.6) mg/dL Total Bilirubin 0.3 (0.0-1.0) mg/dL Direct Bilirubin 0.1 (0.0-0.5) mg/dL AST 22 (5-31) U/L ALT 27 (0-31) U/L Alkaline Phosphatase 82 (39-117) U/L Total Protein 6.5 (6.5-8.0) g/dL Albumin 3.6 (3.5-5.0) g/dL Beta HCG, Quant < 2 mIU/mL Urine Opiates Screen POSITIVE H (Not Detect) Ur Buprenorphine Scrn Not Detected (Not Detect) ng/mL Ur Oxycodone Screen Not Detected (Not Detect) ng/mL Urine Methadone Screen Not Detected (Not Detect) ng/mL Urine Fentanyl Screen POSITIVE H (Not Detect) Ur Barbiturates Screen Not Detected (Not Detect) Ur Phencyclidine Scrn Not Detected (Not Detect) Ur Amphetamines Screen Not Detected (Not Detect) U Benzodiazepines Scrn Not Detected (Not Detect) Urine Cocaine Screen POSITIVE H (Not Detect) U Marijuana (THC) Screen Not Detected (Not Detect) Independent Interpretation I performed an independent interpretation of an: Plain X-Ray Radiology Impression Discussion of test interpretation with radiology: I have reviewed the radiologist's reading. External Record Review External record reviewed: Outpatient record Social Determinants Patient?s care significantly limited by Social Determinants of Health including: Inadequate housing and Problems related to primary support group Discharge Plan Discharge Clinical Impression: Cellulitis, Acute asthma exacerbation Patient Disposition: Admitted As Inpatient Print Language: Tamazight
--- NOTE | 2025-08-15 06:55 | PC.NURSE ---
Medicated per mar, report given to SARAI Mark,
[2025-08-15 06:56] LABS: Hematocrit 36.0 % (37.0-47.0); Hemoglobin 11.7 g/dl (12.0-16.0); Imm Gran Abs Auto 0.04 X10*3/uL (0.00-0.03); Imm Gran Pct Auto 0.3 % (0.0-0.4); Lymphocytes Absolute Auto 1.5 X10*3/uL (1.2-4.9); MANUAL DIFF FLAG NO; Mean Corpuscular HGB Conc 32.5 g/dl (31.0-35.0); Mean Corpuscular Hemoglobin 24.5 pg (27.0-33.0); Mean Corpuscular Volume 75.5 fL (80.0-98.0); NRBC Abs Auto 0.000 X10*3/uL (0.0-0.012); NRBC Pct Auto 0.0 /100WBC (0.0-0.2); Platelet Count 328 X10*3/uL (160-400); Red Blood Count 4.77 X10*6/uL (4.20-5.50); White Blood Count 12.4 X10*3/uL (4.8-10.8)
--- NOTE | 2025-08-15 07:07 | PC.NURSE ---
Assumed care of patient. Pt is A+Ox4, calm, cooperative. Currently receiving a nebulizer treatment. RR even and unlabored, denies CP or SOB. C/O left pinky pain, redness, swelling. Pt not able to move Left pinky still. No other complaints.
[2025-08-15 07:10] LABS: Cannabinoid Screen Urine Not Detected (Not Detect)
[2025-08-15 07:18] LABS: Alanine Aminotransferase 27 U/L (0-31); Albumin Level 3.6 g/dL (3.5-5.0); Alkaline Phosphatase 82 U/L (39-117); Anion Gap 15 (12-20); Aspartate Amino Transferase 22 U/L (5-31); Blood Urea Nitrogen 9 mg/dL (9-16); Calcium 8.6 mg/dL (8.4-10.2); Carbon Dioxide 24 mmol/L (22-29); Chloride 106 mmol/L (96-108); Creatinine Clr Calc Pharmacy 86.2; Estimated Glomerular Filt Rate > 60; Magnesium 1.9 mg/dL (1.6-2.6); Potassium 3.6 mmol/L (3.3-5.1); Sodium 141 mmol/L (135-145); Total Protein 6.5 g/dL (6.5-8.0)
--- NOTE | 2025-08-15 08:29 | PHA.MEDREC ---
Addendum entered by Isaiah Rojas RPh 08/15/25 11:00: Reviewed by [facility] Original Note: Pharmacy Consult ? Medication Reconciliation Pharmacy has completed the medication reconciliation. Spoke with pt and she confirmed she is only taking an Albuterol inhaler as needed and Melatonin 5mg 1-2 tabs at bedtime as needed.
--- NOTE | 2025-08-15 08:53 | PC.NURSE ---
pt c/o itchiness after vancco finished, aware, giving benadryl. airway clear
--- NOTE | 2025-08-15 09:31 | PM.CNOR ---
History of Present Illness HPI Consult date: 08/15/25 Chief complaint: infection of finger Narrative: 34 yo female seen in the ED with left small finger pain and swelling. She states she thinks an insect bit her about 3 days ago. She did try to squeeze an area on the finger but nothing came out. She presented to the ED due to worsening pain and swelling. She is an active substance user. States she uses fentanyl and crack/cocaine. Denies injecting, only snorts and smokes. Last time she used was earlier this morning. Orthopedics consulted for recommendations Review of Systems Review of Systems: Yes all other systems are reviewed and are negative [facility] Past Medical History Medical History Cocaine abuse Acute asthma exacerbation Polysubstance abuse Family History Family History Maternal Uncle Cardiomyopathy Heart transplant recipient Social History Social History Household Members: None Housing: Homeless Do you presently have visiting nurse or other home services: No Alcohol intake: current Patient Tobacco Use Status: Never used Tobacco Smoked in Last 30 Days: Yes Use of substances other than those prescribed or required for medical reasons: Yes Substance Use Type: Heroin Advance Directives: No Advance Directives Information Provided: Yes Patient : No service: No Meds Allergies Allergy/AdvReac Type Severity Reaction Status Date / Time No Known Allergies Allergy Mild UNKNOWN Verified 08/15/25 06:04 Home Medications ?Medication ?Instructions ?Recorded ?Confirmed ?Last Taken ?Type melatonin 5 mg tablet 5 - 10 mg PO BEDTIME PRN Sleep 08/15/25 08/15/25 Unknown History Physical Exam Vital Signs: Vital Signs: Last Vital Signs Temp 98.4 F 08/15/25 06:03 Pulse 80 08/15/25 06:48 Resp 16 08/15/25 06:48 BP 150/92 H 08/15/25 06:03 Pulse Ox 93 08/15/25 06:03 O2 Del Method Room Air 08/15/25 06:03 BMI result Body Mass Index 17.4 Const: General: cooperative, healthy appearing, comfortable and no acute distress Extrem: Other: lt small finger swelling with diffuse redness finger is held in a flexed position pain with passive extension unable to make a fist tenderness along the flexor tendon no pain or abscess formation in the palmar aspect no pain or swelling over the dorsum of the hand Results Labs 08/15/25 06:48 08/15/25 06:48 Labs: Abnormal lab results 08/15/25 Range/Units 06:48 WBC 12.4 H (4.8-10.8) X10*3/uL Hgb 11.7 L (12.0-16.0) g/dl Hct 36.0 L (37.0-47.0) % MCV 75.5 L (80.0-98.0) fL MCH 24.5 L (27.0-33.0) pg Neut % (Auto) 77.8 H (45-73) % Lymph % (Auto) 12.1 L (20-40) % Abs Immat Gran (auto) 0.04 H (0.00-0.03) X10*3/uL Absolute Neuts (auto) 9.6 H (2.0-8.3) x10*3/uL Random Glucose 122 H (60-115) mg/dL Urine Opiates Screen POSITIVE H (Not Detect) Urine Fentanyl Screen POSITIVE H (Not Detect) Urine Cocaine Screen POSITIVE H (Not Detect) H & H 08/15/25 Range/Units 06:48 Hgb 11.7 L (12.0-16.0) g/dl Hct 36.0 L (37.0-47.0) % All other labs normal. Diagnostic results Wrist/Hand x-ray: image reviewed (IMPRESSION: Prominent soft tissue edema without evidence of fracture or malalignment. No radiopaque foreign body.) Assessment and Plan (1) Tenosynovitis of finger: Status: Acute Plan I discussed with the patient the extent of her condition. I explained options which includes iv abx along with I&D left small finger. I discussed with the patient the risk benefits and alternatives to the procedure. Risk including but not limited to ongoing infection, need for re peat surgery, stiffness, pain, loss of digit and/or injury to surrounding nerves and tissues. She does express understanding and does consent to proceed with left small finger I&D with Dr Jefferson. Patient to remain NPO. Procedures Date of Service Date of Service: 08/15/25
--- NOTE | 2025-08-15 09:40 | PC.NURSE ---
pt no longer having itchiness after benadryl, airway clear.
--- NOTE | 2025-08-15 09:44 | PC.NURSE ---
Spoke to mom, Casey @ [phone] per request of patient to provide update. Update provided.
--- NOTE | 2025-08-15 11:17 | P.CONAN_ITS ---
Documented by User: Taty Wilks NP 08/15/25 11:18 HPI - Anesthesia Eval Consult details Narrative: 34 yr old female for I&D left small finger Polysubstance use: + opioids, cocaine, fentanyl Treated for acute asthma exacerbation [facility] [place] [facility] 08/04/25 PMF Active Problems Active Problems: All Active Problems Tenosynovitis of finger (Acute) Acute asthma exacerbation (Acute) Cellulitis (Acute) Abnormal EKG (Acute) Acute hypoxemic respiratory failure (Acute) Past Medical History Medical History Cocaine abuse Acute asthma exacerbation Polysubstance abuse Family History Family History Maternal Uncle Cardiomyopathy Heart transplant recipient Social History Social History Household Members: None Housing: Homeless Do you presently have visiting nurse or other home services: No Alcohol intake: current Alcohol intake frequency: does not drink Patient Tobacco Use Status: Never used Tobacco Substance Use Type: Heroin service: No Meds Allergies Allergy/AdvReac Type Severity Reaction Status Date / Time No Known Allergies Allergy Mild UNKNOWN Verified 08/15/25 06:04 Active Medications: Current Medications Acetaminophen (Acetaminophen 325 Mg Tablet) 650 mg PO Q6H PRN PRN Reason: Pain, Mild 1-3,fever,headache Albuterol/Ipratropium (Albuterol/Iprat 2.5/0.5mg 3 Ml Ampul.Neb) 3 ml INHALE Q4H PRN PRN Reason: Shortness of Breath/Wheezing Calcium Carbonate (Calcium Carbonate 750 Mg Tab.Chew) 750 mg PO Q4H PRN PRN Reason: Heartburn Albuterol Sulfate 2.5 mg/ (Albuterol/Ipratropium 3 ml) 0 mg INHALE RQID PUMA Last Admin: 08/15/25 10:43 Dose: 5 dose Docusate Sodium (Docusate Sodium 100 Mg Capsule) 100 mg PO BID PUMA Piperacillin Sod/Tazobactam (Sod 3.375 gm/ Sodium Chloride) 50 mls @ 100 mls/hr IV Q6H PUMA Ketorolac Tromethamine (Ketorolac Tromethamine 15 Mg/Ml Vial) 15 mg IVPUSH Q6H PRN PRN Reason: Pain, Moderate(Pain Scale 4-6) Magnesium Hydroxide (Milk Of Magnesia 30 Ml Oral.Susp) 30 ml PO DAILY PRN PRN Reason: Constipation Melatonin (Melatonin 3 Mg Tablet) 6 mg PO BEDTIME PRN PRN Reason: Insomnia Methylprednisolone Sodium Succinate (Methylprednisolone Sod Succ 40 Mg/Ml Vial) 20 mg IVPUSH Q12H [facility] Last Admin: 08/15/25 11:10 Dose: 20 mg Morphine Sulfate (Morphine Sulfate 4 Mg/Ml Cartridge) 3 mg IVPUSH Q4H PRN; Protocol PRN Reason: Pain, Severe (Pain Scale 7-10) Ondansetron HCl (Ondansetron Hcl 4 Mg/2 Ml Vial) 4 mg IVPUSH Q8H PRN PRN Reason: Nausea and Vomiting Polyethylene Glycol (Polyethylene Glycol 3350 17 Gm Powd.Pack) 17 gm PO DAILY PRN PRN Reason: Constipation Senna (Sennosides 8.6 Mg Tablet) 17.2 mg PO BEDTIME [facility] Sodium Chloride (0.9 % Sodium Chloride Flush 3 Ml Syringe) 3 ml IVFLUSH QSHIFT [facility] Home Medications ?Medication ?Instructions ?Recorded ?Confirmed ?Last Taken ?Type melatonin 5 mg tablet 5 - 10 mg PO BEDTIME PRN Sle ep 08/15/25 08/15/25 Unknown History Exam Height,Weight and Vital Signs: Height 5 ft 1 in Weight 41.73 kg Last Vital Signs Temp 98.4 F 08/15/25 06:03 Pulse 94 08/15/25 11:11 Resp 18 08/15/25 11:11 BP 105/60 08/15/25 11:11 Pulse Ox 95 08/15/25 11:11 O2 Del Method Room Air 08/15/25 11:11 Pertinent Lab Results Pertinent Lab Results: Laboratory Tests 08/15/25 06:48 WBC 12.4 H RBC 4.77 Hgb 11.7 L Hct 36.0 L MCV 75.5 L MCH 24.5 L MCHC 32.5 RDW 14.0 Plt Count 328 MPV 10.0 Immature Gran % (Auto) 0.3 Neut % (Auto) 77.8 H Lymph % (Auto) 12.1 L [place] % (Auto) 8.9 Eos % (Auto) 0.6 Baso % (Auto) 0.3 Lymph # (Auto) 1.5 [place] # (Auto) 1.1 Eos # (Auto) 0.1 Baso # (Auto) 0.0 Abs Immat Gran (auto) 0.04 H Absolute Neuts (auto) 9.6 H Absolute Nucleated RBC 0.000 Nucleated RBC % (auto) 0.0 Sodium 141 Potassium 3.6 Chloride 106 Carbon Dioxide 24 Anion Gap 15 BUN 9 Creatinine 0.60 Estim Creat Clear Calc 86.2 Estimated GFR > 60 Random Glucose 122 H Lactic Acid 1.2 Calcium 8.6 Magnesium 1.9 Total Bilirubin 0.3 Direct Bilirubin 0.1 AST 22 ALT 27 Alkaline Phosphatase 82 Total Protein 6.5 Albumin 3.6 Beta HCG, Quant < 2 Urine Opiates Screen POSITIVE H Ur Buprenorphine Scrn Not Detected Ur Oxycodone Screen Not Detected Urine Methadone Screen Not Detected Urine Fentanyl Screen POSITIVE H Ur Barbiturates Screen Not Detected Ur Phencyclidine Scrn Not Detected Ur Amphetamines Screen Not Detected U Benzodiazepines Scrn Not Detected Urine Cocaine Screen POSITIVE H U Marijuana (THC) Screen Not Detected Documented by User: Daquan Murray MD 08/15/25 17:25 [facility] Past Medical History Medical History Cocaine abuse Acute asthma exacerbation Polysubstance abuse Family History Family History Maternal Uncle Cardiomyopathy Heart transplant recipient Family history of problems with anesthesia: No Surgical History History of Problems with Anesthesia: No Social History Social History Household Members: None Housing: Homeless Do you presently have visiting nurse or other home services: No Alcohol intake: current Alcohol intake frequency: does not drink Patient Tobacco Use Status: Never used Tobacco Substance Use Type: Heroin service: No Meds Allergies Allergy/AdvReac Type Severity Reaction Status Date / Time No Known Allergies Allergy Mild UNKNOWN Verified 08/15/25 06:04 Home Medications ?Medication ?Instructions ?Recorded ?Confirmed ?Last Taken ?Type melatonin 5 mg tablet 5 - 10 mg PO BEDTIME PRN Sle ep 08/15/25 08/15/25 Unknown History Exam Airway Loose/Missing/Broken Teeth: Yes Assessment and Plan Assessment Anesthesia Assessment: Anesthesia Plan Discussed and Chart Reviewed Final Anesthetic Review Family History of Problems with Anesthesia: No History of Problems with Anesthesia: No NPO: Yes ASA Class: III Final Preanesthetic Review: No Changes in Pt Med Stat, Meds/Allgs Chart Reviewed, Consent Obtained/Reviewed and Anes Risks/Benef Reviewed Patient Risk: Intermediate Procedure Risk: Low Anesthetic Plan Anesthetic Plan: MAC: and Regional Block Disposition: Standard PACU
--- NOTE | 2025-08-15 11:33 | PC.NURSE ---
Pt appears tired, awakes to verbal stimuli. Morphine held at this time d/t pt being tired and BP on the lower side. Pt medicated with torodol for pain. Pt is responsive to verbal stimuli, wakes up and responds and then falls back asleep. RR even and unlabored, no visible s/s of distress.
--- NOTE | 2025-08-15 12:54 | P.HPHOSP_ITS ---
History of Present Illness Date of Service: 08/15/25 Chief Complaint: Left little finger swelling and pain 34-year-old female patient with past medical history significant for mild intermittent asthma and polysubstance use presented to [place] ED due to left little finger diffuse swelling and pain, as per patient 3 days ago she felt there was something in her finger question insect bite, she tried to squeeze it out and subsequently developed redness, swelling and pain. Patient denies fever, she is unable to move her finger. Patient also complaining of shortness of breath, wheezing and cough productive of clear phlegm has tried home inhalers every few hours with no relief in symptoms, subsequently ran out of her inhalers. Patient denies IV drug use , she mainly uses crack cocaine via smoking and also uses 2-3 bags of fentanyl intranasally, in ED patient treated with IV Zosyn and IV vancomycin soon after vancomycin was administered patient developed itching and mild hyperemia of face neck and upper extremity treated with Benadryl with good affect. Patient received 1 dose of methadone in ED. She also receive 1 dose of albuterol updraft and noted to have persistent symptoms. Labs showed WBC count 12.4, U tox screen positive for opiates and cocaine. Pulse 105, respiratory rate normal, recent chest x-ray 08/04 showed no acute abnormality, x-ray left little finger showed prominent soft tissue edema without evidence of fracture or malalignment, no radiopaque foreign body. Review of Systems 2 Review of Systems: General no headache no dizziness no fever chills. CVS no chest pain, no palpitation. Respiratory shortness of breath, wheeze and productive cough Gastrointestinal no nausea no vomiting, no abdominal pain no urgency, no frequency All other system reviewed and are negative [facility] Medical History Cocaine abuse Acute asthma exacerbation Polysubstance abuse Family History Maternal Uncle Cardiomyopathy Heart transplant recipient Social History Household Members: None Housing: Homeless Do you presently have visiting nurse or other home services: No Alcohol intake: current Patient Tobacco Use Status: Never used Tobacco Smoked in Last 30 Days: Yes Use of substances other than those prescribed or required for medical reasons: Yes Substance Use Type: Heroin Advance Directives: No Advance Directives Information Provided: Yes Patient : No service: No Meds Allergies Allergy/AdvReac Type Severity Reaction Status Date / Time No Known Allergies Allergy Mild UNKNOWN Verified 08/15/25 06:04 Active Medications: Current Medications Acetaminophen (Acetaminophen 325 Mg Tablet) 650 mg PO Q6H PRN PRN Reason: Pain, Mild 1-3,fever,headache Albuterol/Ipratropium (Albuterol/Iprat 2.5/0.5mg 3 Ml Ampul.Neb) 3 ml INHALE Q4H PRN PRN Reason: Shortness of Breath/Wheezing Calcium Carbonate (Calcium Carbonate 750 Mg Tab.Chew) 750 mg PO Q4H PRN PRN Reason: Heartburn Albuterol Sulfate 2.5 mg/ (Albuterol/Ipratropium 3 ml) 0 mg INHALE [facility] Last Admin: 08/15/25 10:43 Dose: 5 dose Docusate Sodium (Docusate Sodium 100 Mg Capsule) 100 mg PO BID [facility] Piperacillin Sod/Tazobactam (Sod 3.375 gm/ Sodium Chloride) 50 mls @ 100 mls/hr IV Q6H [facility] Last Admin: 08/15/25 12:37 Dose: 100 mls/hr Ketorolac Tromethamine (Ketorolac Tromethamine 15 Mg/Ml Vial) 15 mg IVPUSH Q6H PRN PRN Reason: Pain, Moderate(Pain Scale 4-6) Last Admin: 08/15/25 11:31 Dose: 15 mg Magnesium Hydroxide (Milk Of Magnesia 30 Ml Oral.Susp) 30 ml PO DAILY PRN PRN Reason: Constipation Melatonin (Melatonin 3 Mg Tablet) 6 mg PO BEDTIME PRN PRN Reason: Insomnia Methylprednisolone Sodium Succinate (Methylprednisolone Sod Succ 40 Mg/Ml Vial) 20 mg IVPUSH Q12H [facility] Last Admin: 08/15/25 11:10 Dose: 20 mg Morphine Sulfate (Morphine Sulfate 4 Mg/Ml Cartridge) 3 mg IVPUSH Q4H PRN; Protocol PRN Reason: Pain, Severe (Pain Scale 7-10) Last Admin: 08/15/25 12:37 Dose: 3 mg Ondansetron HCl (Ondansetron Hcl 4 Mg/2 Ml Vial) 4 mg IVPUSH Q8H PRN PRN Reason: Nausea and Vomiting Polyethylene Glycol (Polyethylene Glycol 3350 17 Gm Powd.Pack) 17 gm PO DAILY PRN PRN Reason: Constipation Senna (Sennosides 8.6 Mg Tablet) 17.2 mg PO BEDTIME PUMA Sodium Chloride (0.9 % Sodium Chloride Flush 3 Ml Syringe) 3 ml IVFLUSH QSHIFT PUMA Home Medications ?Medication ?Instructions ?Recorded ?Confirmed ?Last Taken ?Type melatonin 5 mg tablet 5 - 10 mg PO BEDTIME PRN Sle ep 08/15/25 08/15/25 Unknown History Physical Exam 2 Vital Signs and Narrative: Vital Signs: Last Vital Signs Temp 98.4 F 08/15/25 06:03 Pulse 73 08/15/25 12:39 Resp 18 08/15/25 12:39 BP 117/38 L 08/15/25 12:39 Pulse Ox 98 08/15/25 12:39 O2 Del Method Room Air 08/15/25 12:39 BMI result Body Mass Index 17.4 Const: Other: General mild distress due to generalized itching, awake alert x3 Neck supple CVS regular rate rhythm, Respiratory lungs bilateral expiratory wheeze. Gastrointestinal abdomen soft, non tender, bowel sounds audible, no guarding , no rigidity. Extremities no LE edema. Neuro non focal , moving all 4 extremity speech clear. Skin mild facial neck and upper extremity erythema, no hives Left little finger diffuse swelling and tenderness extending from base to distal phalanx, limited range of flexion and extension, no open wounds, no fluctuation. Psych appropriate affect Results Labs 08/15/25 06:48 08/15/25 06:48 Labs: Laboratory Results - last 24 hr 08/15/25 06:48 MCV 75.5 L MCH 24.5 L MCHC 32.5 RDW 14.0 Plt Count 328 MPV 10.0 Immature Gran % (Auto) 0.3 Neut % (Auto) 77.8 H Lymph % (Auto) 12.1 L [place] % (Auto) 8.9 Eos % (Auto) 0.6 Baso % (Auto) 0.3 Lymph # (Auto) 1.5 [place] # (Auto) 1.1 Eos # (Auto) 0.1 Baso # (Auto) 0.0 Abs Immat Gran (auto) 0.04 H Absolute Neuts (auto) 9.6 H Absolute Nucleated RBC 0.000 Nucleated RBC % (auto) 0.0 Anion Gap 15 Estim Creat Clear Calc 86.2 Estimated GFR > 60 Random Glucose 122 H Lactic Acid 1.2 Calcium 8.6 Magnesium 1.9 Total Bilirubin 0.3 Direct Bilirubin 0.1 AST 22 ALT 27 Alkaline Phosphatase 82 Total Protein 6.5 Albumin 3.6 Beta HCG, Quant < 2 Urine Opiates Screen POSITIVE H Ur Buprenorphine Scrn Not Detected Ur Oxycodone Screen Not Detected Urine Methadone Screen Not Detected Urine Fentanyl Screen POSITIVE H Ur Barbiturates Screen Not Detected Ur Phencyclidine Scrn Not Detected Ur Amphetamines Screen Not Detected U Benzodiazepines Scrn Not Detected Urine Cocaine Screen POSITIVE H U Marijuana (THC) Screen Not Detected Assessment and Plan (1) Cellulitis: Qualifiers: Laterality: left Site of cellulitis: extremity Site of cellulitis of extremity: finger Qualified Code(s): L03.012 - Cellulitis of left finger Status: Acute (2) Acute asthma exacerbation: Qualifiers: Asthma persistence: persistent Asthma severity: moderate Qualified Code(s): J45.41 - Moderate persistent asthma with (acute) exacerbation Status: Acute (3) Substance use disorder: Status: Acute Plan Sepsis due to Left little finger cellulitis/underlying abscess/tenosynovitis WBC 12.4, tachycardia, no fevers X-ray showed no foreign body, showed prominent soft tissue edema without evidence of fracture or malalignment. Admit to medical service on IV Zosyn, follow blood cultures Developed generalized itch and mild facial and neck hyperemia after finishing IV vanco treated with Benadryl with good response check MRSA nares Oxycodone/as needed IV Toradol for pain control Homeless Orthopedic consultation for possible I and D. Acute exacerbation of intermittent asthma Patient used home albuterol inhalers frequently in last 24 hours, with no improvement in his symptoms, patient was seen on 08/04 for symptoms of shortness of breath and was given a prescription of albuterol and steroids but patient did not pick her prescriptions. DuoNeb q.i.d. and IV Solu Medrol b.i.d. Strongly recommend to abstain from snorting illicit drugs likely cause of her symptoms. BMI 17.4 underweight,will consult art class model. Substance use disorder, patient admits to using crack cocaine via smoking and also uses fentanyl intranasally, she denies IVDU. She wants to be started on methadone. U tox positive for cocaine and opiates. In ED patient treated with methadone 30 mg x1 Will consult addiction team Homeless; social service and addiction team consult for discharge planning. Full code DVT prophylaxis low risk In my clinical judgment patient will require 2 midnight hospitalization for treatment of left finger cellulitis requiring IV antibiotic and expert consultation, also require treatment for asthma exacerbation, substance use disorder and low BMI. Quality Stroke Does the patient have a stroke diagnosis?: No VTE Prior VTE?: No VTE Risk Level:: Medical - low VTE Device Contraindication: Treatment Not Indicated VTE Drug Contraindication: Treatment Not Indicated
--- NOTE | 2025-08-15 14:26 | PC.NURSE ---
pt off to short stay
--- NOTE | 2025-08-15 14:29 | HO.NURTONUR ---
34 F presents to ED d/t Red and swollen left pinky finger, possibly from an insect bit that she squeezed. A+OX4, calm, cooperative. C/o pain/swelling at the site. Pt also has asthma, recieved a couple of breathing treatments here d/t asthma exacerbation, now doing better, ambulates to bathroom and is on room air. 22G RAC. Admit for asthma exacerbation and infection of L pinky finger, off to short stay Finger XR: Prominent soft tissue edema without evidence of fracture or malalignment. No radiopaque foreign body. Labs: WBC 12.4, hgb 11.7, hct 36, tox screen + opiates, + fentanyl, +cocaine
--- NOTE | 2025-08-15 14:55 | PC.NURSE ---
iv patent pt when awake a/ox4 resp easy and reg ls clear with nonproductive cough aware careplan sleepy arousable denies pain at this time npo after mn
--- NOTE | 2025-08-15 15:34 | PC.NURSE ---
mother jessica called aware patient going to surgery will invisit in pts room after surgery patient aware
--- NOTE | 2025-08-15 15:54 | MHC.SHP ---
Pre-Procedural Eval Section A - 24 Hr Update-Section A only Date of Service: 08/15/25 The patient is an INPATIENT: No Changes since office visit: No Cold of Flu in the past 2 weeks, No New Medical Problems, No Changes in Medication and No Patient answered all questions The patient has been examined within 24 hours of the surgical procedure. The History & Physical has been completed within 30 days and I have reviewed it.: Yes Section B - Complete if H&P > 30 days Chief Complaint: infection of finger Allergies: Allergies Allergy/AdvReac Type Severity Reaction Status Date / Time No Known Allergies Allergy Mild UNKNOWN Verified 08/15/25 06:04 Exam Exam Comment: Patient was seen and evaluated in preop hold. She has swelling and redness of the left small finger. It is held in flexion at the PIP joint. Tenderness over the volar aspect of the small finger, proximal phalanx, middle phalanx and PIP joint. Mild tenderness over the A1 deysi. Pain with passive extension Plan I have reviewed the history and physical and performed a pertinent physical examination on my patient. No changes have occurred unless specified. Assessment and plan: 1. Left small finger flexor tenosynovitis I educated the patient about this condition discussed operative and non operative treatment options. I am recommending surgery. The patient agrees. The risks and benefits of operative treatment were discussed with the patient and the patient wishes to proceed with surgery. These risks include, but are not limited to risk of damage to blood vessels, nerves, tendons, infection, recurrence, incomplete relief of preoperative symptoms, persistent pain, possible need for further surgery and the risks associated with regional blocks and anesthesia. The plan is to take the patient to the operating room today for the following procedures: 1. Left small finger irrigation and debridement 2. [ ] All of the preoperative paperwork including the consent was filled out today. All the patient's questions were answered. Time Spent With Patient Time: Total time managing care of this patient today ____ minutes.
--- NOTE | 2025-08-15 15:58 | W.PM.OPN ---
Operative Note Operative Note Date of Service: 08/15/25 Narrative: Operative Note Narrative: Preop diagnosis: 1. Left small finger infection Postop diagnosis: 1. Left small finger septic PIP joint 2. Left small finger flexor infection, possible flexor tenosynovitis Procedure: 1. Left small finger I and D of flexor tendon sheath 2. Left small finger I&D of PIP joint Surgeon: Gracie Jefferson MD Russian Language Professor: None Anesthesia: Regional block plus MAC Findings: Cloudy watery fluid found in the subcutaneous tissues on the volar aspect of the small finger at the proximal and middle phalanx levels. Cultures were obtained. The flexor tendon sheath was opened at the A1 and A3 pulleys. No obvious purulence. I then opened the dorsal aspect of the PIP joint and found some white, more creamy purulence within the PIP joint itself. Cultures were obtained from the PIP joint as well Implants: None Tourniquet time: 22 minutes EBL: 5.0 ml Specimen: Culture of subcutaneous fluid over the volar aspect of the small finger. Culture also taken from the PIP joint of the small finger Drains: None Complications: None Disposition: Brought to the recovery room in stable condition Plan: Admit back to floor for IV antibiotics. Dressing change by Orthopedics in 1-2 days, removal of drains as indicated. Daily dressing changes by nursing after that should be sufficient. Check cultures and adjust antibiotics OT if difficulty moving fingers in 1-2 days. Indications: The patient is a 34 year old woman with a painful swollen left small finger worrisome for flexor tenosynovitis. She does have a drug use history and poor dentition. No wounds about the small finger. . The risks and benefits of operative treatment, including but not limited to risk of damage to blood vessels, nerves, tendons, infection, recurrence, persistent pain or numbness, incomplete resolution of preoperative symptoms, or need for further surgery were discussed with the patient and they wished to proceed with surgery. Procedure: Once consent was obtained patient was brought back to the operating suite and placed in the operating table in a supine position. A regional block was performed by the anesthesia team and anesthesia was administered by the anesthesia team. A tourniquet was applied to the proximal aspect of the left upper extremity and the limb was prepped and draped in a standard surgical fashion. The limb was elevated exsanguinated from the wrist to the elbow with Esmarch bandage and the tourniquet inflated to 250 mm of mercury for a total tourniquet time of 22 minutes. I began with a Silke incision over the volar aspect of the left small finger proximal and middle phalanxes. The incision was made through the skin to the subcutaneous tissues using a 15. Blade. I then dissected down into the subcutaneous tissues and down to the flexor tendon sheath. There was some cloudy watery fluid in this area and this was cultured. The flexor tendon sheath was opened at the A3 deysi. I then made an oblique incision over the A1 deysi and dissected down to the A1 deysi. I made a longitudinal incision through the A1 deysi exposing the flexor tendon sheath. I did not see any obvious purulence within the flexor tendon sheath. That being said I copiously irrigated both the volar tissues of the small finger, and the flexor tendon sheath using a 10 mL syringe and an Angiocath. The skin edges were loosely closed using some 5 0 Prolene suture. I wanted to be sure that we were not missing anything and decided to open up the PIP joint using a 1.2 cm longitudinal incision just ulnar to the position of the central slip extensor tendon. The incision was made through the skin to the subcutaneous tissues. The patient was moving so I did add a digital block using about 5 mL of some 1% lidocaine with epinephrine. I then continued with my I and D of the PIP joint. I made a longitudinal incision just ulnar to the central slip through the capsule of the PIP joint. Here we found some white opaque fluid consistent with purulence within the PIP joint. Cultures were taken. The IP joint was then copiously irrigated with normal saline using a 10 mL syringe and an Angiocath. The skin incision was then loosely closed with a single 5 0 Prolene suture. At this point the tourniquet was deflated and hemostasis obtained with a brief period of local pressure . A sterile dressing was then applied. The patient appears to have tolerated the procedure well and with no complications. All digits were well vascularized conclusion of the case.
--- NOTE | 2025-08-15 15:59 | PC.NURSE ---
WHEN PATIENT SLEEPING SPO2 DROPS TO LOW 90S [id number] RESP EASY AND REG DR STEWART AT BEDSIDE CONSENT SIGNED
[2025-08-15 16:21] LABS: MRSA Nasal PCR NEGATIVE (Negative); SA Nasal PCR POSITIVE (Negative)
[2025-08-15] MEDS: Albuterol/Iprat 2.5/0.5MG 3 ML AMPUL.NEB INHALE (18:42)
[2025-08-15] MEDS: 0.9 % Sodium Chloride Flush 3 ML SYRINGE IVFLUSH (22:54)
[2025-08-16] VITALS (9 sets, daily range): BP systolic 122–130; BP diastolic 62–81; PULSE 50–98; RESP 14–18; TEMP 36.2–36.7; O2SAT 94–99; BMI 17.4
[2025-08-16] MEDS: Albuterol/Iprat 2.5/0.5MG 3 ML AMPUL.NEB INHALE ×3 (01:36→19:38)
--- NOTE | 2025-08-16 01:44 | PC.NURSE ---
Pt reporting feeling restless. This RN observed pt tossing and turning in bed. Pt requested breathing tx, RT came to bedside to admin DuoNeb. notified. 0.5 mg ativan ordered and administered.
[2025-08-16] MEDS: 0.9 % Sodium Chloride Flush 3 ML SYRINGE IVFLUSH ×3 (07:28→22:35)
--- NOTE | 2025-08-16 08:52 | HO.POSTANES ---
Post Anesthesia Evaluation Post Anesthesia Evaluation Date of Service: 08/16/25 Vital Signs: Vital Signs Temp Pulse Resp BP Pulse Ox O2 Del Method 08/16/25 07:26 97.1 F 88 14 130/80 94 Room Air 08/16/25 06:05 98.1 F 82 18 130/77 95 Room Air 08/16/25 03:55 16 08/16/25 02:55 80 18 08/16/25 01:37 98 16 Anesthesia: Monitored Mental Status: Sedated (sleeping) Pain Control: Satisfactory Nausea/Vomiting: None Hydration: Adequate Anesthesia-Related Issues: No Anes. Related Issues
[2025-08-16] MEDS: methADONE HCl 20 MG/2 ML ORAL.CONC 40 MG PO (09:26)
--- NOTE | 2025-08-16 09:37 | P.PNIM_ITS ---
Subjective Subjective Date of Service: 08/16/25 Interval History: f/u on finger abscess s/p I and asthma exacerbation, improvint Physical Exam 2 Vital Signs: Vital Signs: Last Vital Signs Temp 97.1 F 08/16/25 07:26 Pulse 88 08/16/25 07:26 Resp 14 08/16/25 07:26 BP 130/80 08/16/25 07:26 Pulse Ox 94 08/16/25 07:26 O2 Del Method Room Air 08/16/25 07:26 O2 Flow Rate 2 08/15/25 17:40 BMI result Body Mass Index 17.4 Const: Other: General mild distress due to generalized itching, awake alert x3 Neck supple CVS regular rate rhythm, Respiratory lungs, faint wheezing Gastrointestinal abdomen soft, non tender, bowel sounds audible, no guarding , no rigidity. Extremities no LE edema. Neuro non focal , moving all 4 extremity speech clear. Skin post I and D dressing on left finger/hand intact Psych appropriate affect Objective Data Active Medications Acetaminophen (Acetaminophen 325 Mg Tablet) 650 mg PO Q6H PRN PRN Reason: Pain, Mild 1-3,fever,headache Albuterol/Ipratropium (Albuterol/Iprat 2.5/0.5mg 3 Ml Ampul.Neb) 3 ml INHALE Q4H PRN PRN Reason: Shortness of Breath/Wheezing Last Admin: 08/16/25 01:36 Dose: 3 ml Documented By: CLARK Albuterol/Ipratropium (Albuterol/Iprat 2.5/0.5mg 3 Ml Ampul.Neb) 3 ml INHALE QID [facility] Last Admin: 08/16/25 08:10 Dose: Not Given Documented By: NADIA Non-Admin Reason: Patient Asleep Calcium Carbonate (Calcium Carbonate 750 Mg Tab.Chew) 750 mg PO Q4H PRN PRN Reason: Heartburn Diphenhydramine HCl (Diphenhydramine Hcl 25 Mg Capsule) 25 mg PO Q6H PRN PRN Reason: itching. Docusate Sodium (Docusate Sodium 100 Mg Capsule) 100 mg PO BID [facility] Last Admin: 08/16/25 07:28 Dose: 100 mg Documented By: ANNE MARIE Piperacillin Sod/Tazobactam (Sod 3.375 gm/ Sodium Chloride) 50 mls @ 100 mls/hr IV Q6H [facility] Last Infusion: 08/16/25 06:46 Dose: Infused Documented By: JIMMY Ketorolac Tromethamine (Ketorolac Tromethamine 15 Mg/Ml Vial) 15 mg IVPUSH Q6H PRN PRN Reason: Pain, Moderate(Pain Scale 4-6) Last Admin: 08/16/25 01:12 Dose: 15 mg Documented By: JIMMY Magnesium Hydroxide (Milk Of Magnesia 30 Ml Oral.Susp) 30 ml PO DAILY PRN PRN Reason: Constipation Melatonin (Melatonin 3 Mg Tablet) 6 mg PO BEDTIME PRN PRN Reason: Insomnia Last Admin: 08/16/25 01:13 Dose: 6 mg Documented By: JIMMY Methylprednisolone Sodium Succinate (Methylprednisolone Sod Succ 40 Mg/Ml Vial) 20 mg IVPUSH Q12H [facility] Last Admin: 08/15/25 22:52 Dose: 20 mg Documented By: JIMMY Morphine Sulfate (Morphine Sulfate 4 Mg/Ml Cartridge) 3 mg IVPUSH Q4H PRN; Protocol PRN Reason: Pain, Severe (Pain Scale 7-10) Last Admin: 08/15/25 12:37 Dose: 3 mg Documented By: JADA Naloxone HCl (Naloxone Hcl 0.4 Mg/Ml Vial) 0.04 mg IVPUSH Q5M PRN PRN Reason: Excessive sedation or RR < 8 Ondansetron HCl (Ondansetron Hcl 4 Mg/2 Ml Vial) 4 mg IVPUSH Q8H PRN PRN Reason: Nausea and Vomiting Polyethylene Glycol (Polyethylene Glycol 3350 17 Gm Powd.Pack) 17 gm PO DAILY PRN PRN Reason: Constipation Senna (Sennosides 8.6 Mg Tablet) 17.2 mg PO BEDTIME [facility] Last Admin: 08/15/25 20:34 Dose: 17.2 mg Documented By: JIMMY Sodium Chloride (0.9 % Sodium Chloride Flush 3 Ml Syringe) 3 ml IVFLUSH QSHIFT [facility] Last Admin: 08/16/25 07:28 Dose: 3 ml Documented By: ANNE MARIE Trazodone HCl (Trazodone Hcl 50 Mg Tablet) 50 mg PO BEDTIME PRN PRN Reason: Sleep Last Admin: 08/15/25 20:35 Dose: 50 mg Documented By: JIMMY Labs 08/15/25 06:48 08/15/25 06:48 Labs: Laboratory Results - last 24 hr 08/15/25 15:01 Nasal Screen MRSA (PCR) NEGATIVE Nasal S. aureus Screen POSITIVE A Nasal MRSA/S.aureus Interp SEE NOTE Microbiology Microbiology Results: Microbiology 08/15/25 06:38 Blood Culture - Preliminary Blood - Venous No growth after 24 hours. 08/15/25 06:48 Blood Culture - Preliminary Blood - Venous No growth after 24 hours. 08/15/25 17:04 Gram Stain - Final Finger Left Little 08/15/25 17:04 Gram Stain - Final Finger Left Little Assessment and Plan (1) Cellulitis: Status: Acute (2) Tenosynovitis of finger: Status: Acute (3) Acute asthma exacerbation: Status: Acute Plan Sepsis due to Left little finger cellulitis/underlying abscess/tenosynovitis, no OM Sepsis resolved, +MRSA nasal scree s/p I and D by ortho yesterday On Zosyn, add Doxy oxy + toradol for pain Acute exacerbation of intermittent asthma Patient used home albuterol inhalers frequently in last 24 hours, with no improvement in his symptoms, patient was seen on 08/04 for symptoms of shortness of breath and was given a prescription of albuterol and steroids but patient did not pick her prescriptions. DuoNeb q.i.d. and IV Solu Medrol b.i.d, change to po prednisone at [place] Strongly recommend to abstain from snorting illicit drugs likely cause of her symptoms. BMI 17.4 underweight consult field administrator. Substance use disorder, patient admits to using crack cocaine via smoking and also uses fentanyl intranasally, she denies IVDU. She wants to be started on methadone. U tox positive for cocaine and opiates. In ED patient treated with methadone 30 mg x1 addiction team consult Homeless; social service and addiction team consult for discharge planning. Full code DVT prophylaxis low risk, early ambulation In my clinical judgment patient will require 2 midnight hospitalization for treatment of left finger cellulitis requiring IV antibiotic and expert consultation, also require treatment for asthma exacerbation, substance use disorder and low BMI. Quality Stroke Does the patient have a stroke diagnosis?: No VTE Prior VTE?: No VTE Risk Level:: Medical - low VTE Device Contraindication: Treatment Not Indicated VTE Drug Contraindication: Treatment Not Indicated
--- NOTE | 2025-08-16 10:51 | HO.ADDICT_ITS ---
History of Present Illness Date of Service: 08/16/2025 Chief Complaint: infection of finger Reason for Consult: OUD Sources of Information: patient interviewed and chart reviewed HPI Narrative: Patient is a 34 year old female medically admitted with cellulitis of the finger. While in ED, patient reported opiate withdrawal sx and requested to be started on MOUD. Methadone 30mg administered with good effect. Today, methadone 40mg ordered and patient seen in follow. Upon arrival, patient is sleeping, but wakes to voice. She reports methadone has been helpful, but she still does not feel great. She appears slightly diaphoretic. Reporting chills, nausea and body aches. She reports she has been using about a bundle of fentanyl IN, daily. Reports she has previously been engaged in treatment for OUD, and was prescribed methadone 45mg daily--unclear when this was. Also reports smoking crack cocaine. Denies any IVDU Denies any other substance use including alcohol Medical Evaluation Reviewed: Yes Review of Systems Constitutional: Reports as per HPI Diagnostics Vital Signs (24Hr): Vital Signs - 24 hr 08/15/25 11:11 08/15/25 12:21 08/15/25 12:39 Temperature Pulse Rate 94 75 73 Respiratory Rate 18 18 18 Blood Pressure 105/60 109/61 117/38 L Pulse Oximetry 95 97 98 Oxygen Delivery Method Room Air Room Air Oxygen Flow Rate 08/15/25 14:36 08/15/25 17:25 08/15/25 17:30 Temperature 98 F 97.5 F Pulse Rate 63 80 80 Respiratory Rate 18 17 17 Blood Pressure 113/60 105/60 108/59 L Pulse Oximetry 96 95 97 Oxygen Delivery Method Room Air Room Air Nasal Cannula with ETCO2 Oxygen Flow Rate 3 08/15/25 17:35 08/15/25 17:40 08/15/25 18:14 Temperature 97.5 F 97.0 F Pulse Rate 79 78 75 Respiratory Rate 20 20 20 Blood Pressure 115/60 117/60 122/71 Pulse Oximetry 97 98 99 Oxygen Delivery Method Nasal Cannula with ETCO2 Nasal Cannula with ETCO2 Room Air Oxygen Flow Rate 2 2 08/15/25 18:44 08/15/25 20:01 08/16/25 01:37 Temperature 99.4 F Pulse Rate 93 107 H 98 Respiratory Rate 18 18 16 Blood Pressure 128/69 Pulse Oximetry 97 Oxygen Delivery Method Room Air Oxygen Flow Rate 08/16/25 02:55 08/16/25 03:55 08/16/25 06:05 Temperature 98.1 F Pulse Rate 80 82 Respiratory Rate 18 16 18 Blood Pressure 130/77 Pulse Oximetry 95 Oxygen Delivery Method Room Air Oxygen Flow Rate 08/16/25 07:26 Temperature 97.1 F Pulse Rate 88 Respiratory Rate 14 Blood Pressure 130/80 Pulse Oximetry 94 Oxygen Delivery Method Room Air Oxygen Flow Rate BMI result Body Mass Index 17.4 Labs 08/15/25 06:48 08/15/25 06:48 Labs: Laboratory Results - last 48 hr 08/15/25 08/15/25 06:48 15:01 WBC 12.4 H RBC 4.77 Hgb 11.7 L Hct 36.0 L MCV 75.5 L MCH 24.5 L MCHC 32.5 RDW 14.0 Plt Count 328 MPV 10.0 Immature Gran % (Auto) 0.3 Neut % (Auto) 77.8 H Lymph % (Auto) 12.1 L Wilkin % (Auto) 8.9 Eos % (Auto) 0.6 Baso % (Auto) 0.3 Lymph # (Auto) 1.5 Wilkin # (Auto) 1.1 Eos # (Auto) 0.1 Baso # (Auto) 0.0 Abs Immat Gran (auto) 0.04 H Absolute Neuts (auto) 9.6 H Absolute Nucleated RBC 0.000 Nucleated RBC % (auto) 0.0 Sodium 141 Potassium 3.6 Chloride 106 Carbon Dioxide 24 Anion Gap 15 BUN 9 Creatinine 0.60 Estim Creat Clear Calc 86.2 Estimated GFR > 60 Random Glucose 122 H Lactic Acid 1.2 Calcium 8.6 Magnesium 1.9 Total Bilirubin 0.3 Direct Bilirubin 0.1 AST 22 ALT 27 Alkaline Phosphatase 82 Total Protein 6.5 Albumin 3.6 Beta HCG, Quant < 2 Nasal Screen MRSA (PCR) NEGATIVE Nasal S. aureus Screen POSITIVE A Nasal MRSA/S.aureus Interp SEE NOTE Urine Opiates Screen POSITIVE H Ur Buprenorphine Scrn Not Detected Ur Oxycodone Screen Not Detected Urine Methadone Screen Not Detected Urine Fentanyl Screen POSITIVE H Ur Barbiturates Screen Not Detected Ur Phencyclidine Scrn Not Detected Ur Amphetamines Screen Not Detected U Benzodiazepines Scrn Not Detected Urine Cocaine Screen POSITIVE H U Marijuana (THC) Screen Not Detected Mental Status Exam Mental Status Exam Level of Consciousness: Drowsy Patient Behavior: Appropriate Affect Description: Calm Speech Pattern: Clear Thought Process: Intact Thought Content: positive for Intact Judgement: Good Medications Medications Current Medications Acetaminophen (Acetaminophen 325 Mg Tablet) 650 mg PO Q6H PRN PRN Reason: Pain, Mild 1-3,fever,headache Albuterol/Ipratropium (Albuterol/Iprat 2.5/0.5mg 3 Ml Ampul.Neb) 3 ml INHALE Q4H PRN PRN Reason: Shortness of Breath/Wheezing Last Admin: 08/16/25 01:36 Dose: 3 ml Albuterol/Ipratropium (Albuterol/Iprat 2.5/0.5mg 3 Ml Ampul.Neb) 3 ml INHALE QID [facility] Last Admin: 08/16/25 08:10 Dose: Not Given Calcium Carbonate (Calcium Carbonate 750 Mg Tab.Chew) 750 mg PO Q4H PRN PRN Reason: Heartburn Diphenhydramine HCl (Diphenhydramine Hcl 25 Mg Capsule) 25 mg PO Q6H PRN PRN Reason: itching. Docusate Sodium (Docusate Sodium 100 Mg Capsule) 100 mg PO BID [facility] Last Admin: 08/16/25 07:28 Dose: 100 mg Piperacillin Sod/Tazobactam (Sod 3.375 gm/ Sodium Chloride) 50 mls @ 100 mls/hr IV Q6H [facility] Last Infusion: 08/16/25 06:46 Dose: Infused Doxycycline Hyclate 100 mg/ (Sodium Chloride) 250 mls @ 166.67 mls/hr IV Q12H [facility] Last Admin: 08/16/25 10:36 Dose: 166.67 mls/hr Ketorolac Tromethamine (Ketorolac Tromethamine 15 Mg/Ml Vial) 15 mg IVPUSH Q6H PRN PRN Reason: Pain, Moderate(Pain Scale 4-6) Last Admin: 08/16/25 01:12 Dose: 15 mg Magnesium Hydroxide (Milk Of Magnesia 30 Ml Oral.Susp) 30 ml PO DAILY PRN PRN Reason: Constipation Melatonin (Melatonin 3 Mg Tablet) 6 mg PO BEDTIME PRN PRN Reason: Insomnia Last Admin: 08/16/25 01:13 Dose: 6 mg Methylprednisolone Sodium Succinate (Methylprednisolone Sod Succ 40 Mg/Ml Vial) 20 mg IVPUSH Q12H [facility] Last Admin: 08/16/25 10:36 Dose: 20 mg Morphine Sulfate (Morphine Sulfate 4 Mg/Ml Cartridge) 3 mg IVPUSH Q4H PRN; Protocol PRN Reason: Pain, Severe (Pain Scale 7-10) Last Admin: 08/15/25 12:37 Dose: 3 mg Naloxone HCl (Naloxone Hcl 0.4 Mg/Ml Vial) 0.04 mg IVPUSH Q5M PRN PRN Reason: Excessive sedation or RR < 8 Ondansetron HCl (Ondansetron Hcl 4 Mg/2 Ml Vial) 4 mg IVPUSH Q8H PRN PRN Reason: Nausea and Vomiting Polyethylene Glycol (Polyethylene Glycol 3350 17 Gm Powd.Pack) 17 gm PO DAILY PRN PRN Reason: Constipation Senna (Sennosides 8.6 Mg Tablet) 17.2 mg PO BEDTIME [facility] Last Admin: 08/15/25 20:34 Dose: 17.2 mg Sodium Chloride (0.9 % Sodium Chloride Flush 3 Ml Syringe) 3 ml IVFLUSH QSHIFT [facility] Last Admin: 08/16/25 07:28 Dose: 3 ml Trazodone HCl (Trazodone Hcl 50 Mg Tablet) 50 mg PO BEDTIME PRN PRN Reason: Sleep Last Admin: 08/15/25 20:35 Dose: 50 mg Allergies Allergies Allergy/AdvReac Type Severity Reaction Status Date / Time No Known Allergies Allergy Mild UNKNOWN Verified 08/15/25 06:04 Assessment & Plan Assessment & Plan (1) Opioid use disorder: Status: Acute Code(s): F11.90 - Opioid use, unspecified, uncomplicated Assessment and Plan: * methadone 40mg * baclofen PRN for restless legs * will continue to follow and titrate dose as appropriate * lamp assembler to coordinate referral to [facility] and any additional referrals as requested by patient * HIV and Hepatitis C screening ordered as there are none in [facility] * take home narcan at discharge Total time managing care of this patient today __40__ minutes. PMFSH Past Medical History Medical History Cocaine abuse Acute asthma exacerbation Polysubstance abuse Family History Family History Maternal Uncle Cardiomyopathy Heart transplant recipient Social History Social History Household Members: None Household Members Other:: homeless Housing: Homeless Do you presently have visiting nurse or other home services: No Alcohol intake: current Alcohol intake frequency: does not drink Patient Tobacco Use Status: Never used Tobacco Substance Use Type: Heroin service: No
--- NOTE | 2025-08-16 12:47 | PM.PNORT ---
Subjective Subjective Date of Service: 08/16/25 Interval history: POD 1 s/p 1. Left small finger I and D of flexor tendon sheath 2. Left small finger I&D of PIP joint no overnight events resting in bed , dressing clean, dry and intact Physical Exam Vital Signs: Vital Signs: Last Vital Signs Temp 97.1 F 08/16/25 07:26 Pulse 88 08/16/25 11:36 Resp 16 08/16/25 11:36 BP 130/80 08/16/25 07:26 Pulse Ox 94 08/16/25 07:26 O2 Del Method Room Air 08/16/25 07:26 O2 Flow Rate 2 08/15/25 17:40 BMI result Body Mass Index 17.4 Const: General: cooperative and no acute distress Orientation/consciousness: patient oriented x3 Resp: Effort & Inspection: normal respiratory effort and able to speak in complete sentences Cardio: Peripheral pulses: Peripheral pulses 2+ throughout Neuro: General: patient oriented x3 Extrem: Other: left small finger incision clean, dry and intact. Mild swelling. Finger is less erythematous Procedures Date of Service Date of Service: 08/16/25 Progress Note: A&P Assessment and plan (1) Finger infection: Status: Acute Assessment and Plan: dressing change performed today work on ROM continue PO cultures negative so far f/u ortho 1 week Time Spent With Patient Time: Total time managing care of this patient today ____ minutes. Quality Stroke Does the patient have a stroke diagnosis?: No VTE Prior VTE?: No VTE Risk Level:: Medical - low VTE Device Contraindication: Treatment Not Indicated VTE Drug Contraindication: Treatment Not Indicated
--- NOTE | 2025-08-16 13:53 | MHC.CLN ---
NUTRITION PATIENT ASLEEP AT TIME OF VISIT. ATE ABOUT 75% OF LUNCH. HAD SNACKS AND SODA ON BEDSIDE TABLE. UNDERWEIGHT DUE TO SOCIAL/BEHAVIORAL ENVIRONMENTAL CIRCUMSTANCES. POSITIVE TOX SCREEN FOR COCAINE AND OPIATES. BMI=17.4. ADDING ENSURE BID TO PROMOTE NUTRITIONAL INTAKE. SUPPLEMENT PROVIDES 700 KCALS, 40 G PROTEIN. MONITOR FOR PO INTAKE.
--- NOTE | 2025-08-16 16:14 | MHC.CM.PN ---
pt unarousable addiction medicine will be assisitng pt with a residential placment
[2025-08-17 05:34] VITALS: BP 130/75; PULSE 69; RESP 16; TEMP 36.2; O2SAT 96
[2025-08-17] MEDS: methADONE HCl 20 MG/2 ML ORAL.CONC 45 MG PO (07:43)
[2025-08-17] MEDS: 0.9 % Sodium Chloride Flush 3 ML SYRINGE IVFLUSH (07:43)
[2025-08-17 08:00] VITALS: BP 126/77; PULSE 80; RESP 18; TEMP 36.2; O2SAT 96
[2025-08-17 08:05] LABS: HIV Num 1 0.06 S/CO (0.00-0.99); ~HepC Num1 0.17 S/CO (0.00-0.79); ~Hepatitis C Antibody Nonreactive (Nonreactive)
--- NOTE | 2025-08-17 09:08 | MHC.RECOVRN ---
Addendum entered by Carlton Lyn RN 08/17/25 13:20: Pt requesting to be discharged & transported to [facility] which is open till 7pm tonight. She is planning on continuing with bed search tonight & tomorrow and states she has somewhere to stay tonight. Only thing she is now requesting is Lyft to [facility]. Addendum entered by Carlton Lyn RN 08/17/25 12:55: [facility] no beds available. Addendum entered by Carlton Lyn RN 08/17/25 12:49: The following facilities have been contacted and so far [facility] - [facility] female beds available [facility] [place] - [facility] capacity [facility] - waiting for review [facility] - no response [facility] - no response Original Note: [facility] referrals sent to the following facilities per pt request: [facility]
--- NOTE | 2025-08-17 09:09 | P.DS_ITS ---
DS: Providers Provider Date of Service: 08/17/25 Date of admission: 08/15/25 07:50 Date of discharge: 08/17/25 Primary care physician: None Physician Consults: 08/15/25 10:35 Consult to Orthopedics Routine Consulting Provider: Gracie Jefferson Reason for consultation: left little finger infection Has provider been notified: Yes 08/15/25 13:06 Addiction Medicine Provider Routine Consulting Provider: Addiction Covering Reason for consultation: cocaine /fentanyl use Has provider been notified: No DS: Diagnosis Discharge Diagnosis (1) Opioid use disorder: Status: Acute DS: Summary Hospital Course Hospital Course: HPI 34-year-old female with a history of mild intermittent asthma and polysubstance use presented with 3 days of progressive swelling, redness, and pain of the left little finger. She reported a possible insect bite and attempted to squeeze the area, after which symptoms worsened. She denied fever but was unable to move the finger. She also reported shortness of breath, wheezing, and productive cough with clear sputum, unrelieved by frequent use of home inhalers, which she subsequently ran out of. She denied IV drug use, reporting crack cocaine use via smoking and intranasal fentanyl (2-3 bags daily). Hospital course: In the emergency department, the patient was started on intravenous Zosyn and vancomycin for suspected left little finger cellulitis/abscess. Shortly after administration of vancomycin, she developed pruritus and mild hyperemia of the face, neck, and upper extremities, which resolved with diphenhydramine. She also received one dose of methadone for opioid use disorder and an albuterol updraft for her asthma symptoms, though she continued to experience respiratory com plaints. Laboratory evaluation revealed a WBC of 12.4, and urine toxicology was positive for opiates and cocaine. Her vital signs were notable for a pulse of 105 with a normal respiratory rate. Imaging included a chest X-ray, which was unremarkable, and a left little finger X-ray, which demonstrated soft tissue edema without evidence of fracture, malalignment, or radiopaque foreign body. She was admitted and continued on intravenous Zosyn and doxycycline. The following day, she underwent incision and drainage of the left little finger by orthopedics with good result; orthopedics recommended outpatient follow-up in one week. Wound and blood cultures remained negative, though MRSA nasal screen was positive. Her asthma exacerbation was managed with bronchodilators and systemic steroids during her admission, and she will transition to a five-day course of oral prednisone and as-needed inhalers upon discharge. Addiction medicine was consulted and assisted in? Discharge Diagnoses: * Left little finger abscess, status post incision and drainage * Cellulitis of the left little finger * Mild intermittent asthma, acute exacerbation (improved) * Polysubstance use disorder (crack cocaine, intranasal fentanyl) * MRSA nasal colonization Time Attestation Discharge Coordination Time (in mins): 45 Quality: Safe Use of Opioids Does Pt have an Active Cancer Diagnosis on the Problem List?: No Quality: Stroke Does the patient have a stroke diagnosis?: No Physical Exam Vital Signs: Vital Signs: Last Vital Signs Temp 97.2 F 08/17/25 08:00 Pulse 80 08/17/25 08:00 Resp 18 08/17/25 08:00 BP 126/77 08/17/25 08:00 Pulse Ox 96 08/17/25 08:00 O2 Del Method Room Air 08/17/25 08:00 O2 Flow Rate 2 08/15/25 17:40 BMI result Body Mass Index 17.4 DS: Data Data Completed and Pending Labs on day of discharge: Laboratory Results - last 24 hr 08/16/25 16:49 Hepatitis C Ab (EIA) Nonreactive HIV 1&2 Ab/P24 Ag 4thGn Nonreactive Preliminary micro results at discharge 08/15/25 06:38 Blood Culture - Preliminary Blood - Venous No growth after 48 hours. 08/15/25 06:48 Blood Culture - Preliminary Blood - Venous No growth after 48 hours. 08/15/25 17:04 Routine Culture - Preliminary Finger Left Little No growth to date. 08/15/25 17:04 Routine Culture - Preliminary Finger Left Little Culture in progress. Discharge Plan Discharge Anticipated Discharge Date/Time: 08/16/25 15:57 Patient Disposition: Home, Self-Care Discharge Diagnosis: Cellulitis of finger, Asthma exacerbation Referrals: Oseas Echeverria PA [Physician Press Operator, Hand Surgery] - 1 Week Referral Note: 08/23/25 11:30 [facility] Oseas Echeverria PA Physician,None [Primary Care Provider, Medical] - 1 Week Discharge Medications: New doxycycline hyclate 100 mg tablet 100 mg PO BID 14 Days Qty: 28 0RF prednisone 20 mg tablet 40 mg PO DAILY Qty: 6 0RF Continued albuterol sulfate [Ventolin HFA] 90 mcg/actuation HFA aerosol inhaler 2 puff inhalation Q4-5H PRN (Reason: shortness of breath or wheezing) Qty: 6.7 0RF melatonin 5 mg Tablet 5 - 10 mg PO BEDTIME PRN (Reason: Sleep) Diet: Advance to usual diet Activity on Discharge: As tolerated Stand Alone Forms: Patient Portal Discharge page Print Language: Amharic Care Plan Goals: recovery from finger infection Health Concerns: finger infection asthma exacerbation opioid use disorder Plan of Treatment: * Take Doxycycline 100 mg PO BID x 7 days * Continue methadone as per addiction medicine recommendations * Albuterol inhaler as needed * Continue home asthma medications as prescribed * Take Prednisone as directed for asthma and continue usual inhalers * Daily dressing changes to left little finger wound * Monitor for signs of infection (increased redness, swelling, pain, fever, purulent drainage) * Outpatient orthopedic follow-up in 1 week * Continue engagement with addiction medicine and outpatient detox resources Assessment: see above
--- NOTE | 2025-08-17 10:36 | PM.PNORT ---
Subjective Subjective Date of Service: 08/17/25 Interval history: POD 2 s/p 1. Left small finger I and D of flexor tendon sheath 2. Left small finger I&D of PIP joint no overnight events resting in bed , dressing clean, dry and intact Physical Exam Vital Signs: Vital Signs: Last Vital Signs Temp 97.2 F 08/17/25 08:00 Pulse 80 08/17/25 08:00 Resp 18 08/17/25 08:00 BP 126/77 08/17/25 08:00 Pulse Ox 96 08/17/25 08:00 O2 Del Method Room Air 08/17/25 08:00 O2 Flow Rate 2 08/15/25 17:40 BMI result Body Mass Index 17.4 Const: General: cooperative and no acute distress Orientation/consciousness: patient oriented x3 Resp: Effort & Inspection: normal respiratory effort and able to speak in complete sentences Cardio: Peripheral pulses: Peripheral pulses 2+ throughout Neuro: General: patient oriented x3 Extrem: Other: left small finger incision clean, dry and intact. Mild swelling. Finger is less erythematous Procedures Date of Service Date of Service: 08/17/25 Progress Note: A&P Assessment and plan (1) Finger infection: Status: Acute Assessment and Plan: dressing change performed today work on ROM continue abx cultures negative so far f/u ortho 1 week Time Spent With Patient Time: Total time managing care of this patient today ____ minutes. Quality Stroke Does the patient have a stroke diagnosis?: No VTE Prior VTE?: No VTE Risk Level:: Medical - low VTE Device Contraindication: Treatment Not Indicated VTE Drug Contraindication: Treatment Not Indicated
--- NOTE | 2025-08-17 10:58 | MHC.CM.PN ---
Addendum entered by Radha Quiroz 08/17/25 14:47: [facility] AR[facility] FOR PT Addendum entered by Radha Quiroz 08/17/25 13:47: [facility] HER REQUEST Original Note: PER MD ROUNDS, PT WILL BE DISCHARGED TODAY [facility] IS TRYING TO FIND PT A DETOX BED IF NO TREATMENT BEDS ARE AVAILABLE, HALFWAY PLACEMENT WILL BE OFFERED
[2025-08-17] MEDS: Naloxone HCl Nasal TAKE HOME 4 MG SPRAY 8 MG NOSTRILALT (13:44)
== END 2025-08-17 14:04 | disposition home or self-care (01) | DRG 710 ==
LOC: HO.ED 07:48 → HO.EDOVER 07:56 → HO.S3 16:32
PROVIDERS: Hospitalist; Nurse Practitioner Psychiatric/Mental Health; Orthopaedic Surgery; Admitting Provider Family Medicine; Emergency Provider Emergency Medicine; Visit Provider Internal Medicine
PROC: 0L980ZZ Drainage of Left Hand Tendon, Open Approach (ICD-10-PCS; principal; 2025-08-15 15:30)
DX: A41.9 Sepsis, unspecified organism (principal); J45.21 Mild intermittent asthma with (acute) exacerbation; L03.012 Cellulitis of left finger; F11.10 Opioid abuse, uncomplicated; R63.6 Underweight; Z68.1 Body mass index [BMI] 19.9 or less, adult; F19.10 Other psychoactive substance abuse, uncomplicated; M65.942 Unspecified synovitis and tenosynovitis, left hand; G89.18 Other acute postprocedural pain; Z22.322 Carrier or suspected carrier of Methicillin resistant Staphylococcus aureus; Z59.02 Unsheltered homelessness; Z79.899 Other long term (current) drug therapy
CPT/HCPCS: 36415; 73140; 80048; 80076; 80307; 83605; 83735; 84702; 85025; 86803; 87040; 87070; 87147; 87205; 87389; 87640; 87641; 94640; 94660; 97165; 99285; J1200; J1271; J1885; J2003; J2004; J2250; J2270; J2543; J2704; J2795; J2919; J3010; J3374; S9485

== ENCOUNTER → 2025-08-15 06:32 | Outpatient (BNV) | payer OTHER, SELFPAY | PROVIDERS: Admitting Provider Family Medicine; Emergency Provider Emergency Medicine; Visit Provider Radiology Vascular & Interventional Radiology | DX: R60.0 Localized edema (principal) | CPT/HCPCS: 73140 ==

== ENCOUNTER → 2025-08-15 07:50 | Outpatient (BNV) | payer OTHER, SELFPAY | PROVIDERS: Admitting Provider Family Medicine; Emergency Provider Emergency Medicine; Visit Provider Nurse Practitioner Psychiatric/Mental Health | DX: F11.90 Opioid use, unspecified, uncomplicated (principal) | CPT/HCPCS: 99222 ==

== ENCOUNTER → 2025-08-15 07:50 | Outpatient (BNV) | payer OTHER, SELFPAY | PROVIDERS: Admitting Provider Family Medicine; Emergency Provider Emergency Medicine; Visit Provider Hospitalist | DX: L03.012 Cellulitis of left finger (principal); J45.41 Moderate persistent asthma with (acute) exacerbation | CPT/HCPCS: 99223; 99232 ==

== ENCOUNTER → 2025-08-15 07:50 | Outpatient (BNV) | payer OTHER, SELFPAY | PROVIDERS: Admitting Provider Family Medicine; Emergency Provider Emergency Medicine; Visit Provider Physician Assistant | DX: L08.9 Local infection of the skin and subcutaneous tissue, unspecified (principal) | CPT/HCPCS: 26020; 26080; 99024; 99223 ==